=== PATIENT | male | born 1980 | race Caucasian/White ===

== ENCOUNTER 2018-11-23 07:04 | Inpatient (IN) | payer OTHER ==
[2018-11-23] MEDS ORDERED: ADENOSINE 6 MG/2 ML VIAL ONE (07:21)
[2018-11-23] MEDS ORDERED: DILTIAZEM 25 MG/5 ML VIAL IVP ONE ×3 (07:26→15:05)
[2018-11-23] MEDS ORDERED: ONDANSETRON 4 MG/2 ML VIAL ONE (07:27)
[2018-11-23] MEDS ORDERED: DILTIAZEM 125 MG in D5W 125 ML IV ONE (07:29)
--- NOTE | 2018-11-23 07:34 | EDPHY ---
H & P Stated Complaint: R leg swelling Time Seen by Provider: 11/23/18 07:27 HPI/ROS: CHIEF COMPLAINT: Right leg pain HISTORY OF PRESENT ILLNESS: 38-year-old male presents with right leg pain. Onset of severe right lower extremity pain this morning. The pain is constant and aching. The pain extends from the thigh down to the foot. Associated with swelling in the right lower extremity. No other associated symptoms and no alleviating or aggravating factors. No chest pain or shortness of breath. No recent trauma and no prior similar symptoms. REVIEW OF SYSTEMS: complete 10 point ROS reviewed and is negative except for the noted elements in the HPI Source: Patient - Personal History Current Tetanus/Diphtheria Vaccine: Yes Current Tetanus Diphtheria and Acellular Pertussis (TDAP): Yes - Medical/Surgical History Hx Asthma: No Hx Chronic Respiratory Disease: No Hx Diabetes: No Hx Cardiac Disease: No Hx Renal Disease: No Hx Cirrhosis: No Hx Alcoholism: No Hx HIV/AIDS: No Hx Splenectomy or Spleen Trauma: No Other PMH: GERD - Social History Smoking Status: Current some day smoker Alcohol Use: Sober Drug Use: None - Physical Exam Exam: General Appearance: Alert, pleasant, obese Eyes: Pupils equal and round, no conjunctival pallor or injection ENT, Mouth: Mucous membranes moist Neck: Normal inspection Respiratory: Lungs are clear to auscultation anteriorly Cardiovascular: Irregularly irregular tachycardia Gastrointestinal: Abdomen is soft and nontender Neurological: A&O, motor 5/5, able to hold right lower extremity up against gravity Skin: Warm and dry Extremities: Bilateral pedal edema 3+ Vascular: unable to palpate pedal pulses bilaterally, feet are cold Psychiatric: Mood and affect normal Constitutional: Initial Vital Signs Heart Rate 194 H 11/23/18 07:08 Respiratory Rate 30 H 11/23/18 07:08 Blood Pressure 168/123 H 11/23/18 07:08 O2 Sat (%) 99 11/23/18 07:08 O2 Delivery Mode Nasal Cannula O2 (L/minute) 2 Allergies/Adverse Reactions: amoxicillin Allergy (Verified 11/23/18 09:51) Other-Enter Comments Penicillins Allergy (Verified 11/23/18 09:51) Other-Enter Comments Home Medications: Medication Instructions Recorded Ibuprofen [Motrin (*)] 200 mg PO DAILY PRN 11/23/18 Omeprazole 20 mg PO Q2D 11/23/18 Medical Decision Making - Diagnostics EKG Interpretation: EKG interpreted by me reveals atrial fibrillation, ventricular rate 200, low voltage throughout, poor R-wave progression. Interpretation: Abnormal EKG Imaging Results: Imaging Impressions Extremity Venous Study 11/23/18 07:28 Impression: 1. No evidence of deep vein thrombosis, with dampened venous waveforms. 2. No detectable arterial blood flow. Findings discussed with KENYA TOBIAS 11/23/2018 at 814. Chest/Thorax CTA 11/23/18 07:59 Impression: 1. Small focus of pulmonary embolism involving a right lower lobe branch. 2. Clot or filling defect in the left atrium on the left, extending to the left atrial appendage. 3. Large bilateral pleural effusions. 4. Nonspecific pulmonary nodule, noncalcified, in the right upper lobe, with linear nodular density in the right middle lobe with focal calcification. These are all nonspecific and could represent scar/inflammatory process. 5. No pericardial effusion. Findings and recommendations discussed with Dr. Kenya Tobias at 0947 hours on November 23, 2018. Final report concurs with initial preliminary interpretation. ED Course/Re-evaluation: This patient presents with a chief complaint of right lower extremity pain. 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 Stat EKG reveals atrial fibrillation with RVR. Clinical presentation concerning for acute thromboembolism. Distal pulses are nonpalpable, will obtain Doppler. Feet also cool, query whether this is secondary to vascular insufficiency versus extreme cold weather this morning. 0735: Troponin elevated at 0.38. EKG reviewed and reveals no ST segment elevation.. Echocardiogram ordered and cardiology consulted. Diltiazem 10 mg IV given, heart rate 160s. 0740: d/w Dr. Corona, will see in ED. 0815: RLE sono: no DVT, unable to locate arterial flow. ECHO complete, Dr. Vargas in room with pt. Discussed Heparin initiation, though concern for pericardial effusion with low voltage on EKG. Will send pt to CT for chest/abd with runoff while Dr. Vargas reviews ECHO. 0855: d/w Dr. 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 No effusion present, okay for initiation of heparin. Heparin per weight based protocol initiated. CT scan results pending. Patient remains in atrial fibrillation, with a ventricular rate in the 160s. The diltiazem drip was just increased to 15 milligrams/hour IV. Maintaining an adequate blood pressure on the diltiazem drip. 0950: CT results per Dr. Kassi Yang reveal a left atrial thrombus, left popliteal artery thrombus, right SFA thrombus and bilateral acute renal infarcts. There is also a tiny right lower lobe pulmonary embolism, bilateral pleural effusions and anasarca. Discussion regarding possible IR thrombectomy. 10am: Consulted Dr. Zoey Alanis for consideration of surgical thrombectomy. 1005: d/w Dr. Vargas, EF less than 5%, discussed CT results, will d/w Dr. Yang. Ultimately this patient went directly to the operating room for thrombectomy with Dr. Alanis. He will go to the ICU for further care. I spent a total of 60 minutes of critical care time in obtaining history, performing a physical exam, bedside monitoring of interventions, collecting and interpreting tests and discussion with consultants but not including time spent performing procedures. - Data Points Laboratory Results: Laboratory Results 11/23/18 07:22 11/23/18 07:22 11/23/18 11/23/18 11/23/18 07:40 07:25 07:22 WBC RBC Hgb POC Hgb 19.0 gm/dL H gm/dL (13.7-17.5) Hct POC Hct 56 % H % (40-51) MCV MCH MCHC RDW Plt Count MPV Neut % (Auto) Lymph % (Auto) Haines % (Auto) Eos % (Auto) Baso % (Auto) Nucleat RBC Rel Count Absolute Neuts (auto) Absolute Lymphs (auto) Absolute Monos (auto) Absolute Eos (auto) Absolute Basos (auto) Absolute Nucleated RBC Immature Gran % Immature Gran # PT INR APTT D-Dimer POC Sodium 133 mEq/L L mEq/L (135-145) Sodium POC Potassium 4.3 mEq/L mEq/L (3.3-5.0) Potassium POC Chloride 94 mEq/L L mEq/L (97-110) Chloride Carbon Dioxide POC Total CO2 21 mEq/L L mEq/L (22-31) Anion Gap POC BUN 17 mg/dL mg/dL (7-23) BUN Creatinine POC Creatinine 0.9 mg/dL mg/dL (0.7-1.3) Estimated GFR Glucose POC Glucose 415 mg/dL H mg/dL (70-100) Hemoglobin A1c Estim Average Glucose Calcium Magnesium Total Bilirubin Conjugated Bilirubin Unconjugated Bilirubin AST ALT Alkaline Phosphatase Creatine Kinase CK-MB (CK-2) Fraction CK-MB (CK-2) % Creatine Kinase Interp POC Troponin I 0.38 ng/mL H ng/mL (0.00-0.08) Troponin I C-React Prot High Sens Cancelled NT-Pro-B Natriuret Pep Total Protein Albumin Triglycerides Cholesterol Cholesterol Risk Factr LDL Cholesterol, Calc LDL Risk Factor VLDL Cholesterol Non-HDL Cholesterol HDL Cholesterol LDL/HDL Ratio Cholesterol/HDL Ratio TSH Specimen Hemolysis Ethyl Alcohol 11/23/18 11/23/18 11/23/18 07:22 07:22 07:22 WBC RBC Hgb POC Hgb Hct POC Hct MCV MCH MCHC RDW Plt Count MPV Neut % (Auto) Lymph % (Auto) Haines % (Auto) Eos % (Auto) Baso % (Auto) Nucleat RBC Rel Count Absolute Neuts (auto) Absolute Lymphs (auto) Absolute Monos (auto) Absolute Eos (auto) Absolute Basos (auto) Absolute Nucleated RBC Immature Gran % Immature Gran # PT INR APTT D-Dimer POC Sodium Sodium POC Potassium Potassium POC Chloride Chloride Carbon Dioxide POC Total CO2 Anion Gap POC BUN BUN Creatinine POC Creatinine Estimated GFR Glucose POC Glucose Hemoglobin A1c 11.4 % H % (4.0-6.0) Estim Average Glucose 280 mg/dL H mg/dL (68-126) Calcium Magnesium 1.8 mg/dL mg/dL (1.6-2.3) Total Bilirubin 2.5 mg/dL H mg/dL (0.1-1.4) Conjugated Bilirubin 1.5 mg/dL H mg/dL (0.0-0.5) Unconjugated Bilirubin 1.0 mg/dL mg/dL (0.0-1.1) AST 115 IU/L H IU/L (17-59) ALT 63 IU/L IU/L (21-72) Alkaline Phosphatase 129 IU/L H IU/L (38-126) Creatine Kinase 2217 IU/L H IU/L (0-224) CK-MB (CK-2) Fraction 11.40 ng/mL H ng/mL (0.00-4.55) CK-MB (CK-2) % 0.5 % % (0.0-4.0) Creatine Kinase Interp NEGATIVE (NEGATIVE) POC Troponin I Troponin I 0.353 ng/mL H ng/mL (0.000-0.034) C-React Prot High Sens > 15.0 mg/L mg/L NT-Pro-B Natriuret Pep Cancelled 5190 pg/mL H pg/mL (0-125) Total Protein 7.0 g/dL g/dL (6.3-8.2) Albumin 3.6 g/dL g/dL (3.5-5.0) Triglycerides 110 mg/dL mg/dL (40-150) Cholesterol 109 mg/dL L mg/dL (140-200) Cholesterol Risk Factr 1.0 (0.2-1.0) LDL Cholesterol, Calc 64 mg/dL L mg/dL (70-100) LDL Risk Factor 1.0 (0.2-1.0) VLDL Cholesterol 22 mg/dL mg/dL (8-25) Non-HDL Cholesterol 86 mg/dL L mg/dL (90-129) HDL Cholesterol 23 mg/dL L mg/dL (40-65) LDL/HDL Ratio 2.78 RATIO RATIO (1.00-3.64) Cholesterol/HDL Ratio 4.74 RATIO RATIO (1.00-4.97) TSH Cancelled 6.260 uIU/mL H uIU/mL (0.465-4.680) Specimen Hemolysis Cancelled 162 Ethyl Alcohol Cancelled < 10 mg/dL mg/dL (0-10) 11/23/18 11/23/18 11/23/18 07:22 07:22 07:22 WBC 16.75 10^3/uL H 10^3/uL (3.80-9.50) RBC 6.18 10^6/uL 10^6/uL (4.40-6.38) Hgb 15.8 g/dL g/dL (13.7-17.5) POC Hgb Hct 50.7 % % (40.0-51.0) POC Hct MCV 82.0 fL fL (81.5-99.8) MCH 25.6 pg L pg (27.9-34.1) MCHC 31.2 g/dL L g/dL (32.4-36.7) RDW 14.6 % % (11.5-15.2) Plt Count 257 10^3/uL 10^3/uL (150-400) MPV 11.4 fL fL (8.7-11.7) Neut % (Auto) 84.8 % H % (39.3-74.2) Lymph % (Auto) 9.3 % L % (15.0-45.0) Haines % (Auto) 4.7 % % (4.5-13.0) Eos % (Auto) 0.1 % L % (0.6-7.6) Baso % (Auto) 0.3 % % (0.3-1.7) Nucleat RBC Rel Count 0.0 % % (0.0-0.2) Absolute Neuts (auto) 14.20 10^3/uL H 10^3/uL (1.70-6.50) Absolute Lymphs (auto) 1.56 10^3/uL 10^3/uL (1.00-3.00) Absolute Monos (auto) 0.79 10^3/uL 10^3/uL (0.30-0.80) Absolute Eos (auto) 0.02 10^3/uL L 10^3/uL (0.03-0.40) Absolute Basos (auto) 0.05 10^3/uL 10^3/uL (0.02-0.10) Absolute Nucleated RBC 0.00 10^3/uL 10^3/uL (0-0.01) Immature Gran % 0.8 % % (0.0-1.1) Immature Gran # 0.13 10^3/uL H 10^3/uL (0.00-0.10) PT 16.6 SEC H SEC (12.0-15.0) INR 1.32 H (0.83-1.16) APTT 28.7 SEC SEC (23.0-38.0) D-Dimer 13.71 ug/mLFEU H ug/mLFEU (0.00-0.50) POC Sodium Sodium 129 mEq/L L mEq/L (135-145) POC Potassium Potassium 5.9 mEq/L H mEq/L (3.5-5.2) POC Chloride Chloride 96 mEq/L L mEq/L (97-110) Carbon Dioxide 19 mEq/l L mEq/l (22-31) POC Total CO2 Anion Gap 14 mEq/L mEq/L (6-14) POC BUN BUN 17 mg/dL mg/dL (7-23) Creatinine 0.9 mg/dL mg/dL (0.7-1.3) POC Creatinine Estimated GFR > 60 Glucose 416 mg/dL H mg/dL (70-100) POC Glucose Hemoglobin A1c Estim Average Glucose Calcium 8.7 mg/dL mg/dL (8.5-10.4) Magnesium Total Bilirubin Conjugated Bilirubin Unconjugated Bilirubin AST ALT Alkaline Phosphatase Creatine Kinase CK-MB (CK-2) Fraction CK-MB (CK-2) % Creatine Kinase Interp POC Troponin I Troponin I C-React Prot High Sens NT-Pro-B Natriuret Pep 5220 pg/mL H pg/mL (0-125) Total Protein Albumin Triglycerides Cholesterol Cholesterol Risk Factr LDL Cholesterol, Calc LDL Risk Factor VLDL Cholesterol Non-HDL Cholesterol HDL Cholesterol LDL/HDL Ratio Cholesterol/HDL Ratio TSH Specimen Hemolysis 131 Ethyl Alcohol Medications Given: Aspirin Buffered (Aspirin Ec) 81 mg PO DAILY [facility] Stop: 05/22/19 09:59 Last Admin: 11/23/18 11:03 Dose: Not Given Miscellaneous Medication (Omeprazole [Omeprazole]) 20 mg PO Q2D [facility] Stop: 05/22/19 09:59 Last Admin: 11/23/18 11:02 Dose: Not Given Discontinued Medications Digoxin (Lanoxin Injections) 125 mcg IVP Q1 [facility] Stop: 11/23/18 12:01 Last Admin: 11/23/18 11:39 Dose: 125 mcg Diltiazem HCl (Cardizem 25 Mg/5 Ml Vial) 10 mg IVP EDNOW ONE Stop: 11/23/18 07:29 Last Admin: 11/23/18 07:35 Dose: 10 mg Heparin Sodium (Porcine) (Heparin Injection) 0 unit IVP EDNOW ONE Stop: 11/23/18 08:55 Last Admin: 11/23/18 09:10 Dose: 10,000 units Heparin Sodium (Porcine) (Heparin Flush 2,000 Unit/Ns 1,000 Ml) Confirm Administered Dose 2,000 unit .ROUTE .STK-MED ONE Stop: 11/23/18 12:22 Last Admin: 11/23/18 14:02 Dose: 2,000 unit Diltiazem HCl 125 mg/ Dextrose 125 mls @ 0 mls/hr IV EDNOW ONE; As Directed PRN Reason: Protocol Stop: 11/23/18 07:30 Last Admin: 11/23/18 07:53 Dose: 125 mls Sodium Chloride (Ns) 500 mls @ 1,000 mls/hr IV EDNOW ONE PRN Reason: Protocol Stop: 11/23/18 08:11 Last Admin: 11/23/18 07:53 Dose: 500 mls Heparin Sodium (Porcine) (Heparin 50 Units/Ml (Premix)) 500 mls @ 0 mls/hr IV EDNOW ONE; Per Protocol PRN Reason: Protocol Stop: 11/23/18 08:55 Last Admin: 11/23/18 09:10 Dose: 500 mls Amiodarone HCl (Amiodarone Hcl) 100 mls @ 600 mls/hr IV ONCE ONE PRN Reason: Protocol Stop: 11/23/18 09:58 Last Admin: 11/23/18 10:21 Dose: Not Given Cefazolin Sodium/Dextrose (Ancef) 100 mls @ 200 mls/hr IV ONCALL ONE Stop: 11/23/18 13:59 Last Admin: 11/23/18 14:02 Dose: 100 mls Midazolam HCl (Versed) 2 mg IVP ONCALL ONE Stop: 11/23/18 12:45 Last Admin: 11/23/18 13:20 Dose: 2 mg Morphine Sulfate (Morphine) 4 mg IVP EDNOW ONE Stop: 11/23/18 07:36 Last Admin: 11/23/18 07:36 Dose: 4 mg Ondansetron HCl (Zofran) 4 mg IVP EDNOW ONE Stop: 11/23/18 07:36 Last Admin: 11/23/18 07:36 Dose: 4 mg Point of Care Test Results: Chemistry 11/23/18 11/23/18 07:40 07:25 POC Sodium 133 mEq/L L mEq/L (135-145) POC Potassium 4.3 mEq/L mEq/L (3.3-5.0) POC Chloride 94 mEq/L L mEq/L (97-110) POC Total CO2 21 mEq/L L mEq/L (22-31) POC BUN 17 mg/dL mg/dL (7-23) POC Creatinine 0.9 mg/dL mg/dL (0.7-1.3) POC Glucose 415 mg/dL H mg/dL (70-100) POC Troponin I 0.38 ng/mL H ng/mL (0.00-0.08) ISTAT H&H 11/23/18 07:40 POC Hgb 19.0 gm/dL H gm/dL (13.7-17.5) POC Hct 56 % H % (40-51) Departure - Departure Disposition: [facility] Inpatient Acute Clinical Impression: Arterial embolism and thrombosis of lower extremity, Renal infarct Cardiomyopathy Qualifiers: Cardiomyopathy type: unspecified Qualified Code(s): I42.9 - Cardiomyopathy, unspecified Condition: Critical
[2018-11-23] MEDS ORDERED: ONDANSETRON 4 MG/2 ML VIAL IVP ONE (07:35)
[2018-11-23 07:38] LABS: PLATELET COUNT 257 10^3/uL (150-400)
[2018-11-23] MEDS ORDERED: NS 500 ML IV ONE (07:42)
[2018-11-23 07:46] LABS: INR 1.32 (0.83-1.16); PROTIME(PATIENT) 16.6 SEC (12.0-15.0)
[2018-11-23] MEDS ORDERED: IOHEXOL 300 mgI/ML (OMNIPAQUE) 150 ML BTL IV ONE ×2 (08:04→08:05)
[2018-11-23] MEDS ORDERED: IOHEXOL 350mgI/ML (OMNIPAQUE) 150 ML BTL IV ONE (08:24)
[2018-11-23] MEDS ORDERED: HEPARIN 10,000 UNIT/10 ML MDV (1,000 UNIT/ML) IVP ONE (08:54)
[2018-11-23] MEDS ORDERED: HEPARIN/DEXTROSE 500 ML IV ONE (08:54)
--- NOTE | 2018-11-23 09:07 | ECHO ---
[email or web address] [address] [address] Main: [phone] Fax: Transthoracic Echocardiogram Name: ESSENCE CORDON MR#: [id number] Study Date: 11/23/2018 Study Time: 08:08 AM Date of : 1980 Age: 38 year(s) Height: 193 cm (76 in.) Weight: 158.76 kg (350 lb.) BSA: 2.81 m2 Gender: Male Examination: Echo Indication: Afib with RVR, elevated troponin, ?PE Image Quality: Technically Difficult Contrast: Requested by: Kenya Tobias BP: 143 mmHg/128 mmHg Heart Rate: Rhythm: Indication: Afib with RVR, elevated troponin, ?PE Procedure Staff Electric Mule Operator: Peggy Rogers [facility] Reading Physician: Jason Vargas MD Requesting Provider: Conclusions: No pericardial effusion. Severely reduced LV systolic function. Doppler suggests no significant valvular abnormalities. Measurements: Chambers Valvular Assessment AV/MV Valvular Assessment TV/PV Normal Normal Normal Name Value Range Name Value Range Name Value Range Continued Measurements: Findings: Left Ventricle: Reduced LV function. Extremely technically difficult exam due to patient body habitus. Very limited evaluation of all cardiac structures. (No Signature Object) Patient: ESSENCE CORDON Study Date: 11/23/2018 Page 1 of 1 08:08 AM [id number]
[2018-11-23] MEDS ORDERED: AMIODARONE HCL 100 ML IV ONE (09:49)
[2018-11-23] MEDS ORDERED: FUROSEMIDE 20 MG/2 ML VIAL IVP ONE (09:49)
--- NOTE | 2018-11-23 09:55 | PDGENHP ---
History and Physical History and Physical: CC: Leg pain HISTORY: The patient states he has new onset of severe diffuse achy pain with some numb sensation and tingling throughout RLE, but not in a radicular anatomic pattern and no associated lumbar pain. He does acknowledge chronic leg edema felt due to venous insufficiency and uses support hose. He has no history of thromboembolic dz, no hx of arterial dz, but he does smoke, does drink heavily, and has some cocaine use In the ER leg ischemia was suspected and CT angio done. He was found to have rapid afib, which is new for him, with no other history of heart illenss. He has had no angina like pain or palpitations. 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 I have reviewed the list and ordered appropriate medicines. PHYSICAL EXAMINATION: Vital Signs:initially hypertensive with HR 200 irregular, no fever, resps ok; dilt drip started in ER with better rate control and blood pressure Patient Relations Coordinator: rapid a fib Examination: General: alert, anxious, uncomfortable; marked central obesity Skin: warm, dry; remarkable facial plethora HEENT: normal Neck: no mass or jvd Resps: relaxed Lungs: clear breath sounds Heart: tachy, irregular, no murmur Abdomen: soft, nondistended, nontender, +BS, no mass Upper Extremities: normal Lower Extremities: R leg looks ischemic from hip down, cold discolored, painful , decreased sensation; L leg has less pronounced signs of ischemia below knee; notable chronic stasis changes are apparent bilaterally No Bleeding or bruising Neurologic: normal speech/language, 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, no focal weakness IV site: looks normal LABORATORY DATA: Elevated white count 51524 with predominance neutrophils, platelets normal D-dimer elevated 13.7 Metabolic acidosis present with CO2 19 Sodium was low 129 likely caused by hyperglycemia and not a true hyponatremia K 5.9 Minimal elevation of troponin is caused by his leg ischemia, CPK 2200+ urine concentrated (but after IV ) UA with + dip for blood, and protein ( noncath'd) and hyaline casts c/w acute infarcts Urine + for cocaine, marijuana (narcotics were given in ER which is likely source of narcotic in urine) RADIOLOGY STUDIES: I reviewed images from CT angiogram runoff which show acute arterial occlusion right SFA 100%, occlusion at low L popliteal artery, both renal artheries occluded, and sizable thrombus in Left Atrium of heart. There is anasarca and ascites. 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 The plan will be rate control and anticoagulation as far as heart issues for now, and I agree with this. I reviewd the case with Dr De Jesus and Dr Hicks. All feel he is at high risk of bleeding with any attempt at thrombolysis and also risk or renal failure with more contrast. Dr Alanis has taken the patient to the OR for thrombectomy of R SFA. I observed in the OR and there was quite a bit of thrombus removed. He did make some urine just before surgery. PLANS: * Admission ICU * Heparin drip was started in the ER continue that for now * follow hemodynamics closely, will need somewhat high filling pressures * follow renal fxn, lytes carefully; have reviewed w Dr Cervantes who will see him * will see what resp status is post op, may need assisted ventilation of on form or another, have reviewed w Dr Wright * Will start insulin therapy with a drip at this time * with his renal issues likely need to avoid ACEI, so with his cardiac issues would like to use some B Annabella if hemodynamics tolerate; this would also be helpful if he has any withdrawal from etoh/cocaine * CIWA * thiamine * * Expect sodium to improve with treatment of glucose as well > 95 mins bedside critical care time by me today
[2018-11-23] MEDS ORDERED: NALOXONE HCL 0.4 MG/ML INJ IVP PRN (09:59)
[2018-11-23] MEDS ORDERED: NON-FORMULARY NEW DRUG (Omeprazole [Omeprazole] 20 MG) PO SCH (10:00)
[2018-11-23] MEDS ORDERED: ZOLPIDEM TARTRATE 5 MG TAB PO PRN (10:01)
[2018-11-23] MEDS ORDERED: ONDANSETRON 4 MG/2 ML VIAL IVP PRN (10:01)
--- NOTE | 2018-11-23 10:03 | PDCARCONS ---
Cardiology Consult Reason for Consult: Leg pain Chief Complaint: Leg pain Requesting Physician: Torin History of Present Illness: 38-year-old male no prior cardiovascular history history of alcohol use, cocaine use admitted with acute onset right leg pain. 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 He chronically uses venous support hose for severe venous insufficiency. He has had an ulcerated great toe which he thought was due to a callus. He was well until today when he developed the acute onset of right pain in his leg. This was associated with numbness and tingling. He came to the emergency department where he was found to be tachycardic with a rate of 200 beats per minute. An EKG showed atrial fibrillation with rapid ventricular response. There is overall low voltage across the precordium asked to comment. He had an echocardiogram performed to exclude pericardial effusion. There was no pericardial effusion however there is a severe dilated cardiomyopathy with an ejection fraction less than 20%. Patient denies PND orthopnea. He does not feel palpitations he has had no syncope or near syncope. He has had no chest pain. He did have a viral type illness several weeks ago which he described as influenza. This has resolved and he is feeling well. Patient has no family history of cardiomyopathy Is no history of diabetes, hypertension, hyperlipidemia. He is a smoker. History Information - Allergies/Home Medication List Allergies/Adverse Reactions: amoxicillin Allergy (Verified 11/23/18 09:51) Other-Enter Comments Penicillins Allergy (Verified 11/23/18 09:51) Other-Enter Comments Home Medications: Ibuprofen [Motrin (*)] 200 mg PO DAILY PRN 11/23/18 [Last Taken Unknown] Prilosec 11/23/18 [Last Taken Unknown] I have personally reviewed and updated: family history, medical history, social history, surgical history Past Medical History: - Social History Smoking Status: Current some day smoker Alcohol Use: Sober Drug Use: None Physical Exam Physical Exam: Temp Pulse Resp BP Pulse Ox 149 H 18 114/90 H 95 11/23/18 09:44 11/23/18 09:44 11/23/18 09:44 11/23/18 09:44 O2 (L/minute) 2 Constitutional: obese, other (Mild respiratory distress) Eyes: anicteric sclera Ears, Nose, Mouth, Throat: dry mucous membranes Cardiovascular: irregularly irregular Respiratory: respiratory distress Gastrointestinal: soft, non-tender abdomen Skin: No rash Musculoskeletal: other (Ulceration of the pinky toe on the right with exudate. Anasarca to the belly button.) Neurologic: AAOx3, No facial droop Psychiatric: interacting appropriately Lymph, Heme, Immunologic: no cervical LAD, no supraclavicular LAD Lab and Imaging 11/23/18 07:22 11/23/18 07:22 WBC 16.75 10^3/uL (3.80-9.50) H 11/23/18 07:22 RBC 6.18 10^6/uL (4.40-6.38) 11/23/18 07:22 Hgb 15.8 g/dL (13.7-17.5) 11/23/18 07:22 POC Hgb 19.0 gm/dL (13.7-17.5) H 11/23/18 07:40 Hct 50.7 % (40.0-51.0) 11/23/18 07:22 POC Hct 56 % (40-51) H 11/23/18 07:40 MCV 82.0 fL (81.5-99.8) 11/23/18 07:22 MCH 25.6 pg (27.9-34.1) L 11/23/18 07:22 MCHC 31.2 g/dL (32.4-36.7) L 11/23/18 07:22 RDW 14.6 % (11.5-15.2) 11/23/18 07:22 Plt Count 257 10^3/uL (150-400) 11/23/18 07:22 MPV 11.4 fL (8.7-11.7) 11/23/18 07:22 Neut % (Auto) 84.8 % (39.3-74.2) H 11/23/18 07:22 Lymph % (Auto) 9.3 % (15.0-45.0) L 11/23/18 07:22 [place] % (Auto) 4.7 % (4.5-13.0) 11/23/18 07:22 Eos % (Auto) 0.1 % (0.6-7.6) L 11/23/18 07:22 Baso % (Auto) 0.3 % (0.3-1.7) 11/23/18 07:22 Nucleat RBC Rel Count 0.0 % (0.0-0.2) 11/23/18 07:22 Absolute Neuts (auto) 14.20 10^3/uL (1.70-6.50) H 11/23/18 07:22 Absolute Lymphs (auto) 1.56 10^3/uL (1.00-3.00) 11/23/18 07:22 Absolute Monos (auto) 0.79 10^3/uL (0.30-0.80) 11/23/18 07:22 Absolute Eos (auto) 0.02 10^3/uL (0.03-0.40) L 11/23/18 07:22 Absolute Basos (auto) 0.05 10^3/uL (0.02-0.10) 11/23/18 07: Absolute Nucleated RBC 0.00 10^3/uL (0-0.01) 11/23/18 07: Immature Gran % 0.8 % (0.0-1.1) 11/23/18 07: Immature Gran # 0.13 10^3/uL (0.00-0.10) H 11/23/18 07:22 PT 16.6 SEC (12.0-15.0) H 11/23/18 07:22 INR 1.32 (0.83-1.16) H 11/23/18 07:22 APTT 28.7 SEC (23.0-38.0) 11/23/18 07:22 D-Dimer 13.71 ug/mLFEU (0.00-0.50) H 11/23/18 07:22 POC Sodium 133 mEq/L (135-145) L 11/23/18 07:40 Sodium 129 mEq/L (135-145) L 11/23/18 07:22 POC Potassium 4.3 mEq/L (3.3-5.0) 11/23/18 07:40 Potassium 5.9 mEq/L (3.5-5.2) H 11/23/18 07:22 POC Chloride 94 mEq/L (97-110) L 11/23/18 07:40 Chloride 96 mEq/L (97-110) L 11/23/18 07:22 Carbon Dioxide 19 mEq/l (22-31) L 11/23/18 07:22 POC Total CO2 21 mEq/L (22-31) L 11/23/18 07:40 Anion Gap 14 mEq/L (6-14) 11/23/18 07:22 POC BUN 17 mg/dL (7-23) 11/23/18 07:40 BUN 17 mg/dL (7-23) 11/23/18 07:22 Creatinine 0.9 mg/dL (0.7-1.3) 11/23/18 07:22 POC Creatinine 0.9 mg/dL (0.7-1.3) 11/23/18 07:40 Estimated GFR > 60 11/23/18 07:22 Glucose 416 mg/dL (70-100) H 11/23/18 07:22 POC Glucose 415 mg/dL (70-100) H 11/23/18 07:40 Calcium 8.7 mg/dL (8.5-10.4) 11/23/18 07:22 POC Troponin I 0.38 ng/mL (0.00-0.08) H 11/23/18 07:25 NT-Pro-B Natriuret Pep 5220 pg/mL (0-125) H 11/23/18 07:22 Specimen Hemolysis 131 11/23/18 07:22 EKG Interpretation: Positive for: other (Atrial fibrillation with rapid ventricular response. Low voltage across the precordial leads.) A/P Assessment: Impression: New onset dilated cardiomyopathy in this 38-year-old male complicated by morbid obesity, substance abuse. Patient clearly has atrial fibrillation in response. With right leg pain concerned about embolic phenomena. Recommendations are for anticoagulation. Recommendations are for rate control with agents that would not suppress inotrope P in light of severely reduced LV function. Will start amiodarone and digoxin. Begin low-dose beta-sasha. Begin low-dose Lasix in the setting of volume overload. With hyperkalemia at this point would avoid Aldactone, Yao inhibitor but this will need to be added soon. Will try to add Isordil hydralazine in the short term for afterload reduction. Plan for serologic evaluation for other etiologies for his myopathy. Clearly he will need advanced heart failure treatment. Will follow along with you. Review of Systems Review of Systems: - Review of Systems Constitutional: malaise. denies: chills, fever EENTM: no symptoms reported Respiratory: no symptoms reported Cardiac: no symptoms reported Gastrointestinal/Abdominal: diarrhea. denies: nausea, vomiting Genitourinary: no symptoms Musculoskelatal: other (Leg pain) Skin: lesions, rash Neurological: no symptoms Hematologic/Lymphatic: no symptoms reported Immunologic/allergic: no symptoms reported
[2018-11-23] MEDS ORDERED: DIGOXIN 500 MCG/2 ML AMP ONE (10:35)
[2018-11-23] MEDS: DIGOXIN 500 MCG/2 ML AMP IVP SCH ×3 (10:38→17:51)
[2018-11-23] MEDS ORDERED: ISOSORBIDE DINITRATE 20 MG TAB PO SCH (11:00)
[2018-11-23] MEDS: ASPIRIN EC 81 MG TAB PO SCH (11:03)
[2018-11-23 11:30] LABS: CREATINE KINASE 2217 IU/L (0-224)
[2018-11-23] MEDS ORDERED: IOTHALAMATE MEG (CONRAY) 50 ML VIAL IV ONE (12:21)
[2018-11-23] MEDS ORDERED: PAPAVERINE HCL 60 MG/2 ML SDV ONE (12:21)
[2018-11-23] MEDS ORDERED: BACITRACIN 50,000 UNITS/10 ML SYR IRR ONE (12:22)
[2018-11-23] MEDS ORDERED: BUPIVACAINE 0.5% 30 ML SDV ONE (12:22)
[2018-11-23] MEDS ORDERED: POLYMYXIN B SULFATE 500,000 UNIT/10 ML SYR IRR ONE (12:22)
[2018-11-23] MEDS ORDERED: CEFAZOLIN 2 GM/DEXTROSE/100 ML BAG IV ONE (12:24)
[2018-11-23] MEDS ORDERED: VANCOMYCIN HCL/NORMAL SALINE 250 ML IV ONE (12:32)
[2018-11-23] MEDS ORDERED: fentaNYL 100 MCG/2 ML INJ ONE ×3 (12:37→14:21)
--- NOTE | 2018-11-23 12:43 | PDANEPAE ---
ANE History of Present Illness HERE FOR EMBOLECTOMY FOR ACUTE LE embolus. Cardiomyopathy with EF less than 20 AF with RVR ANE Past Medical History - Cardiovascular History Hx Hypertension: No Hx Arrhythmias: Yes Hx Chest Pain: No Hx Coronary Artery / Peripheral Vascular Disease: No Hx CHF / Valvular Disease: Yes Hx Palpitations: No - Pulmonary History Hx COPD: No Hx Asthma/Reactive Airway Disease: No Hx Recent Upper Respiratory Infection: No Hx Oxygen in Use at Home: No Hx Sleep Apnea: No - Endocrine History Hx Diabetes: No Hypothyroid: No Hyperthyroid: No - Renal History Hx Renal Disorders: Yes ANE Review of Systems Review of systems is: negative Review of Systems: - Exercise capacity Exercise capacity: <4 METS ANE Patient History - Allergies Allergies/Adverse Reactions: amoxicillin Allergy (Verified 11/23/18 09:51) Other-Enter Comments Penicillins Allergy (Verified 11/23/18 09:51) Other-Enter Comments - Home Medications Home medications: home medication list seen and reviewed Home Medications: Ibuprofen [Motrin (*)] 200 mg PO DAILY PRN 11/23/18 [Last Taken Unknown] Omeprazole 20 mg PO Q2D 11/23/18 [Last Taken 11/22/18] - NPO status NPO Status: no food or drink >8 hours - Smoking Hx Smoking Status: Current some day smoker - Alcohol Use Alcohol Use: Sober ANE Labs/Vital Signs - Labs Result Diagrams: 11/23/18 07:22 11/23/18 07:22 - Vital Signs Vital Signs: reviewed preoperatively; see RN documention for details Blood Pressure: 116/89 Heart Rate: 138 Respiratory Rate: 20 O2 Sat (%): 96 Height: 193.04 cm Weight: 158.757 kg ANE Physical Exam - Airway Neck exam: FROM, increased neck circumference Mallampati Score: Class 3 - Pulmonary Pulmonary: no respiratory distress - Cardiovascular Cardiovascular: irregularly irregular - ASA Status ASA Status: IV, E ANE Anesthesia Plan Anesthesia Plan: general endotracheal anesthesia Lines/Monitors: arterial line
[2018-11-23] MEDS ORDERED: MIDAZOLAM 2 MG/2 ML VIAL IVP ONE (12:44)
[2018-11-23] MEDS ORDERED: MIDAZOLAM 2 MG/2 ML VIAL ONE (12:52)
[2018-11-23] MEDS ORDERED: PHENYLEPHRINE HCL 100 MCG/ML SYR ONE (12:52)
[2018-11-23] MEDS ORDERED: ePHEDrine SULFATE 25 MG/5 ML SYR ONE (12:52)
[2018-11-23] MEDS ORDERED: LR 1,000 ML IV ONE (13:02)
[2018-11-23] MEDS ORDERED: KETAMINE 200 MG/20 ML VIAL ONE (13:10)
[2018-11-23] MEDS ORDERED: ceFAZolin 2 GM/DEXTROSE 100 ML IV ONE (13:30)
[2018-11-23] MEDS ORDERED: PROPOFOL 200 MG/20 ML VIAL ONE (13:30)
--- NOTE | 2018-11-23 14:36 | CPEKG ---
Test Reason : OPEN Blood Pressure : / mmHG Vent. Rate : 199 BPM Atrial Rate : 204 BPM P-R Int : 162 ms QRS Dur : 087 ms QT Int : 258 ms P-R-T Axes : -16 110 000 degrees QTc Int : 469 ms Atrial fibrillation with rapid V-rate Low voltage, extremity leads Anteroseptal infarct, old Borderline T abnormalities, inferior leads Confirmed by Kenya Tobias ([id number]) on 11/23/2018 2:35:50 PM Referred By: Kenya Tobias Confirmed By:Kenya Tobias
--- NOTE | 2018-11-23 14:36 | CPEKG ---
Test Reason : OPEN Blood Pressure : / mmHG Vent. Rate : 157 BPM Atrial Rate : 000 BPM P-R Int : 000 ms QRS Dur : 071 ms QT Int : 331 ms P-R-T Axes : 000 119 000 degrees QTc Int : 536 ms Atrial fibrillation Low voltage, extremity leads Prolonged QT interval Confirmed by Kenya Tobias ([id number]) on 11/23/2018 2:36:05 PM Referred By: Mulugeta Harkins Confirmed By:Kenya Tobias
[2018-11-23] MEDS ORDERED: ROCURONIUM 50 MG/5 ML VIAL ONE (14:56)
[2018-11-23] MEDS ORDERED: THROMBIN (BOVINE) 20,000 UNIT VIAL TP ONE (15:05)
[2018-11-23 15:09] LABS: HEPATITIS B SURFACE ANTIGEN NEGATIVE (NEGATIVE)
[2018-11-23 15:19] LABS: HEPATITIS B CORE AB IGM NEGATIVE (NEGATIVE)
[2018-11-23 15:28] LABS: HEPATITIS C ANTIBODY TOTAL NEGATIVE (NEGATIVE)
[2018-11-23] MEDS ORDERED: SUGAMMADEX SODIUM 200 MG/2 ML VIAL IVP ONE (15:47)
[2018-11-23] MEDS: hydrALAZINE 10 MG TAB PO SCH ×2 (16:00→22:48)
--- NOTE | 2018-11-23 16:10 | POSTANESTH ---
Post Anesthetic Evaluation Cardiovascular Status: Normal, Stable Respiratory Status: Normal, Stable Level of Consciousness/Mental Status: Mildly Sleepy, Arousable Pain Control: Adequate, Prn Tx Ordered Nausea/Vomiting Control: Adequate, Prn Tx Ordered Complications Possibly Related to Anesthesia: None Noted
--- NOTE | 2018-11-23 16:56 | POSTOPPROG ---
Post Op Note Date of Operation: 11/23/18 Surgeon: Jonathan Alanis Anesthesiologist: NITO Anesthesia: GET(General Endotracheal) Pre-op Diagnosis: RIGHT FEMORAL ARTERY OCCLUSION WITH EMBOLUS AND THROMBOSIS Post-op Diagnosis: SAME Indication: PAIN THREATENED LIMB Procedure: RIGHT FEMORAL-POPLITEAL EMBOLECTOMY AND THROMBECTOMY Findings: DEFINITE EMBOLI TO THE COMMON FEMORAL PROFUNDA FEMORALS AND SFA ORIGIN Inf/Abcess present in the surg proc area at time of surgery?: No Depth: Deep Incisional (Fascial) EBL: 50-100 Complications: NONE Specimen(s): EMBOLI
[2018-11-23] MEDS: DILTIAZEM 125 MG in D5W 125 ML IV SCH (17:10)
[2018-11-23] MEDS ORDERED: D50W 25 GM/50 ML SYR IVP PRN (17:20)
[2018-11-23] MEDS ORDERED: D5W 1,000 ML IV SCH ×2 (17:20→17:45)
[2018-11-23] MEDS: HEPARIN/DEXTROSE 500 ML IV SCH (17:30)
[2018-11-23] MEDS: INSULIN REGULAR HUMAN 100 UNIT in NS 100 ML IV SCH (17:43)
[2018-11-23] MEDS ORDERED: INSULIN REGULAR HUMAN 100 UNIT in NS 100 ML IV SCH (18:00)
[2018-11-23 18:13] LABS: INR 1.53 (0.83-1.16); PROTIME(PATIENT) 18.5 SEC (12.0-15.0)
[2018-11-23] MEDS: NS 1,000 ML IV SCH (18:32)
[2018-11-23] MEDS: CARVEDILOL 6.25 MG TAB PO SCH (18:44)
[2018-11-23] MEDS: ISOSORBIDE DINITRATE 10 MG TAB PO SCH (19:23)
[2018-11-23] MEDS: THIAMINE HCL 100 MG TAB PO SCH (19:23)
[2018-11-23 20:11] LABS: CREATINE KINASE 1235 IU/L (0-224)
[2018-11-23] MEDS: MELATONIN 3 MG TAB PO SCH (23:04)
[2018-11-24 06:14] LABS: CREATINE KINASE 1011 IU/L (0-224)
[2018-11-24 06:25] LABS: PLATELET COUNT 222 10^3/uL (150-400)
[2018-11-24] MEDS: HEPARIN 10,000 UNIT/10 ML MDV (1,000 UNIT/ML) IVP PRN (07:25)
[2018-11-24] MEDS ORDERED: PANTOPRAZOLE SODIUM 40 MG TAB PO SCH (09:00)
--- NOTE | 2018-11-24 10:03 | SOAPPROG ---
SOAP Progress Note Assessment/Plan: Assessment: 1. Dilated cardiomyopathy 2. Persistent atrial fibrillation complicated by multiple emboli 3. Ischemic leg secondary to emboli status post thrombectomy 4. Substance abuse positive urine tox for cocaine and THC 11/24/18 10:00 Impression: Stable hemodynamics with improved heart rate overnight. Improved perfusion to the right leg. Tolerating early medical therapy well. Etiology at this point unclear. Viral would top the list based on recent flu-like illness versus AFib with poorly controlled rate over significant period of time versus substance abuse. Other etiologies less likely. Will need further assessment once he has stabilized from his ischemic insult to his leg. Recommendations: Advanced heart failure consultation this afternoon. Continue heparin with transition to DOAC. Continue rate control strategy. Considerations for further risk stratification over the next several days. CT angiogram verses MR versus standard cardiac catheterization. Substance abuse will need to be discussed. Subjective: Feeling better. No shortness of breath, PND, orthopnea. No chest pain. Leg is improving. Objective: Vital Signs Temp Pulse Resp BP Pulse Ox 37.1 C 102 H 15 124/86 H 98 11/24/18 09:00 11/24/18 09:00 11/24/18 09:00 11/24/18 09:00 11/24/18 09:00 Laboratory Results 11/24/18 05:20 11/24/18 05:20 11/23/18 11/24/18 11/25/18 05:59 05:59 05:59 Intake Total 3785 Output Total 850 Balance 2935 PT 18.5 SEC (12.0-15.0) H 11/23/18 17:35 INR 1.53 (0.83-1.16) H 11/23/18 17:35 Laboratory Tests 11/24/18 11/24/18 11/24/18 05:20 05:20 06:23 Sodium 129 L Potassium 4.8 Creatinine 0.8 POC Glucose 193 H Creatine Kinase 1011 H Troponin I 0.577 H 11/24/18 08:15 Sodium Potassium Creatinine POC Glucose 195 H Creatine Kinase Troponin I Physical Exam - Physical Exam General Appearance: alert, mild distress, obese Respiratory: No wheezing Cardiac/Chest: irregularly irregular Abdomen: soft Skin: warm/dry Neuro/Psych: alert, No facial droop ICD10 Worksheet Patient Problems: Problems Problem Status Onset Cardiomyopathy Acute Arterial embolism and thrombosis of lower extremity Acute Renal infarct Acute Review of Systems - Review of Systems Constitutional: denies: chills, fever Respiratory: denies: shortness of breath, wheezing Cardiac: edema. denies: chest pain, irregular heart rate Gastrointestinal/Abdominal: no symptoms reported Genitourinary: no symptoms Skin: no symptoms Neurological: no symptoms Hematologic/Lymphatic: no symptoms reported
[2018-11-24] MEDS ORDERED: IOHEXOL 350mgI/ML (OMNIPAQUE) 150 ML BTL IV ONE ×4 (10:10→23:26)
--- NOTE | 2018-11-24 10:32 | HOSPPROG ---
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, also consider cocaine induced disease though he states minimal/uncommon intake of cocaine, denies meth * Diabetes mellitus with poor control at home, on insulin drip here * pseudohyponatremia due to high sugars * hyperkalemia * minimal elevation of troponin on blood testing in the ER is from his ischemic leg and I am not currently concerned about ischemic heart disease * Consider risk of of EtOH/cocaine withdrawal so will watch carefully for that, though his stated intake is low enough that this will not occur her if he is being truthful * Open wound on right 5th toe from a recent trauma, no definite signs of infection at present but given his poor circulation and diabetes will x-ray the foot * I have a strong suspicion for pulmonary HTN, R CHF from obesity hypovent/J LUIS; patient has chronic severe bilateral leg edema and chronic stasis dermatitis * Tobacco abuse * alcohol abuse I reviewed in detail today with doctors Jason Vargas in [place] Seen by me on hospitals rounds and multidisciplinary rounds today PLANS: * Ongoing IV heparin * Procedure today to try an open left popliteal artery * Follow renal function very closely * Continue current cardiac medications (Lasix, Coreg, digoxin, diltiazem, hydralazine) * Would consider switch from hydralazine to an Yao inhibitor if renal function remains stable * Continue heparin drip, follow sugars and electrolytes closely * X-rays of right foot to assess for any possible bony injury or infection of right 5th toe * Continue CIWA monitoring for the moment * Thiamin replacement * Acid suppression * will continue to review closely with cardiology; he will obviously need very close follow-up in the outpatient setting as well and he may end up turning out to need to consider referral for transplant if he remains a candidate * Recommend outpatient testing for sleep apnea SUBJECTIVE: Feels better with notably decreased pain and increased movement and right lower extremity Still of pain in left lower extremity below-knee No abdominal or flank pain No chills or sweats, no nausea or vomiting No dyspnea OBJECTIVE Vitals reviewed: Remains tachycardic and tachypneic, no fever, blood pressure is 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 The wound is right 5th toe still does not appear overtly infected but hard to tell with acute ischemia and chronic stasis pigmentation and edema; left leg below mid calf still cold with decreased sensation and with chronic stasis pigmentation but no diabetic foot ulcers; upper extremities okay Dry dressing over surgical wound from yesterday iv site ok Lab data: White count still elevated greater than 14,000 Very mild decrease in hemoglobin especially considering his vascular surgery yesterday Stable platelets Blood sugars markedly better in 160s to 190s CPK decreased to [address] angio with runoff done today for follow-up from yesterday, I reviewed the images: There is still some thrombus in the common femoral artery but that superficial femoral is now open and there is much better flow to the distal extremity. There is still complete occlusion of the left popliteal. Left atrial thrombus still visible, renal arteries still occluded no change in the renal infarcts no sign of bleeding at the infarcts Objective: Vital Signs Temp Pulse Resp BP Pulse Ox 37.1 C 102 H 15 124/86 H 98 11/24/18 09:00 11/24/18 09:00 11/24/18 09:00 11/24/18 09:00 11/24/18 09:00 Laboratory Results 11/24/18 05:20 11/24/18 05:20 11/23/18 11/24/18 11/25/18 06:59 06:59 06:59 Intake Total 3785 Output Total 850 Balance 2935 PT 18.5 SEC (12.0-15.0) H 11/23/18 17:35 INR 1.53 (0.83-1.16) H 11/23/18 17:35 - Time Spent With Patient Time Spent with Patient: greater than 35 minutes Time Spent with Patient: Greater than 35 minutes spent on this patients care, greater than 50% of time spent counseling, educating, and coordinating care regarding the above mentioned plan. ICD10 Worksheet Patient Problems: Problems Problem Status Onset Arterial embolism and thrombosis of lower extremity Acute Cardiomyopathy Acute Renal infarct Acute
[2018-11-24] MEDS: hydrALAZINE 10 MG TAB PO SCH ×3 (11:11→23:54)
[2018-11-24] MEDS: ASPIRIN EC 81 MG TAB PO SCH (11:11)
[2018-11-24] MEDS: ISOSORBIDE DINITRATE 10 MG TAB PO SCH ×3 (11:12→18:18)
[2018-11-24] MEDS: PANTOPRAZOLE SODIUM 40 MG TAB PO SCH (11:12)
[2018-11-24] MEDS: CARVEDILOL 6.25 MG TAB PO SCH ×2 (11:13→18:18)
[2018-11-24] MEDS: THIAMINE HCL 100 MG TAB PO SCH (11:13)
[2018-11-24] MEDS: DIGOXIN 50 MCG/ML UDSYR PO SCH (11:17)
--- NOTE | 2018-11-24 12:26 | PDMN ---
Medical Necessity Medical necessity: MCG: [facility] cardiology- pt presents with new numbness tingling in RLE, CT showed R leg ischemia with SFA occlusion, L leg ischemia with popliteal occlusion, bilat. renal artery occlusions and infarcts. L atrial thrombus, also new rapid afib, severely impaired L ventricular systolic function, suspect pro acute post viral cardiomyopathy, poss cocaine induced disease, hyperkalemia, DM, high risk ETOH/cocaine W/D, poss pulm HTN, R CHF from obesity hypovent/J LUIS., tobacco abuse, anticipate > 2 MN ongoing med nec care- further monitoring, eval and tx of above.
--- NOTE | 2018-11-24 12:31 | ASMTCASEMG ---
Living Arrangements What is your living Answers: Alone arrangement? Who do you live with? Type Of Residence What kind of residence do Answers: Apartment you live in? 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 Patient is being admitted for acute ischemic right leg w SFA oclusion, left leg ischemia, bilateral renal artery occlusions and infarcts, left atrial thrombus, AFIB, and severely impaired left ventricular systolic function. Patient drinks ETOH and smokes and is at high risk for withdrawal. No therapies ordered at this time. CAGE needed when patient is able to participate. D/C plan TBD. CM will follow. Date Signed: 11/24/2018 12:31 PM Electronically Signed By:Taty Servin LCSW
--- NOTE | 2018-11-24 12:31 | SOAPPROG ---
SOAP Progress Note Assessment/Plan: Assessment: CHF consultation performed and dictated. 38 y/o man with no previous cardiac and medical issues but regular ETOH and cocaine use came to ER yesterday with painful right leg and found to be in afib at 180bpm, CHF and clot in right leg arterial system. I reviewed his attempted transthoracic echo from yesterday and almost uninterpretable. LVEF 15-30% I think and cannot tell much else. Limited by fast afib rate and morbid obesity. Pt currently with no CP, shortness of breath at rest or perceived palpitations. REC: 1)increase Coreg to 12.5mg PO BID 2)start Aldactone 25mg PO qam. 3)rest of meds without changes. 4)consider repeat transthoracic or even do MOISES once afib rate < 100bpm next week to better asses LVEF, RVEF and valvular function. 5)high suspicion he has thrombus in heart or had thrombus in heart and would not do L/R cardiac cath this hospitalization. 6)discussed with Jonel need to stop all ETOH and cocaine use. Thanks. I will see again Tuesday and my cardiology partners will round on thru weekend. 11/24/18 12:27 Objective: Vital Signs Temp Pulse Resp BP Pulse Ox 37.1 C 106 H 28 H 116/70 95 11/24/18 09:00 11/24/18 12:00 11/24/18 12:00 11/24/18 12:00 11/24/18 12:00 Laboratory Results 11/24/18 05:20 11/24/18 05:20 11/23/18 11/24/18 11/25/18 05:59 05:59 05:59 Intake Total 3785 Output Total 850 Balance 2935 PT 18.5 SEC (12.0-15.0) H 11/23/18 17:35 INR 1.53 (0.83-1.16) H 11/23/18 17:35 ICD10 Worksheet Patient Problems: Problems Problem Status Onset Arterial embolism and thrombosis of lower extremity Acute Cardiomyopathy Acute Renal infarct Acute
[2018-11-24] MEDS: HEPARIN/DEXTROSE 500 ML IV SCH ×2 (13:05→22:40)
--- NOTE | 2018-11-24 13:37 | GCON ---
[f rep st] CONSULTATION CHF CONSULT DATE OF CONSULTATION: 11/24/2018 REASON FOR CONSULTATION: Evaluate gentleman with new acute systolic heart failure and recommend futu re CHF management. HISTORY OF PRESENT ILLNESS: I was asked by Dr. Jason Vargas to consult for the above reasons. 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 He is chronically morb idly obese and does use frequent heavy alcohol and cocaine use. He presented to the emergency room y esterday mostly for right leg pain and was found to be in atrial fibrillation at 180 beats per minute with a very limited transthoracic echo because of obesity and fast atrial fibrillation rate suggesti ng an LVEF of somewhere below 30%. He was also found to have acute clot in his right arterial leg sy stem and has had vascular surgery for that. Currently, he is resting comfortably in bed with no ches t pain or rest shortness of breath or sense of his heart beating out of sync. He still has pain in h is legs. He does not exercise much and does not feel like his heart has been beating out of sync bef ore this hospitalization. PAST MEDICAL HISTORY: 1. New onset systolic heart failure. 2. Atrial fibrillation. 3. Clot in right leg arterial system. 4. Morbid obesity. 5. Heavy alcohol and cocaine use. PAST SURGICAL HISTORY: None, except for clot removal by Vascular Surgery, yesterday, of his right le g. CURRENT MEDICATIONS: 1. Aspirin 81 mg per day. 2. Carvedilol 6.25 mg twice daily. 3. Digoxin 0.25 mg p.o. daily. 4. Diltiazem drip at 15 mg per minute. 5. Lasix 20 mg intravenous every 8 hours. 6. Heparin drip. 7. Isordil 10 mg p.o. three times daily. ALLERGIES: No known drug allergies. SOCIAL HISTORY: As per HPI. FAMILY HISTORY: Unremarkable for premature coronary disease. REVIEW OF SYSTEMS: The patient reports no recent fevers, chills or weight change in the last several months. He has had no TIA or GI bleed symptoms. The rest of 10-point review of systems is negative . PHYSICAL EXAM: VITAL SIGNS: Afebrile, pulse 120 and irregularly irregular, blood pressure 132/92, r espirations 20. GENERAL: A morbidly obese gentleman in no acute distress without chest pain or usin g accessory respiratory muscles. EYES: Pupils equal and reactive to light. ENT: Oral mucosa with no cyanosis. NECK: Jugular venous pressure difficult to assess because of his short, obese neck but probably in the 8-9 cm range. Carotid pulses 2+ bilaterally with no obvious bruits. LUNGS: Clear t o auscultation bilaterally without rales, rhonchi or wheezing. HEART: Irregularly irregular with a fast heart rate. Distant heart sounds. No obvious murmur or S3. GI: Abdominal exam is soft and no ntender. No guarding or rebound. EXTREMITIES: Has 1 to 2+ edema to mid calf. MUSCULOSKELETAL: No scoliosis. NEURO: Normal affect and mood. Neck, no nuchal rigidity. SKIN: No bleeding or cyanos is. LABS: White count 14.6, hematocrit 40, platelets 222,000, MCV 80. INR 1.53. Sodium 129, potassium 4.8, chloride 99, bicarbonate 23, BUN 21, creatinine 0.8, glucose 183. CPK 1011, troponin 0.6. NT p roBNP level 5190. IMAGING: Transthoracic echocardiogram reviewed by me. Very limited, almost not interpretable study secondary to morbid obesity and the fast atrial fibrillation rate but probably an LVEF of 20% to 30%. Cannot comment on RV function or valvular function. IMPRESSION: A 38-year-old gentleman with atrial fibrillation with rapid ventricular response and acu te systolic heart failure with a left ventricular ejection fraction probably in the 20% to 30% range and clot in his right leg arterial system. Probably, the etiology of his left ventricular dysfunctio n is tachycardia mediated from his atrial fibrillation or toxin related from alcohol and cocaine. He is mildly but not massively volume overloaded. RECOMMENDATIONS: 1. Would increase carvedilol to 12.5 mg p.o. b.i.d. 2. Would start on Aldactone 25 mg per day. 3. Rest of medications without change. 4. Once his atrial fibrillation rate is less than 110, probably next week, would try to repeat a tra nsthoracic echocardiogram, maybe with intravenous Definity or even a transesophageal echo to better d efine his LV and RV function, valvular function and if any clot in the heart. 5. Would not do a diagnostic left and right heart catheterization this hospitalization as I am perez rned the patient does have cardiac thrombus in his heart or did, which has dislodged and gone to his leg. 6. Discussed with him honestly the need to stop completely alcohol and cocaine use. Thank you for allowing me to participate in the care of Mr. Gilman. Cardiology Service will follow a long closely with you during his hospitalization and offer him followup in the [facility] ic. /[id number]/MODL
--- NOTE | 2018-11-24 14:19 | SOAPPROG ---
SOAP Progress Note Assessment/Plan: Assessment/plan: 38 y/o M with DM and hx of cocaine abuse s/p R femoral-popliteal embolectomy and thrombectomy for acute ischemic leg POD #1 R foot warm today with excellent biphasic pedal pulses on doppler. R groin dressing cdi. L foot cold and with faint pedal pulses on doppler. Repeat CTA with runoff today shows patent R SFA, but persistent occlusion in L popliteal artery and tibioperoneal trunk. This is difficult to access surgically, but may be amenable to catheter directed thrombolysis. However, with recent surgery, catheter directed thrombolysis contraindicated. Will continue heparin gtt in the hopes that his L leg arterial occlusion opens up. Bilateral renal artery occlusions. uop adequate and Cr nl. S: Reports that R leg feels markedly better from prior to surgery. Mild incisional pain. Denies outright L foot pain, but does have numbness/tingling. O: Alert Afebrile VSS, HDS Cardiac: irregularly irregular Chest: Ctab, no increased wob Abdomen: soft, nontender RLE: 3+ edema throughout, red/purple skin color change, + pedal pulses on doppler, brisk cap refill LLE: 3+ edema throughout, faint pedal pulses on doppler. Cold to palpation 11/24/18 14:09 Objective: Vital Signs Temp Pulse Resp BP Pulse Ox 37.1 C 75 24 H 110/84 H 95 11/24/18 09:00 11/24/18 13:32 11/24/18 13:32 11/24/18 13:32 11/24/18 13:32 Laboratory Results 11/24/18 05:20 11/24/18 05:20 11/23/18 11/24/18 11/25/18 05:59 05:59 05:59 Intake Total 3785 Output Total 850 Balance 2935 PT 18.5 SEC (12.0-15.0) H 11/23/18 17:35 INR 1.53 (0.83-1.16) H 11/23/18 17:35 ICD10 Worksheet Patient Problems: Problems Problem Status Onset Arterial embolism and thrombosis of lower extremity Acute Cardiomyopathy Acute Renal infarct Acute
[2018-11-24] MEDS: FUROSEMIDE 20 MG/2 ML VIAL IVP SCH (14:44)
--- NOTE | 2018-11-24 15:36 | GCON ---
[f rep st] CONSULTATION [facility] CONSULTATION DATE OF CONSULTATION: 11/24/2018 REFERRING PHYSICIAN: Mulugeta Harkins MD REASON FOR ADMISSION TO INTENSIVE CARE UNIT: Includes acute ischemic right leg with SFA occlusion, l eft leg ischemia with popliteal occlusion, bilateral renal artery occlusions and infarcts, and left a trial mural thrombus as well as atrial fibrillation. HISTORY OF PRESENT ILLNESS: I was asked to see the patient in consultation by Dr. Mulugeta Harkins. T he patient is a 38-year-old white male with an extensive past medical history including morbid obesit y and chronic leg edema. He came to the emergency room with complaints of severe pain in his right l ower extremity with evidence of numbness. He was initially seen in the emergency room, found to have significant leg ischemia. A CT angiogram was performed. He was admitted to Intensive Care Unit on a heparin drip. He subsequently underwent a right fem-pop embolectomy and thrombectomy by Dr. Elías Alanis. He has also been seen by Cardiology. In discussion with the patient, he states with the ex ception of some pain, he feels quite well. He is thirsty. He denies any chest pain, pleuritic-type chest pain, or anginal equivalent. There is no cough or production of sputum. REVIEW OF SYSTEMS: A 10-point review of systems is performed and negative except for what is listed in HPI. PAST MEDICAL HISTORY: Again, significant for alcoholism, cocaine use, morbid obesity. He also has n ew-onset systolic heart failure and atrial fibrillation. PAST SURGICAL HISTORY: Again, recent clot surgery. ALLERGIES: None known to medications. CURRENT MEDICATIONS: Include Isordil, heparin, Lasix, diltiazem, digoxin, carvedilol, and aspirin. SOCIAL HISTORY: He smokes cigarettes and drinks excessive amounts of alcohol. He also uses cocaine and marijuana. He is single, without children. 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 He has sherine ed in [place] for several years, is originally from [place]. FAMILY HISTORY: Noncontributory. PHYSICAL EXAM: VITAL SIGNS: Blood pressure is 113/76, pulse is 82, respirations 24. He is afebrile . Oxygen saturation is 89% on 4 L. GENERAL: He is a morbidly obese but extremely pleasant 38-year- old white male who is resting comfortably on supplemental oxygen. HEENT: Eyes are PERRLA, EOMI. Th roat shows no erythema or tonsillar hypertrophy. NECK: Supple. There is no cervical adenopathy. H EART: Heart sounds are distant, irregular, irregular. LUNGS: Diminished breath sounds. No wheezes present. ABDOMEN: Soft, nontender. Bowel sounds are present in all 4 quadrants. EXTREMITIES: Sh ow significant lower extremity edema. LABORATORIES: White count is 14.6, hemoglobin 13, hematocrit 39, platelet count is 222. Sodium 129, potassium 4.8, chloride 99, CO2 is 23, BUN 21, creatinine 0.8, glucose is 183. IMPRESSION: 1. Morbid obesity. 2. Ischemic right leg with superficial femoral artery occlusion. 3. Status post right femoral-popliteal embolectomy and thrombectomy. 4. Atrial fibrillation. 5. Acute systolic heart failure with ejection fraction of 20% to 30%. RECOMMENDATIONS: 1. Continue heparin. 2. Adequate pain control. 3. Continue heart rate control. 4. Agree with Cardiology consultation. 5. Aggressive blood sugar control. 6. Anticipate more surgical intervention. 7. I have impressed upon the patient the need for lifestyle change including weight loss and cessati on of drug use and tobacco use. Thank you very much for allowing me to participate in the care of this interesting patient and will f alirio along with you. /[id number]/MODL
[2018-11-24] MEDS: INSULIN REGULAR HUMAN 100 UNIT in NS 100 ML IV SCH (20:46)
[2018-11-24] MEDS: fentaNYL 100 MCG/2 ML INJ IVP PRN (20:53)
--- NOTE | 2018-11-24 22:24 | SOAPPROG ---
[facility] Progress Note Assessment/Plan: Assessment: s/p thrombectomy earlier today pulses on R but not on L On heparin drip. Around 2029, increased pain. Pain continued and I was called Now, strong doppler pulse on L On R no signal PT or DP. Cannot feel me touching plantar surface of toes on R but can on L Pain over dorsum of foot Legs equally swollen Discussed with Dr. Alanis and Dr. Yang. CTA. May need re-exploration vs fasciotomy NPO Plan: 11/24/18 22:20 Objective: Vital Signs Temp Pulse Resp BP Pulse Ox 37.1 C 100 22 H 113/71 97 11/24/18 09:00 11/24/18 22:00 11/24/18 22:00 11/24/18 22:00 11/24/18 22:00 Laboratory Results 11/24/18 05:20 11/24/18 05:20 11/23/18 11/24/18 11/25/18 05:59 05:59 05:59 Intake Total 3785 2464 Output Total 850 910 Balance 2935 1554 PT 18.5 SEC (12.0-15.0) H 11/23/18 17:35 INR 1.53 (0.83-1.16) H 11/23/18 17:35 ICD10 Worksheet Patient Problems: Problems Problem Status Onset Arterial embolism and thrombosis of lower extremity Acute Cardiomyopathy Acute Renal infarct Acute
[2018-11-25] MEDS: fentaNYL 100 MCG/2 ML INJ IVP PRN (00:01)
[2018-11-25] MEDS: MELATONIN 3 MG TAB PO SCH ×2 (00:04→21:44)
[2018-11-25] MEDS: FUROSEMIDE 20 MG/2 ML VIAL IVP SCH ×4 (00:05→21:44)
[2018-11-25] MEDS: DILTIAZEM 125 MG in D5W 125 ML IV SCH (00:10)
[2018-11-25] MEDS ORDERED: ceFAZolin 2 GM/DEXTROSE 100 ML IV ONE (00:13)
[2018-11-25] MEDS ORDERED: ceFAZolin 3 GM in D5W 100 ML IV ONE (00:30)
[2018-11-25] MEDS ORDERED: PAPAVERINE HCL 60 MG/2 ML SDV ONE (00:32)
[2018-11-25] MEDS ORDERED: PROPOFOL/EMULSION 500 MG/50 ML BOTTLE IV ONE (01:15)
[2018-11-25] MEDS ORDERED: fentaNYL 250 MCG/5 ML INJ ONE (01:15)
[2018-11-25] MEDS ORDERED: KETAMINE 200 MG/20 ML VIAL ONE (01:16)
[2018-11-25] MEDS ORDERED: MIDAZOLAM 2 MG/2 ML VIAL ONE (01:50)
[2018-11-25] MEDS ORDERED: IOTHALAMATE MEG (CONRAY) 50 ML VIAL IV ONE (02:37)
--- NOTE | 2018-11-25 02:53 | PDANEPAE ---
ANE History of Present Illness 38 year old morbidly obese male admitted in CHF secondary to cardiomyopathy with thrombis in right leg for thrombectomy. ANE Past Medical History - Cardiovascular History Hx Hypertension: Yes Hx Arrhythmias: Yes Hx Chest Pain: No Hx Coronary Artery / Peripheral Vascular Disease: No Hx CHF / Valvular Disease: Yes Hx Palpitations: Yes - Pulmonary History Hx COPD: No Hx Asthma/Reactive Airway Disease: No Hx Recent Upper Respiratory Infection: No Hx Oxygen in Use at Home: No Hx Sleep Apnea: Yes Sleep Apnea Screening Result - Last Documented: Positive - Endocrine History Hx Diabetes: Yes Hypothyroid: No Hyperthyroid: No - Renal History Hx Renal Disorders: Yes - Chronic Pain History Chronic Pain: No ANE Review of Systems Review of systems is: negative Review of Systems: ANE Patient History - Allergies Allergies/Adverse Reactions: amoxicillin Allergy (Verified 11/23/18 09:51) Other-Enter Comments Penicillins Allergy (Verified 11/23/18 09:51) Other-Enter Comments - Home Medications Home Medications: Ibuprofen [Motrin (*)] 200 mg PO DAILY PRN 11/23/18 [Last Taken Unknown] Omeprazole 20 mg PO Q2D 11/23/18 [Last Taken 11/22/18] - NPO status NPO Since - Liquids (Date): 11/24/18 NPO Since - Liquids (Time): 19:00 NPO Since - Solids (Date): 11/24/18 NPO Since - Solids (Time): 18:00 - Smoking Hx Smoking Status: Current some day smoker - Alcohol Use Alcohol Use: Sober ANE Labs/Vital Signs - Labs Result Diagrams: 11/24/18 05:20 11/24/18 05:20 - Vital Signs Blood Pressure: 109/69 Heart Rate: 92 Respiratory Rate: 18 O2 Sat (%): 97 Height: 193.04 cm Weight: 192.6 kg ANE Physical Exam - Airway Neck exam: decreased ROM Mallampati Score: Class 4 Mouth exam: poor dentition - Pulmonary Pulmonary: no respiratory distress - Cardiovascular Cardiovascular: irregularly irregular - ASA Status ASA Status: IV, E ANE Anesthesia Plan Anesthesia Plan: general endotracheal anesthesia Lines/Monitors: arterial line Specialized Airway: video laryngoscope
[2018-11-25] MEDS ORDERED: THROMBIN (BOVINE) 5,000 UNIT VIAL TP ONE (03:24)
--- NOTE | 2018-11-25 03:45 | POSTOPPROG ---
Post Op Note Date of Operation: 11/25/18 Surgeon: Leanne Bynum Shale Planer Operator Helper: jim Anesthesiologist: darren Anesthesia: GET(General Endotracheal) Pre-op Diagnosis: ischemic foot Post-op Diagnosis: same Indication: 38 yo with co-morbid, lost pulse to foot, angio w flap/ Procedure: r groin exploration, thrombectomy, patch, angio Findings: multiple large thrombus Inf/Abcess present in the surg proc area at time of surgery?: No Depth: Superfical (Skin SQ) EBL: Minimal Specimen(s): none
--- NOTE | 2018-11-25 04:14 | POSTANESTH ---
Post Anesthetic Evaluation Cardiovascular Status: Similar to Pre-Op Cond Respiratory Status: Similar to Pre-op Cond. Level of Consciousness/Mental Status: Can Participate in Eval Pain Control: Adequate, Prn Tx Ordered Nausea/Vomiting Control: Adequate, Prn Tx Ordered Complications Possibly Related to Anesthesia: None Noted
[2018-11-25 04:50] LABS: PLATELET COUNT 230 10^3/uL (150-400)
--- NOTE | 2018-11-25 07:06 | GOP ---
[f rep st] OPERATIVE REPORT DATE OF OPERATION: 11/25/2018 SURGEON: Leanne Bynum MD DATA GOVERNANCE ANALYST: Jonathan Alanis MD ANESTHESIA: General. ANESTHESIOLOGIST: Dr. Kim Rico PREOPERATIVE DIAGNOSIS: Ischemic foot with occlusion of common femoral artery. POSTOPERATIVE DIAGNOSIS: 1. Ischemic foot with occlusion of common femoral artery. 2. Thrombus at common femoral artery, profunda and superficial femoral artery. PROCEDURE PERFORMED: Thrombectomy R common femoral artery, R profunda and R SFA and angiogram and patch angioplasy FINDINGS: Large amounts of thrombus in SIGNAL TOWER DIRECTOR, Profunda and SFA. Completion angiogram with adequate flow to foot SPECIMENS: None. ESTIMATED BLOOD LOSS: 750 cc. INDICATIONS: The patient is a 38-year-old man with multiple medical problems. He has recently undergone thrombectomy in his right groin. He developed abrupt onset of pain. I was called to evaluate him after pulses were not able to be detected. He had loss of sensation over the plantar service of his toes and I could not Doppler pulses. CTA was performed which showed occlusion at the common femoral artery, possibly due to a flap. DESCRIPTION OF PROCEDURE: Patient was brought into the operating room, placed supine on the table, and general anesthesia was administered. He was continued on his Heparin drip. His abdomen and right leg were prepped circumferentially. Drapes were placed. I removed the previous angie. I dissected down through the skin and subcutaneous tissues. I removed the old Vicryl suture and then was able to expose the common femoral artery. I used vessel loops to control the common femoral artery, profunda, and superficial femoral artery. A bolus of Heparin was administered. I then removed the Prolene suture from the common femoral artery. There was very little blood flow at this site, and clot was removed. I then used a 4 Patel and removed clot from the profunda artery. After several passes, this was clear. Next, I moved to the superficial femoral artery. The clot was removed. The blood flow was very dark and was not brisk. I then continued on to perform a similar procedure in the common femoral artery proximally. Again, clot was removed. Attention was then drawn back to the superficial femoral artery and the Patel was passed again. At this point, there was good flow. Each of the arteries was flushed. I then performed an angiogram and there was excellent flow down his leg. I elected to close the artery with a patch, and 6.0 HS Hemashield was cut to size and sutured into place. A tacking suture was required. Hemostasis was achieved. Vessel loops were removed. 5000 units of thrombin was placed in the wound. I closed the adipose tissue and superficial fascia in multiple layers with 2-0 Vicryl. I closed the skin with angie, ABD, and Tegaderm was applied. He was awakened in the operating room, extubated, transferred to PACU in stable condition. /[id number]/MODL MTDD
[2018-11-25] MEDS: ASPIRIN EC 81 MG TAB PO SCH (08:27)
[2018-11-25] MEDS: ISOSORBIDE DINITRATE 10 MG TAB PO SCH ×3 (08:27→14:05)
[2018-11-25] MEDS: CARVEDILOL 6.25 MG TAB PO SCH (08:27)
[2018-11-25] MEDS: THIAMINE HCL 100 MG TAB PO SCH (08:28)
[2018-11-25] MEDS: DILTIAZEM HCL/D5W 125 ML IV SCH ×2 (08:28→23:59)
[2018-11-25] MEDS: hydrALAZINE 10 MG TAB PO SCH ×3 (08:28→21:44)
[2018-11-25] MEDS: PANTOPRAZOLE SODIUM 40 MG TAB PO SCH (08:28)
--- NOTE | 2018-11-25 08:31 | PDINTPN ---
[facility] Progress Note Assessment/Plan: Assessment: * Extensive arterial clot -continue heparin * Status post fem-pop embolectomy in thrombectomy * Renal artery embolism * Left atrial thrombus * Morbid obesity * Atrial fibrillation-rate controlled * Cardiomyopathy-new. Ejection fraction of 20 - 30%. * Polysubstance abuse * Alcoholism * Pain-well controlled -continue pain meds * Diabetes- -continue on insulin drip * Likely pulmonary hypertension-unable to assess from echo secondary to body habitus * Probable obstructive sleep apnea-will need outpatient sleep study * Probable obesity hypoventilation syndrome Subjective: Resting comfortably. Pain well controlled. Objective: Vital Signs Temp Pulse Resp BP Pulse Ox 36.5 C 79 17 129/80 H 100 11/25/18 04:00 11/25/18 07:00 11/25/18 07:00 11/25/18 07:00 11/25/18 07:00 Laboratory Results 11/25/18 04:30 11/25/18 04:30 11/24/18 11/25/18 11/26/18 05:59 05:59 05:59 Intake Total 3785 4589 Output Total 850 1160 Balance 2935 3429 PT 18.5 SEC (12.0-15.0) H 11/23/18 17:35 INR 1.53 (0.83-1.16) H 11/23/18 17:35 - Time Spent With Patient Time Spent With Patient: 35 min of time spent with patient, over 1/2 involved with coordination of care or counseling. Case discussed with nursing Physical Exam - Physical Exam General Appearance: alert, no apparent distress EENT: PERRL/EOMI Neck: non-tender Respiratory: chest non-tender, No normal breath sounds (Distant) Cardiac/Chest: normal peripheral pulses, regular rate, rhythm, other (Distant heart sounds) Peripheral Pulses: 1+: dorsalis-pedis (R), dorsalis-pedis (L) Abdomen: normal bowel sounds, non-tender, soft Male Genitalia: deferred Rectal: deferred Skin: normal color, warm/dry Extremities: non-tender Neuro/Psych: no motor/sensory deficits, alert, normal mood/affect, oriented x 3 ICD10 Worksheet Patient Problems: Problems Problem Status Onset Arterial embolism and thrombosis of lower extremity Acute Cardiomyopathy Acute Renal infarct Acute
[2018-11-25] MEDS: HEPARIN/DEXTROSE 500 ML IV SCH ×2 (09:00→19:03)
[2018-11-25] MEDS: NS 1,000 ML IV SCH (09:09)
[2018-11-25] MEDS ORDERED: DIGOXIN 250 MCG TAB PO SCH (10:00)
[2018-11-25] MEDS: DIGOXIN 50 MCG/ML UDSYR PO SCH (11:28)
[2018-11-25] MEDS: DIGOXIN 250 MCG TAB PO SCH (11:31)
[2018-11-25] MEDS ORDERED: PROTOCOL POTASSIUM 1 DOSE MISC PRN ×2 (12:48→23:40)
--- NOTE | 2018-11-25 12:54 | PDCARPN ---
Cardiology Progress Note Assessment/Plan: Assessment/plan: 38-year-old male with morbid obesity, cocaine and alcohol abuse admitted 11/23 with ischemic right lower extremity. Was found to have embolism to right femoral artery requiring surgical embolectomy/thrombectomy. He required reoperation early in the morning of 2 9 in the same right femoral region, concerning for recurrent embolism. Also has renal infarcts. On admission was in rapid atrial fibrillation and on echo has ejection fraction of 10-20%. On CT scan he has left atrial appendage thrombus which is the presumed nidus of his embolic events. Also diagnosed with diabetes here complicated by hyponatremia. 1. Systemic embolization to renals and right femoral artery. He is on intravenous heparin. Will plan for MOISES with anesthesia support tomorrow to reassess left atrial appendage and also left ventricular function and evaluate for presence of ventricular thrombus. He remains at very high risk for stroke. This was discussed with him. 2. New diagnosis of cardiomyopathy and systolic heart failure: Likely multifactorial related to rapid atrial fibrillation, cocaine, alcohol. Coronary disease has not been completely ruled out but at this point he does not require coronary angiography. Could consider once he is more stable. Has been seen by Dr. Corona of the heart failure service. We will increase Coreg and add Aldactone. Continue IV Lasix. He is on hydralazine and isosorbide for afterload reduction. Hold off on YESENIA-inhibitor/angiotensin receptor sasha given his renal infarct. 3. Atrial fibrillation: On digoxin and Coreg. No cardioversion at this time given his recent embolism and no left atrial appendage thrombus. MOISES as above. 4. Diabetes: On an insulin drip. Will need to transition to long-acting insulin. 5. Hyponatremia: Likely volume overload and hyperglycemia. 6. Likely sleep apnea/obesity hypoventilation will need ongoing outpatient follow-up. 7. Alcohol and cocaine abuse: He needs to remain abstinent. 11/25/18 13:06 11/25/18 13:07 Subjective: Right leg pain is improving. He denies chest pain or dyspnea. Reviewed/Discussed With: other (Dr. Morales and Dr. Villa. ) Objective: Vital Signs (8 Hrs) Pulse Resp BP Pulse Ox 11/25/18 12:00 88 21 H 129/77 H 92 11/25/18 11:31 81 113/80 11/25/18 11:00 81 25 H 113/80 93 11/25/18 09:00 79 17 116/66 99 11/25/18 08:28 76 129/80 H 11/25/18 08:27 71 129/80 H 11/25/18 07:00 79 17 129/80 H 100 11/25/18 06:00 75 18 119/65 100 11/25/18 05:00 69 16 124/75 H 100 Intake/Output (24 Hrs) 11/24/18 11/25/18 11/26/18 05:59 05:59 05:59 Intake Total 3785 4589 Output Total 850 1160 Balance 2935 3429 Intake: Oral (ml) 1000 800 IV Intake (ml) 600 IV Infused (ml) 2185 3789 D5w 1,000 ml @ 25 mls/hr 310 475 IV CONT HARRIS Rx#: [id number] Diltiazem 125 mg In D5w 243 297 125 ml @ Per Protocol IV CONT HARRIS Rx#:[id number] Heparin/Dextrose 500 ml @ 609 1250 Per Protocol IV CONT HARRIS Rx#:[id number] Insulin Regular Human 100 43 73 unit In Ns 100 ml @ As Directed IV AD HARRIS Rx#: [id number] Ns 1,000 ml @ 75 mls/hr 980 1694 IV CONT HARRIS Rx#: [id number] Output: Urine (ml) 850 1160 Catheter 850 1160 Other: Weight 158.757 kg 200 kg Intake Quantity Yes Sufficient No acute distress. JVP not able to be assessed. Irregular rate and rhythm. No obvious murmurs Lungs clear anteriorly and laterally Bilateral lower extremities have diffuse stigmata of chronic venous insufficiency. DP pulses are present by Doppler. 1+ pitting edema to the midshin bilaterally. Result Diagrams: 11/25/18 04:30 11/25/18 04:30 Cardiac Labs: Cardiac Lab Results (72 Hrs) 11/24/18 11/23/18 05:20 18:35 CK-MB (CK-2) Fraction 7.22 H 9.67 H Troponin I 0.577 H 0.548 H Telemetry: AFib with mostly controlled ventricular response Echocardiogram: Reviewed: Very limited study. Ejection fraction is 10-20%. ICD10 Worksheet Patient Problems: Problems Problem Status Onset Cardiomyopathy Acute Arterial embolism and thrombosis of lower extremity Acute Renal infarct Acute
[2018-11-25] MEDS: SPIRONOLACTONE 25 MG TAB PO SCH (13:03)
--- NOTE | 2018-11-25 13:07 | SOAPPROG ---
ISATU Progress Note Assessment/Plan: Assessment: 38yo M c multiple medical issues s/p RLE thrombectomy x2 - his leg is warm, he has good distal signals and only has some pain in his ankle with movement. Last check he was supratherapeutic on his heparin - R groin is flat and looks good - likely still has residual clot in LAE which is likely source of emboli. Its a miracle he hasnt showered any of this to his head yet - bedrest, cont therapeutic heparin. - I feel there is a high likelihood he will throw more emboli within the next 48hrs. - low suspicion for compartment syndrome currently, will follow Plan: 11/25/18 13:04 Subjective: pain is much better Objective: Vital Signs Temp Pulse Resp BP Pulse Ox 36.5 C 89 22 H 115/58 L 95 11/25/18 04:00 11/25/18 13:00 11/25/18 13:00 11/25/18 13:00 11/25/18 13:00 Laboratory Results 11/25/18 04:30 11/25/18 04:30 11/24/18 11/25/18 11/26/18 05:59 05:59 05:59 Intake Total 3785 4589 Output Total 850 1160 Balance 2935 3429 PT 18.5 SEC (12.0-15.0) H 11/23/18 17:35 INR 1.53 (0.83-1.16) H 11/23/18 17:35 ICD10 Worksheet Patient Problems: Problems Problem Status Onset Arterial embolism and thrombosis of lower extremity Acute Cardiomyopathy Acute Renal infarct Acute
--- NOTE | 2018-11-25 14:21 | HOSPPROG ---
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 He is found to have new onset severe cardiomyopathy systolic dysfunction, new onset AFib with a large left atrial thrombus, and multiple emboli due to this leading to his presentation here. # systolic cardiomyopathy unclear etiology. EF 5% but poor visualization due to patient obesity. Possibly related to drug use or postviral cardiomyopathy. * Appreciate Cardiology, repeat MOISES once patient is stable * Medical management until patient more stable and could consider angiogram at that time * On Coreg, Aldactone, IV Lasix, isosorbide and hydralazine # left atrial thrombus with multiple emboli including left distal leg ischemia , bilateral renal artery occlusions. Currently on heparin # acute ischemic right leg with SFA occlusion, status post thrombectomy in [place] per Dr. 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 # atrial fibrillation with rapid ventricular rate currently on anticoagulation and rate controlled with Dig and Coreg, diltiazem drip has been turned off. * High risk for stroke or other emboli. # diabetes with poor control. Currently on insulin drip at a rate of 1.8 units /hour. * Add Lantus 18 units daily and sliding scale insulin * DC insulin drip after 4 hr and adjust Lantus. # polysubstance abuse with alcohol and cocaine. Watch for withdrawal symptoms. Subjective: Patient new to me, chart reviewed and discussed in multidisciplinary rounds. Complains of some pain in his right leg otherwise relatively comfortable. Objective: Vital Signs Temp Pulse Resp BP Pulse Ox 36.5 C 98 21 H 111/64 94 11/25/18 04:00 11/25/18 14:00 11/25/18 14:00 11/25/18 14:05 11/25/18 14:00 Laboratory Results 11/25/18 04:30 11/25/18 04:30 11/24/18 11/25/18 11/26/18 05:59 05:59 05:59 Intake Total 3785 4589 Output Total 850 1160 1500 Balance 2935 3429 -1500 PT 18.5 SEC (12.0-15.0) H 11/23/18 17:35 INR 1.53 (0.83-1.16) H 11/23/18 17:35 - Physical Exam Constitutional: obese, uncomfortable Eyes: PERRL Ears, Nose, Mouth, Throat: moist mucous membranes Cardiovascular: irregularly irregular, pulses symmetric bilaterally (By Doppler) Respiratory: no respiratory distress, clear to auscultation Gastrointestinal: no palpable masses Genitourinary: No chavez in urethra Skin: normal color Musculoskeletal: generalized weakness Neurologic: AAOx3 Psychiatric: interacting appropriately ICD10 Worksheet Patient Problems: Problems Problem Status Onset Cardiomyopathy Acute Arterial embolism and thrombosis of lower extremity Acute Renal infarct Acute
[2018-11-25] MEDS: INSULIN GLARGINE 100 UNITS/ML UNIT SC SCH (15:17)
[2018-11-25] MEDS: CARVEDILOL 25 MG TAB PO SCH (18:03)
[2018-11-25] MEDS: INSULIN LISPRO 100 UNIT/ML SC SCH (18:04)
[2018-11-26] MEDS: fentaNYL 100 MCG/2 ML INJ IVP PRN ×5 (02:22→20:38)
[2018-11-26] MEDS: HEPARIN/DEXTROSE 500 ML IV SCH ×3 (04:40→20:49)
[2018-11-26] MEDS ORDERED: HYDROmorphONE/DILAUDID 1 MG/ML INJ IVP ONE (04:47)
[2018-11-26 05:03] LABS: PLATELET COUNT 243 10^3/uL (150-400)
[2018-11-26] MEDS ORDERED: NS 1,000 ML IV ONE (06:00)
[2018-11-26] MEDS: FUROSEMIDE 20 MG/2 ML VIAL IVP SCH ×3 (06:10→20:22)
[2018-11-26] MEDS: HEPARIN 10,000 UNIT/10 ML MDV (1,000 UNIT/ML) IVP PRN (06:24)
[2018-11-26] MEDS: ASPIRIN EC 81 MG TAB PO SCH (08:55)
[2018-11-26] MEDS: SPIRONOLACTONE 25 MG TAB PO SCH (08:55)
[2018-11-26] MEDS: THIAMINE HCL 100 MG TAB PO SCH (08:55)
[2018-11-26] MEDS: CARVEDILOL 25 MG TAB PO SCH ×2 (08:56→17:33)
[2018-11-26] MEDS: ISOSORBIDE DINITRATE 10 MG TAB PO SCH ×3 (08:56→16:17)
[2018-11-26] MEDS: PANTOPRAZOLE SODIUM 40 MG TAB PO SCH (08:56)
[2018-11-26] MEDS: hydrALAZINE 10 MG TAB PO SCH ×3 (08:57→20:22)
[2018-11-26] MEDS: DIGOXIN 250 MCG TAB PO SCH (08:57)
--- NOTE | 2018-11-26 09:09 | PDINTPN ---
Distilling Department Supervisor Progress Note Assessment/Plan: Assessment: * Extensive arterial clot -continue heparin * Status post fem-pop embolectomy in thrombectomy * Renal artery embolism * Left atrial thrombus * Morbid obesity * Atrial fibrillation-rate controlled * Cardiomyopathy-new. Ejection fraction of 20 - 30%. * Polysubstance abuse * Alcoholism * Pain-well controlled -continue pain meds * Diabetes- -continue on insulin drip * Likely pulmonary hypertension-unable to assess from echo secondary to body habitus * Probable obstructive sleep apnea-will need outpatient sleep study * Probable obesity hypoventilation syndrome * Disposition-question Subjective: Resting comfortably. Feels better. Better energy. Denies any cough or production of sputum for denies chest pain Objective: Vital Signs Temp Pulse Resp BP Pulse Ox 36.7 C 91 23 H 120/80 95 11/26/18 06:00 11/26/18 08:57 11/26/18 07:00 11/26/18 08:57 11/26/18 07:00 Laboratory Results 11/26/18 04:55 11/26/18 04:55 11/25/18 11/26/18 11/27/18 05:59 05:59 05:59 Intake Total 4589 2533.0 Output Total 1160 5150 Balance 3429 -2617.0 PT 18.5 SEC (12.0-15.0) H 11/23/18 17:35 INR 1.53 (0.83-1.16) H 11/23/18 17:35 - Time Spent With Patient Time Spent With Patient: 35 min of time spent with patient, over 1/2 involved coordination of care or counseling. Case discussed with nursing Physical Exam - Physical Exam General Appearance: alert, no apparent distress, obese EENT: PERRL/EOMI Neck: non-tender, supple Respiratory: crackles (Few basilar), other (Distant breath sounds), No respiratory distress, No wheezing Cardiac/Chest: normal peripheral pulses, regular rate, rhythm, other (Distant heart sounds) Abdomen: normal bowel sounds, non-tender, soft Male Genitalia: deferred Rectal: deferred Skin: normal color, warm/dry Extremities: non-tender Neuro/Psych: no motor/sensory deficits, alert, normal mood/affect, oriented x 3 ICD10 Worksheet Patient Problems: Problems Problem Status Onset Arterial embolism and thrombosis of lower extremity Acute Cardiomyopathy Acute Renal infarct Acute
[2018-11-26] MEDS: INSULIN LISPRO 100 UNIT/ML SC SCH ×3 (09:50→17:33)
[2018-11-26] MEDS: INSULIN GLARGINE 100 UNITS/ML UNIT SC SCH (09:51)
[2018-11-26] MEDS ORDERED: PROPOFOL/EMULSION 500 MG/50 ML BOTTLE IV ONE (09:52)
[2018-11-26] MEDS ORDERED: fentaNYL 100 MCG/2 ML INJ ONE (09:54)
--- NOTE | 2018-11-26 10:14 | PDANEPAE ---
ANE History of Present Illness Patient known to me from thrombectomy surgery 2 days ago. CHF with low EF for MOISES. Morbidly obese. ANE Past Medical History - Cardiovascular History Hx Hypertension: Yes Hx Arrhythmias: Yes Hx Chest Pain: No Hx Coronary Artery / Peripheral Vascular Disease: No Hx CHF / Valvular Disease: Yes Hx Palpitations: Yes - Pulmonary History Hx COPD: No Hx Asthma/Reactive Airway Disease: No Hx Recent Upper Respiratory Infection: No Hx Oxygen in Use at Home: No Hx Sleep Apnea: Yes Sleep Apnea Screening Result - Last Documented: Positive - Endocrine History Hx Diabetes: Yes Hypothyroid: No Hyperthyroid: No - Renal History Hx Renal Disorders: Yes - Chronic Pain History Chronic Pain: No ANE Review of Systems Review of systems is: negative Review of Systems: ANE Patient History - Allergies Allergies/Adverse Reactions: amoxicillin Allergy (Verified 11/23/18 09:51) Other-Enter Comments Penicillins Allergy (Verified 11/23/18 09:51) Other-Enter Comments - Home Medications Home Medications: Ibuprofen [Motrin (*)] 200 mg PO DAILY PRN 11/23/18 [Last Taken Unknown] Omeprazole 20 mg PO Q2D 11/23/18 [Last Taken 11/22/18] - NPO status NPO Since - Liquids (Date): 11/24/18 NPO Since - Liquids (Time): 19:00 NPO Since - Solids (Date): 11/24/18 NPO Since - Solids (Time): 18:00 - Smoking Hx Smoking Status: Current some day smoker - Alcohol Use Alcohol Use: Sober ANE Labs/Vital Signs - Labs Result Diagrams: 11/26/18 04:55 11/26/18 04:55 - Vital Signs Blood Pressure: 119/69 Heart Rate: 82 Respiratory Rate: 13 O2 Sat (%): 93 Height: 193.04 cm Weight: 198.2 kg ANE Physical Exam - Airway Neck exam: FROM Mallampati Score: Class 4 Mouth exam: normal dental/mouth exam - Pulmonary Pulmonary: no respiratory distress - Cardiovascular Cardiovascular: irregularly irregular - ASA Status ASA Status: IV, E ANE Anesthesia Plan Anesthesia Plan: MAC
--- NOTE | 2018-11-26 10:24 | PDHPUP ---
History & Physical Update H&P update statement: This history and physical update is based on an assessment of the patient which was completed after admission or registration (within 24 hours), but prior to the surgery/procedure. H&P update: H&P reviewed & patient examined, no change in patient's condition since H&P completed
--- NOTE | 2018-11-26 10:44 | SOAPPROG ---
SOAP Progress Note Assessment/Plan: Assessment: 38yo M c multiple medical issues s/p RLE thrombectomy x2 - RLE remains warm, has biphasic signals - subtherapeutic on hep gtt this AM, received bolus - MOISES today - no new recs, will need to decide on LT anticoag if he stabilizes Plan: 11/25/18 13:04 11/26/18 10:42 Subjective: L flank pain, improved Objective: Vital Signs Temp Pulse Resp BP Pulse Ox 37.1 C 82 13 119/69 93 11/26/18 08:00 11/26/18 10:13 11/26/18 10:13 11/26/18 10:13 11/26/18 10:13 Laboratory Results 11/26/18 04:55 11/26/18 04:55 11/25/18 11/26/18 11/27/18 05:59 05:59 05:59 Intake Total 4589 2533.0 Output Total 1160 5150 Balance 3429 -2617.0 PT 18.5 SEC (12.0-15.0) H 11/23/18 17:35 INR 1.53 (0.83-1.16) H 11/23/18 17:35 ICD10 Worksheet Patient Problems: Problems Problem Status Onset Arterial embolism and thrombosis of lower extremity Acute Cardiomyopathy Acute Renal infarct Acute
--- NOTE | 2018-11-26 11:07 | HOSPPROG ---
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 He is found to have new onset severe cardiomyopathy systolic dysfunction, new onset AFib with a large left atrial thrombus, and multiple emboli due to this leading to his presentation here. # systolic cardiomyopathy unclear etiology. EF low but poor visualization due to patient obesity. Possibly related to drug use or postviral cardiomyopathy. * Appreciate Cardiology, repeat MOISES today to better visualize atrial clot * Medical management until patient more stable and could consider angiogram at that time * On Coreg, Aldactone, IV Lasix, isosorbide and hydralazine # left atrial thrombus with multiple emboli including left distal leg ischemia , bilateral renal artery occlusions. Currently on heparin * Complained of increased flank pain last night which has since resolved. Unfortunately could be another thrombus however no change in therapy at this time would be done # acute ischemic right leg with SFA occlusion, status post thrombectomy in [place] per Dr. 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 * Continue to monitor renal function # atrial fibrillation with rapid ventricular rate currently on anticoagulation and rate controlled with Dig and Coreg, diltiazem drip has been turned off. * High risk for stroke or other emboli. # diabetes with poor control. Currently on insulin drip at a rate of 1.8 units /hour. * Add Lantus 18 units daily and sliding scale insulin * DC insulin drip after 4 hr and adjust Lantus. # polysubstance abuse with alcohol and cocaine. Watch for withdrawal symptoms. Subjective: Discussed in multidisciplinary rounds as well as Cardiology. Relatively comfortable currently without new complaints Objective: Vital Signs Temp Pulse Resp BP Pulse Ox 37 C 87 22 H 110/57 L 94 11/26/18 11:00 11/26/18 11:00 11/26/18 11:00 11/26/18 11:00 11/26/18 11:00 Laboratory Results 11/26/18 04:55 11/26/18 04:55 11/25/18 11/26/18 11/27/18 05:59 05:59 05:59 Intake Total 4589 2533.0 104 Output Total 1160 5150 Balance 3429 -2617.0 104 PT 18.5 SEC (12.0-15.0) H 11/23/18 17:35 INR 1.53 (0.83-1.16) H 11/23/18 17:35 - Physical Exam Constitutional: obese Eyes: PERRL Ears, Nose, Mouth, Throat: moist mucous membranes Cardiovascular: irregularly irregular, edema Respiratory: no respiratory distress, clear to auscultation Gastrointestinal: normoactive bowel sounds, distension (Mild) Genitourinary: chavez in urethra Skin: warm, other (Erythema lower extremities) Musculoskeletal: generalized weakness Neurologic: AAOx3 Psychiatric: interacting appropriately ICD10 Worksheet Patient Problems: Problems Problem Status Onset Cardiomyopathy Acute Arterial embolism and thrombosis of lower extremity Acute Renal infarct Acute
--- NOTE | 2018-11-26 12:43 | ASMTCMCOM ---
CM Note CM Note Notes: 11/26/2018 Case Management Note Discussed pt during rounds today. MOISES planned for today. There are no therapy evals ordered as of today. Pt will need outpatient sleep study after discharge. Case Management d/c poc: remains to be determined. Case Management to follow. 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 Patient is being admitted for acute ischemic right leg w SFA oclusion, left leg ischemia, bilateral renal artery occlusions and infarcts, left atrial thrombus, AFIB, and severely impaired left ventricular systolic function. Patient drinks ETOH and smokes and is at high risk for withdrawal. No therapies ordered at this time. CAGE needed when patient is able to participate. D/C plan TBD. CM will follow. Date Signed: 11/26/2018 12:42 PM Electronically Signed By:Lelo Newman RN
--- NOTE | 2018-11-26 13:28 | PDCARPN ---
Cardiology Progress Note Assessment/Plan: Assessment/plan: 38-year-old male with morbid obesity, cocaine and alcohol abuse admitted 11/23 with ischemic right lower extremity. Was found to have embolism to right femoral artery requiring surgical embolectomy/thrombectomy. He required reoperation early in the morning of in the same right femoral region, concerning for recurrent embolism. Also has renal infarcts. On admission was in rapid atrial fibrillation and on echo has ejection fraction of 10-20%. On CT scan he has left atrial appendage thrombus which is the presumed nidus of his embolic events. Also diagnosed with diabetes here complicated by hyponatremia. 1. Systemic embolization to renals and right femoral artery. He is on intravenous heparin. MOISES on November 26 confirms large mobile left atrial appendage thrombus. No thrombus in the remainder of the left atrium or in the left ventricle. Ejection fraction approximately 20%. He is not a candidate for cardiac surgery to remove the thrombus. 2. New diagnosis of cardiomyopathy and systolic heart failure: Likely multifactorial related to rapid atrial fibrillation, cocaine, alcohol. Coronary disease has not been completely ruled out but at this point he does not require coronary angiography. Could consider once he is more stable. Has been seen by Dr. Corona of the heart failure service. Continue Coreg, Aldactone , isosorbide, hydralazine. Continue IV Lasix. Hold off on YESENIA-inhibitor/ angiotensin receptor sasha given his renal infarct. 3. Atrial fibrillation: On digoxin and Coreg. Continue IV heparin. Also on aspirin. Avoid diltiazem given his reduced ejection fraction. No cardioversion at this time given his recent embolism and left atrial appendage thrombus. 4. Diabetes: On an insulin drip. Will need to transition to long-acting insulin. Defer to Hospital Medicine. 5. Hyponatremia: Likely volume overload and hyperglycemia. 6. Likely sleep apnea/obesity hypoventilation will need ongoing outpatient follow-up. 7. Alcohol and cocaine abuse: He needs to remain abstinent. Prognosis remains guarded given his left atrial appendage thrombus and recent embolic events. 11/26/18 13:26 Subjective: Denies chest pain or dyspnea. Had some flank pain last night which has resolved. No further leg discomfort. He denies neurological symptoms. Reviewed/Discussed With: hospitalist, multidisciplinary team, other (Dr. Morales. Dr. Desai) Objective: Vital Signs (8 Hrs) Temp Pulse Resp BP Pulse Ox 11/26/18 12:00 37 C 85 17 112/62 96 11/26/18 11:56 115/65 11/26/18 11:00 37 C 87 22 H 110/57 L 94 11/26/18 10:52 100 113/63 11/26/18 10:13 82 13 119/69 93 11/26/18 10:00 88 87/69 L 11/26/18 09:00 82 13 119/69 93 11/26/18 08:57 91 120/80 11/26/18 08:56 91 120/80 11/26/18 08:00 37.1 C 95 23 H 119/69 93 11/26/18 07:00 90 23 H 125/74 H 95 11/26/18 06:00 36.7 C 79 22 H 109/74 95 Intake/Output (24 Hrs) 11/25/18 11/26/18 11/27/18 05:59 05:59 05:59 Intake Total 4589 2533.0 604 Output Total 1160 5150 Balance 3429 -2617.0 604 Intake: Oral (ml) 800 400 500 IV Infused (ml) 3789 2133.0 104 D5w 1,000 ml @ 25 mls/hr 475 0 IV CONT HARRIS Rx#: [id number] Diltiazem 125 mg In D5w 297 254.4 125 ml @ Per Protocol IV CONT HARRIS Rx#:[id number] Diltiazem HCl/D5w 125 ml 77 @ Per Protocol IV CONT HARRIS Rx#:[id number] Heparin/Dextrose 500 ml @ 1250 1203 Per Protocol IV CONT HARRIS Rx#:[id number] Insulin Regular Human 100 73 34.6 unit In Ns 100 ml @ As Directed IV AD HARRIS Rx#: [id number] Ns 1,000 ml @ 75 mls/hr 1694 641 IV CONT HARRIS Rx#: [id number] Ns 1,000 ml @ TKO IV 27 ONCALL ONE Rx#:[id number] Output: Urine (ml) 1160 5150 Catheter 1160 5150 Other: Weight 200 kg 198.2 kg Number of Stools Incontinence 1 No acute distress. Irregularly irregular rhythm without murmur. Lungs clear anteriorly and laterally. Stable findings both lower extremities of chronic venous stasis, 1+ pitting edema to mid french, warm feet. Dopplerable distal pulses. Result Diagrams: 11/26/18 04:55 11/26/18 04:55 Cardiac Labs: Cardiac Lab Results (72 Hrs) 11/24/18 11/23/18 05:20 18:35 CK-MB (CK-2) Fraction 7.22 H 9.67 H Troponin I 0.577 H 0.548 H Telemetry: AFib with mostly controlled ventricular response Echocardiogram: MOISES performed today: Ejection fraction 20%. Large mobile left atrial appendage thrombus. There is no thrombus in the left atrium or in the left ventricle. ICD10 Worksheet Patient Problems: Problems Problem Status Onset Cardiomyopathy Acute Arterial embolism and thrombosis of lower extremity Acute Renal infarct Acute
--- NOTE | 2018-11-26 13:42 | ECHO ---
[email or web address] [place] [id number] Main: [phone] Fax: Transesophageal Echocardiography Name: ESSENCE CORDON MR#: [id number] Study Date: 11/26/2018 Study Time: 10:26 AM Date of : 1980 Age: 38 year(s) Height: 193 cm (76 in.) Weight: 199.58 kg (440 lb.) BSA: 3.1 m2 Gender: Male Examination: MOISES Indication: hx systemic emboli/DIANA clot seen on chest CT Image Quality: Contrast: Requested by: Renetta Schneider Heart Rate: Rhythm: BP: 104 mmHg/58 mmHg Procedure Staff Department Chair: Aura hCin RDCS Reading Physician: Renetta Schneider MD Requesting Provider: MOISES Exam Details Conclusions: Severely reduced systolic LV function. The ejection fraction is estimated to be 20-25 %. No thrombus in left ventricle. Severe global hypokinesis. Aneurysmal interatrial septum with small PFO demonstrated with injection of agitated saline. . Mobile left atrial appendage thrombus measuring approximately 1.26cm X 1.63cm.. Mild to moderate mitral regurgitation. There is no aortic valve regurgitation. No aortic valve stenosis is present. Mild tricuspid regurgitation is present. The pulmonic valve is normal in appearance. The aorta is normal. Measurements: Chambers Valvular Assessment AV/MV Valvular Assessment TV/PV Normal Normal Normal Name Value Range Name Value Range Name Value Range EF Range: 20-25 % AV Vmax: 1.34 m/s (1 m/s-1.7 m/s) AV meanP mmHg ( - ) Additional Measurements: Patient: ESSENCE CORDON Study Date: 11/26/2018 Page 1 of 2 10:26 AM Findings: Left Ventricle: Severely reduced systolic LV function. The ejection fraction is estimated to be 20-25 %. No thrombus in left ventricle. Severe global hypokinesis. Left Atrium: Aneurysmal interatrial septum with small PFO demonstrated with injection of agitated saline. . Left Atrial Appendage: Mobile left atrial appendage thrombus measuring approximately 1.26cm X 1.63cm.. Mitral Valve: The mitral valve is normal in appearance. Mild to moderate mitral regurgitation. Aortic Valve: The aortic valve is tri-leaflet. There is no aortic valve regurgitation. No aortic valve stenosis is present. Tricuspid Valve: The tricuspid valve appears normal. Mild tricuspid regurgitation is present. Pulmonic Valve: The pulmonic valve is normal in appearance. Aorta: The aorta is normal. l1n (No Signature Object) Patient: ESSENCE CORDON Study Date: 11/26/2018 Page 2 of 2 10:26 AM [id number]
[2018-11-26] MEDS: MELATONIN 3 MG TAB PO SCH (20:22)
[2018-11-27] MEDS: FUROSEMIDE 20 MG/2 ML VIAL IVP SCH ×3 (05:54→21:04)
[2018-11-27] MEDS: fentaNYL 100 MCG/2 ML INJ IVP PRN ×5 (07:30→21:12)
[2018-11-27] MEDS: INSULIN LISPRO 100 UNIT/ML SC SCH ×3 (07:49→17:51)
[2018-11-27] MEDS: INSULIN GLARGINE 100 UNITS/ML UNIT SC SCH (07:50)
[2018-11-27] MEDS ORDERED: POTASSIUM CL 10 MEQ TAB PO ONE ×2 (07:52→20:44)
--- NOTE | 2018-11-27 09:09 | SOAPPROG ---
SOAP Progress Note Assessment/Plan: Assessment/plan: 38 y/o M with DM and hx of cocaine abuse s/p R femoral-popliteal embolectomy and thrombectomy for acute ischemic leg x2 Large L atrium clot. A-fib. Not a candidate for cardioversion. Appreciate cardiology input. Bilateral lower extremity arterial occlusions. Both feet warm on exam today. Excellent pedal pulses on doppler Bilateral renal occlusions. uop adequate and Cr nl. Persistent L flank pain. Continue heparin gtt. Heparin subtherapeutic today. Got bolus this am. Continue bedrest. Avoid bending at hips S: Biggest complaint is L flank pain. Denies lower extremity pain. O: Alert Afebrile VSS, HDS Cardiac: irregularly irregular Chest: Ctab, no increased wob Abdomen: soft, nontender Left flank tenderness Bilateral lower extremities: 3+ edema throughout, red/purple skin color change, + pedal pulses on doppler, brisk cap refill 11/27/18 09:04 Objective: Vital Signs Temp Pulse Resp BP Pulse Ox 36.9 C 99 21 H 112/78 99 11/27/18 06:00 11/27/18 06:00 11/27/18 06:00 11/27/18 06:00 11/27/18 06:00 Laboratory Results 11/26/18 04:55 11/26/18 11/27/18 11/28/18 05:59 05:59 05:59 Intake Total 2533.0 3687 Output Total 5150 3500 Balance -2617.0 187 PT 18.5 SEC (12.0-15.0) H 11/23/18 17:35 INR 1.53 (0.83-1.16) H 11/23/18 17:35 ICD10 Worksheet Patient Problems: Problems Problem Status Onset Arterial embolism and thrombosis of lower extremity Acute Cardiomyopathy Acute Renal infarct Acute
[2018-11-27] MEDS: ASPIRIN EC 81 MG TAB PO SCH (09:17)
[2018-11-27] MEDS: THIAMINE HCL 100 MG TAB PO SCH (09:17)
[2018-11-27] MEDS: ISOSORBIDE DINITRATE 10 MG TAB PO SCH ×3 (09:17→15:17)
[2018-11-27] MEDS: hydrALAZINE 10 MG TAB PO SCH ×3 (09:17→21:02)
[2018-11-27] MEDS: PANTOPRAZOLE SODIUM 40 MG TAB PO SCH (09:17)
[2018-11-27] MEDS: CARVEDILOL 25 MG TAB PO SCH (09:18)
[2018-11-27] MEDS: SPIRONOLACTONE 25 MG TAB PO SCH (09:18)
--- NOTE | 2018-11-27 09:58 | PDINTPN ---
It Admin Progress Note Assessment/Plan: ASSESSMENT 38-year-old morbidly obese male with polysubstance abuse with new decompensated nonischemic cardiomyopathy multiple arterial emboli # decompensated systolic heart failure # nonischemic cardiomyopathy. Cocaine, alcohol, AFib # multiple multiple arterial thromboemboli # right lower extremity ischemic limb. Status post intervention # super morbid obesity # hypervolemic # polysubstance abuse PLAN # increase lasix from 20 to 40 mg q8 hrs, goal neg 2L+/24 hours # continue heparin gtt for now given possible repeat procedure with Dr Alanis # will transition to rivaroxaban (DOAC with best data in morbidly obese pts) when no more procedures are planned # rate control with beta sasha and digoxin # trend electrolytes # counseled on alcohol and drug avoidance # Feeding - advance as tolerated # Analgesia APAP, fentanyl # Sedation qh trazodone and melatonin # Thromboprophylaxis - hep gtt # Head of bed elevated # Ulcer prophylaxis - H2 sasha # Glucose SSI # Skin no skin breakdown # Delirium - delirium precautions ABX None CX Data NA IMAGING I personally reviewed interpreted patient's radiographic data as well as formal imaging 11/18/2018 chest x-ray interstitial pulmonary edema poor study due to super morbid obese Subjective: Slept well throughout the night, has not ambulated out of bed, still with vague left-sided abdominal pain. Still complaining of bilateral lower extremity edema No fevers chills nausea vomiting or worsening swelling. Objective: Vital Signs Temp Pulse Resp BP Pulse Ox 36.9 C 104 H 21 H 115/83 H 99 11/27/18 06:00 11/27/18 09:18 11/27/18 06:00 11/27/18 09:18 11/27/18 06:00 11/26/18 11/27/18 11/28/18 05:59 05:59 05:59 Intake Total 2533.0 3687 Output Total 5150 3500 Balance -2617.0 187 PT 18.5 SEC (12.0-15.0) H 11/23/18 17:35 INR 1.53 (0.83-1.16) H 11/23/18 17:35 Physical Exam - Physical Exam General Appearance: obese EENT: PERRL/EOMI, normal ENT inspection Neck: non-tender, full range of motion Respiratory: chest non-tender, decreased breath sounds, No stridor, No wheezing Cardiac/Chest: other (Distant heart sounds no murmurs or gallops appreciate) Abdomen: other (Protuberant mild edema and lower half) Back: Other (Mild left-sided abdominal/flank tenderness) Skin: normal color, other (Hemosiderin laden changes in bilateral lower extremities, right lower extremity with distal ulceration pink) Extremities: pedal edema, swelling, other (Skin changes above) Neuro/Psych: no motor/sensory deficits, alert, normal mood/affect ICD10 Worksheet Patient Problems: Problems Problem Status Onset Arterial embolism and thrombosis of lower extremity Acute Cardiomyopathy Acute Renal infarct Acute
[2018-11-27 10:00] LABS: PLATELET COUNT 170 10^3/uL (150-400)
--- NOTE | 2018-11-27 10:01 | CPEKG ---
Test Reason : OPEN Blood Pressure : / mmHG Vent. Rate : 090 BPM Atrial Rate : 000 BPM P-R Int : 114 ms QRS Dur : 095 ms QT Int : 428 ms P-R-T Axes : 171 085 180 degrees QTc Int : 524 ms Atrial fibrillation Ventricular premature complex Probable anterior infarct, age indeterminate Lateral leads are also involved Confirmed by Kavon Patricio ([id number]) on 11/27/2018 10:01:04 AM Referred By: Mulugeta Harkins Confirmed By:Kavon Patricio
[2018-11-27] MEDS ORDERED: MAGNESIUM HYDROXIDE 30 ML UDCUP PO PRN (10:20)
[2018-11-27] MEDS ORDERED: POLYETHYLENE GLYCOL 3350 17 GM PKT PO PRN (10:20)
[2018-11-27] MEDS ORDERED: BISACODYL 10 MG SUPP PR PRN (10:20)
[2018-11-27] MEDS ORDERED: LACTULOSE 20 GM/30 ML UDCUP PO PRN (10:20)
[2018-11-27] MEDS ORDERED: traZODone 50 MG TAB PO PRN (10:21)
[2018-11-27] MEDS ORDERED: MELATONIN 3 MG TAB PO SCH (10:22)
[2018-11-27] MEDS: DIGOXIN 250 MCG TAB PO SCH (10:55)
--- NOTE | 2018-11-27 12:32 | SOAPPROG ---
SOAP Progress Note Assessment/Plan: Assessment: 38 y/o man with no previous cardiac and medical issues but regular ETOH and cocaine use came to ER with painful right leg and found to be in afib at 180bpm , CHF and clot in right leg arterial system and renal arteries bilateral. MOISES better defined true heart function with LVEF 22% and still large DIANA clot. His afib is better controlled. REC: 1)agree with increasing IV lasix to 40mg IV TID. Probably eventually transition him to PO Demadex 2)increase Coreg to 18.75mg PO BID for more ventricular rate control. 3)? start Coumadin or NOAC agent and transition off iv heparin to oral anticoagulation 4)AM labs tomorrow (BMP and BNP level). 5)I am hopeful with time off ETOH and cocaine and with afib rate better controlled his LVEF will improve. 11/27/18 12:24 Subjective: overall no cardiac complaints. Denies CP, rest shortness of breath or dizziness. Main symptom is left flank pain. Objective: Vital Signs Temp Pulse Resp BP Pulse Ox 36.8 C 115 H 22 H 110/57 L 97 11/27/18 08:00 11/27/18 12:00 11/27/18 12:00 11/27/18 12:00 11/27/18 12:00 Laboratory Results 11/27/18 09:48 11/27/18 09:48 11/26/18 11/27/18 11/28/18 05:59 05:59 05:59 Intake Total 2533.0 3687 Output Total 5150 3500 Balance -2617.0 187 PT 18.5 SEC (12.0-15.0) H 11/23/18 17:35 INR 1.53 (0.83-1.16) H 11/23/18 17:35 Physical Exam - Physical Exam General Appearance: alert, obese EENT: PERRL/EOMI Neck: non-tender Respiratory: lungs clear Cardiac/Chest: tachycardia, systolic murmur, irregularly irregular, No gallop, No JVD Peripheral Pulses: 1+: femoral (R), femoral (L), dorsalis-pedis (R), dorsalis- pedis (L), 2+: carotid (R), carotid (L) Abdomen: non-tender, No guarding, No ascites Skin: warm/dry Extremities: pedal edema Neuro/Psych: alert ICD10 Worksheet Patient Problems: Problems Problem Status Onset Arterial embolism and thrombosis of lower extremity Acute Cardiomyopathy Acute Renal infarct Acute
--- NOTE | 2018-11-27 12:55 | HOSPPROG ---
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 He is found to have new onset severe cardiomyopathy systolic dysfunction, new onset AFib with a large left atrial thrombus, and multiple emboli due to this leading to his presentation here. # systolic cardiomyopathy unclear etiology. EF low but poor visualization due to patient obesity. Possibly related to drug use or postviral cardiomyopathy. * Appreciate Cardiology, repeat MOISES today to better visualize atrial clot * Medical management until patient more stable and could consider angiogram at that time * On Coreg, Aldactone, IV Lasix, isosorbide and hydralazine # left atrial thrombus with multiple emboli including left distal leg ischemia , bilateral renal artery occlusions. Currently on heparin * Complained of increased flank pain last night which has since resolved. Unfortunately could be another thrombus however no change in therapy at this time would be done * transition to warfarin per recommendations from cardiology. # acute ischemic right leg with SFA occlusion, status post thrombectomy with pulses present. General surgery following * Bed rest per surgery, continue heparin and till therapeutic on warfarin. 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 * Continue to monitor renal function # atrial fibrillation with rapid ventricular rate currently on anticoagulation and rate controlled with Dig and Coreg, diltiazem drip has been turned off. * High risk for stroke or other emboli. # diabetes with poor control. Currently on insulin drip at a rate of 1.8 units /hour. * Increase Lantus to 20 units daily, continue insulin sliding scale # polysubstance abuse with alcohol and cocaine. Watch for withdrawal symptoms. Subjective: Discuss in multidisciplinary rounds. Overall comfortable complains of some left flank pain that comes and goes likely secondary to his renal infarcts. Poor appetite but able to eat and drink. Objective: Vital Signs Temp Pulse Resp BP Pulse Ox 36.8 C 115 H 22 H 110/57 L 97 11/27/18 08:00 11/27/18 12:00 11/27/18 12:00 11/27/18 12:00 11/27/18 12:00 Laboratory Results 11/27/18 09:48 11/27/18 09:48 11/26/18 11/27/18 11/28/18 05:59 05:59 05:59 Intake Total 2533.0 3687 500 Output Total 5150 3500 1500 Balance -2617.0 187 -1000 PT 18.5 SEC (12.0-15.0) H 11/23/18 17:35 INR 1.53 (0.83-1.16) H 11/23/18 17:35 - Physical Exam Constitutional: obese Eyes: PERRL Ears, Nose, Mouth, Throat: moist mucous membranes Cardiovascular: irregularly irregular, edema Respiratory: no respiratory distress, clear to auscultation, reduced air movement (Bases) Gastrointestinal: tenderness (Mild no guarding), distension, No guarding Genitourinary: chavez in urethra Skin: warm, erythema (Erythema and chronic venous stasis changes lower extremities with some ulcerations on the toes) Neurologic: AAOx3 Psychiatric: interacting appropriately ICD10 Worksheet Patient Problems: Problems Problem Status Onset Arterial embolism and thrombosis of lower extremity Acute Cardiomyopathy Acute Renal infarct Acute
[2018-11-27] MEDS: HEPARIN/DEXTROSE 500 ML IV SCH ×2 (15:18→23:21)
--- NOTE | 2018-11-27 15:53 | WOCRNPDOC ---
WOCRN Advanced Assessment Note - Skin Integrity Problem, Advanced Assess Right Fifth Toe Unknown Dressing Type: Open to Air Exudate Amount: Minimal Exudate Characteristic(s): Sanguinopurulent Integumentary Issue Intervention: Dressing Applied Jesika Wound Tissue: Erythema, Calloused Wound Bed Constitution: Granulation Tissue (100%), Unstable Eschar Site Measurement - Head-to-Toe Length X Width X Depth (cm): 1.1x1.6x0.5 Extremity Temperature: Warm Skin Integrity Problem Comment: Necrotic soft area on lateral fifth toe likely related to ischemia. Small amount of salima purlent drainage was noted. The top of the necrosis was removed with gauze revealing a clean wound bed, however there was still necrotic tissue at 2 oclock and a large callous from 6 to 9 oclock. Patient reports that he has had the callous for a "long time" and that he does not see a surgical technology instructor. The calloused area was lifting off the now open wound bed. Flushed wound well with ns. Two small pieces of loose skin were trimmed with scissors. Wound was packed with saline moistened sterile gauze. Reported to hSeyla TILLMAN that paper sorter and counter suggests a podiatry consultation and education was done with the patient re: need for podiatry care in outpatient setting; especially as he is diabetic. Patient has intact sensation in feet with no visible neuropathic changes. Reported to Ivanna MARIN and Rosina Bright NP. Wound care will follow.
[2018-11-27] MEDS ORDERED: WARFARIN SODIUM 5 MG TAB PO ONE (16:00)
[2018-11-27] MEDS: CARVEDILOL 6.25 MG TAB PO SCH (17:42)
[2018-11-27] MEDS ORDERED: CARVEDILOL 25 MG TAB PO SCH (18:00)
[2018-11-27] MEDS: SENNOSIDES/DOCUSATE SODIUM TAB PO SCH (21:01)
[2018-11-27] MEDS: MELATONIN 3 MG TAB PO SCH (21:02)
[2018-11-27] MEDS: morphINE PCA 30 MG/30 ML PCA IV PRN (23:22)
[2018-11-28 06:27] LABS: INR 1.36 (0.83-1.16); PROTIME(PATIENT) 16.9 SEC (12.0-15.0)
[2018-11-28] MEDS: FUROSEMIDE 20 MG/2 ML VIAL IVP SCH (07:16)
[2018-11-28] MEDS: HEPARIN 10,000 UNIT/10 ML MDV (1,000 UNIT/ML) IVP PRN (07:23)
[2018-11-28] MEDS: HEPARIN/DEXTROSE 500 ML IV SCH ×2 (07:23→15:08)
[2018-11-28] MEDS: PANTOPRAZOLE SODIUM 40 MG TAB PO SCH (07:30)
[2018-11-28] MEDS: ISOSORBIDE DINITRATE 10 MG TAB PO SCH ×3 (07:30→15:08)
[2018-11-28] MEDS: hydrALAZINE 10 MG TAB PO SCH ×2 (07:30→15:08)
[2018-11-28] MEDS: ASPIRIN EC 81 MG TAB PO SCH (07:30)
[2018-11-28] MEDS: SENNOSIDES/DOCUSATE SODIUM TAB PO SCH ×2 (07:31→21:48)
[2018-11-28] MEDS: CARVEDILOL 6.25 MG TAB PO SCH ×2 (07:31→17:57)
[2018-11-28] MEDS: THIAMINE HCL 100 MG TAB PO SCH (07:31)
[2018-11-28] MEDS: SPIRONOLACTONE 25 MG TAB PO SCH ×3 (07:32→21:48)
[2018-11-28] MEDS ORDERED: POTASSIUM CL 10 MEQ TAB PO ONE (07:33)
[2018-11-28] MEDS: INSULIN GLARGINE 100 UNITS/ML UNIT SC SCH (07:41)
[2018-11-28] MEDS: INSULIN LISPRO 100 UNIT/ML SC SCH ×3 (07:44→18:01)
[2018-11-28] MEDS ORDERED: MAGNESIUM OXIDE 400 MG TAB PO SCH (09:00)
--- NOTE | 2018-11-28 09:11 | PDINTPN ---
Night Shift Progress Note Assessment/Plan: ASSESSMENT 38-year-old morbidly obese male with polysubstance abuse with new decompensated nonischemic cardiomyopathy multiple arterial emboli # decompensated systolic heart failure # nonischemic cardiomyopathy. Cocaine, alcohol, AFib # afib # multiple multiple arterial thromboemboli # right lower extremity ischemic limb. Status post intervention by Dr Alanis and Fletcher # super morbid obesity # hypervolemic # polysubstance abuse # constipation PLAN # continue aggressive diuresis goal net negative at least 2-3 L per day # increase spironolactone for K sparing effect and neuro hormonal blockade # continue heparin gtt for now given possible repeat procedure with Dr Alanis # will transition to rivaroxaban (DOAC with best data in morbidly obese pts) when no more procedures are planned # rate control with Coreg and digoxin # trend electrolytes # aggressive bowel regimen # counseled on alcohol and drug avoidance # bedrest per gen surg # Feeding - advance as tolerated # Analgesia APAP, morphine visual c developer # Sedation qh trazodone and melatonin # Thromboprophylaxis - hep gtt # Head of bed elevated # Ulcer prophylaxis - H2 sasha # Glucose SSI # Skin no skin breakdown # Delirium - delirium precautions ABX None CX Data NA IMAGING I personally reviewed interpreted patient's radiographic data as well as formal imaging 11/28/2018 chest x-ray interstitial pulmonary edema poor study due to super morbid obese 11/28/18 14:38 Subjective: decreased melatonin, increased lasix, added trazodone. Improved UOP and good sleep. Added bowel reg but still has not had significant stool output since admission. No fevers, chills, nausea, vomiting, chest pain, or increasing leg pain Objective: Vital Signs Temp Pulse Resp BP Pulse Ox 37.1 C 114 H 18 130/76 H 97 11/28/18 00:00 11/28/18 07:31 11/28/18 00:00 11/28/18 07:31 11/28/18 00:00 Laboratory Results 11/27/18 09:48 11/28/18 05:55 11/27/18 11/28/18 11/29/18 05:59 05:59 05:59 Intake Total 3687 1700 Output Total 3500 4500 2300 Balance 187 -2800 -2300 PT 16.9 SEC (12.0-15.0) H 11/28/18 05:55 INR 1.36 (0.83-1.16) H 11/28/18 05:55 Physical Exam - Physical Exam General Appearance: alert EENT: PERRL/EOMI, normal ENT inspection Neck: non-tender, full range of motion, other (thick neck) Respiratory: chest non-tender, lungs clear Cardiac/Chest: other (Decreased cardiac sounds no murmur rubs or gallops appreciate) Abdomen: other (Bowel sounds present,) Male Genitalia: other (Enlarged edematous and ecchymotic scrotum Foster in place) Skin: other (Chronic hemosiderin changes lower extremities) Extremities: pedal edema, swelling, other (Right toes bandage) Neuro/Psych: no motor/sensory deficits, alert, normal mood/affect, oriented x 3 ICD10 Worksheet Patient Problems: Problems Problem Status Onset Arterial embolism and thrombosis of lower extremity Acute Cardiomyopathy Acute Renal infarct Acute
[2018-11-28] MEDS: DIGOXIN 250 MCG TAB PO SCH (09:44)
[2018-11-28] MEDS ORDERED: ALTEPLASE 2 MG VIAL IVP PRN (10:23)
[2018-11-28] MEDS ORDERED: acetaZOLAMIDE 500 MG in SYRINGE 0 ML IVP ONE (11:01)
--- NOTE | 2018-11-28 11:08 | HOSPPROG ---
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 He is found to have new onset severe cardiomyopathy systolic dysfunction, new onset AFib with a large left atrial thrombus, and multiple emboli due to this leading to his presentation here. systolic cardiomyopathy unclear etiology. EF low but poor visualization due to patient obesity. likely related to drug/alcohol use or, less likely, postviral cardiomyopathy. * On Coreg, Aldactone, IV Lasix, isosorbide and hydralazine aggressive diuresis unlikely ischemic but reasonable to do angiogram prior to dc suspect LVEF will improve, suggest repeating when more euvolemic left atrial thrombus with multiple emboli including left distal leg ischemia, bilateral renal artery occlusions. Currently on heparin * Complained of increased flank pain last night which has since resolved. Unfortunately could be another thrombus however no change in therapy at this time would be done * transition to warfarin /noac * acute ischemic right leg with SFA occlusion, status post thrombectomy with pulses present. 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 * Continue to monitor renal function * stable today atrial fibrillation with rapid ventricular rate currently on anticoagulation and rate controlled with Dig and Coreg, diltiazem drip has been turned off. * High risk for stroke or other emboli. * hr 100's today follow w diuresis diabetes with poor control. Currently on insulin drip at a rate of 1.8 units/ hour. * Increase Lantus to 20 units daily, continue insulin sliding scale polysubstance abuse with alcohol and cocaine. Watch for withdrawal symptoms. none thus far acknowledges need for chamge Subjective: case d/w Dr Garrett. diuresing. feels well Objective: Vital Signs Temp Pulse Resp BP Pulse Ox 37.1 C 110 H 14 113/62 98 11/28/18 00:00 11/28/18 10:00 11/28/18 10:00 11/28/18 10:57 11/28/18 10:00 Laboratory Results 11/27/18 09:48 11/28/18 05:55 11/27/18 11/28/18 11/29/18 05:59 05:59 05:59 Intake Total 3687 1700 Output Total 3500 4500 2300 Balance 187 -2800 -2300 PT 16.9 SEC (12.0-15.0) H 11/28/18 05:55 INR 1.36 (0.83-1.16) H 11/28/18 05:55 - Physical Exam Constitutional: no apparent distress, appears nourished Eyes: PERRL, anicteric sclera Ears, Nose, Mouth, Throat: moist mucous membranes, hearing normal Cardiovascular: no murmur, rub, or gallop, irregularly irregular, edema Respiratory: no respiratory distress, no rales or rhonchi Gastrointestinal: normoactive bowel sounds Genitourinary: no bladder fullness, chavez in urethra Skin: warm, normal color Musculoskeletal: other (anasarca) Neurologic: AAOx3, sensation intact bilaterally ICD10 Worksheet Patient Problems: Problems Problem Status Onset Arterial embolism and thrombosis of lower extremity Acute Cardiomyopathy Acute Renal infarct Acute
[2018-11-28] MEDS ORDERED: FUROSEMIDE 20 MG/2 ML VIAL IVP SCH (12:00)
--- NOTE | 2018-11-28 13:49 | ASMTCMCOM ---
CM Note CM Note Notes: Per hospitalist, patient likely has 4-5 more days inpatient. He has not been out of bed but reports that he will be allowed to move tomorrow. He reports that he live with roomates. If he is able to ambulate safely, I imagine he will d/c home independently. Case Management available for any d/c needs. Date Signed: 11/28/2018 01:49 PM Electronically Signed By:Mei Martinez RN
--- NOTE | 2018-11-28 15:08 | SOAPPROG ---
[facility] Progress Note Assessment/Plan: Assessment: 38yo M c multiple medical issues s/p RLE thrombectomy x2 - RLE remains warm, pulses are actually palpable today - flank pain is improved - heparin subtherapeutic this AM, has been pretty much every morning - continue bedrest through today, mobilize tomorrow. Plan: 11/25/18 13:04 11/26/18 10:42 11/28/18 15:08 Subjective: less flank pain today Objective: Vital Signs Temp Pulse Resp BP Pulse Ox 37.1 C 120 H 14 118/74 94 11/28/18 00:00 11/28/18 14:00 11/28/18 14:00 11/28/18 14:00 11/28/18 14:00 Laboratory Results 11/27/18 09:48 11/28/18 05:55 11/27/18 11/28/18 11/29/18 05:59 05:59 05:59 Intake Total 3687 1700 500 Output Total 3500 4500 6500 Balance 187 -2800 -6000 PT 16.9 SEC (12.0-15.0) H 11/28/18 05:55 INR 1.36 (0.83-1.16) H 11/28/18 05:55 ICD10 Worksheet Patient Problems: Problems Problem Status Onset Arterial embolism and thrombosis of lower extremity Acute Cardiomyopathy Acute Renal infarct Acute
--- NOTE | 2018-11-28 15:18 | PDCARPN ---
Cardiology Progress Note Chief Complaint: Left flank pain Assessment/Plan: Assessment: The patient is a 38 y/o with a history of ETOH and cocaine abuse who presented with leg edema and pain. He was found to be in new onset a.fib with a new CMP and EF of 22%. Echo also showed a DIANA clot. He had embolization to the bilateral renals and right leg which is s/p thrombectomy. He is also in heart failure. Plan: 1. Systolic CHF- Currently on Lasix IV 40mg Q6. I/O is -6000 today. His rates have increased which I suspect is secondary to over diuresis. Reduce Lasix to 40 IV TID. 2. CMP with EF of 20-25%- Continue Coreg. No YESENIA-I secondary to renal infarcts. Isosorbide dinitrate and Hydralazine. Renal function has been stable. Consider adding YESENIA-I. 3. Atrial fibrillation- Currently on Dig and Coreg. His rates have increased into the 120's. 4. DIANA clot- with embolization to bilateral renals and R leg on Heparin 5. hypomagnesemia- being replaced. Pt discussed with Dr. Kelly. 11/28/18 16:44 Subjective: He denies any CP or SOB. C/o left flank pain. Edema is improving. Reviewed/Discussed With: multidisciplinary team Objective: Vital Signs (8 Hrs) Pulse Resp BP Pulse Ox 11/28/18 15:08 118/63 11/28/18 14:00 120 H 14 118/74 94 11/28/18 12:00 130 H 22 H 123/79 H 97 11/28/18 10:57 113/62 11/28/18 10:00 110 H 14 113/62 98 11/28/18 09:44 110 H 11/28/18 07:31 114 H 130/76 H 11/28/18 07:30 130/76 H Intake/Output (24 Hrs) 11/27/18 11/28/18 11/29/18 05:59 05:59 05:59 Intake Total 3687 1700 500 Output Total 3500 4500 6500 Balance 187 -2800 -6000 Intake: Oral (ml) 2200 1000 500 IV Infused (ml) 1487 700 Diltiazem HCl/D5w 125 ml 77 @ Per Protocol IV CONT HARRIS Rx#:[id number] Heparin/Dextrose 500 ml @ 1383 700 Per Protocol IV CONT HARRIS Rx#:[id number] Ns 1,000 ml @ TKO IV 27 ONCALL ONE Rx#:[id number] Output: Urine (ml) 3500 4500 6500 Catheter 3500 4500 6500 Other: Weight 198.2 kg 197.2 kg Number of Stools Incontinence 0 Result Diagrams: 11/27/18 09:48 11/28/18 05:55 Telemetry: a.fib with RVR in the 120's - Physical Exam Constitutional: no apparent distress, obese Cardiovascular: irregularly irregular Respiratory: inspiratory crackles Gastrointestinal: ascites Skin: other (Edema bilaterally) ICD10 Worksheet Patient Problems: Problems Problem Status Onset Arterial embolism and thrombosis of lower extremity Acute Cardiomyopathy Acute Renal infarct Acute
[2018-11-28] MEDS ORDERED: MAGNESIUM OXIDE 400 MG TAB PO ONE (16:45)
[2018-11-28] MEDS ORDERED: MAGNESIUM SULF 2 GM/WATER 50 ML IV ONE (18:57)
[2018-11-28] MEDS ORDERED: PROTOCOL MAGNESIUM 1 DOSE IV PRN (18:58)
[2018-11-28] MEDS: MAGNESIUM OXIDE 400 MG TAB PO SCH (21:48)
[2018-11-28] MEDS: MELATONIN 3 MG TAB PO SCH (21:48)
[2018-11-28] MEDS: FAMOTIDINE 20 MG TAB PO SCH (21:48)
[2018-11-28] MEDS ORDERED: FUROSEMIDE 40 MG TAB PO SCH (22:00)
[2018-11-29] MEDS: HEPARIN/DEXTROSE 500 ML IV SCH ×2 (00:23→09:17)
[2018-11-29] MEDS ORDERED: POTASSIUM CL 10 MEQ TAB PO ONE ×2 (05:49→21:19)
[2018-11-29] MEDS: FAMOTIDINE 20 MG TAB PO SCH ×2 (07:55→21:24)
[2018-11-29] MEDS: INSULIN LISPRO 100 UNIT/ML SC SCH ×3 (07:56→18:06)
[2018-11-29] MEDS: CARVEDILOL 6.25 MG TAB PO SCH (07:56)
[2018-11-29] MEDS: ASPIRIN EC 81 MG TAB PO SCH (07:56)
[2018-11-29] MEDS: THIAMINE HCL 100 MG TAB PO SCH (07:56)
[2018-11-29] MEDS ORDERED: POTASSIUM CL 20 MEQ TAB PO ONE (09:20)
[2018-11-29] MEDS: INSULIN GLARGINE 100 UNITS/ML UNIT SC SCH (09:26)
[2018-11-29] MEDS: MAGNESIUM OXIDE 400 MG TAB PO SCH ×3 (09:31→21:23)
[2018-11-29] MEDS: SPIRONOLACTONE 25 MG TAB PO SCH ×2 (09:31→21:24)
--- NOTE | 2018-11-29 10:02 | HOSPPROG ---
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 He is found to have new onset severe cardiomyopathy systolic dysfunction, new onset AFib with a large left atrial thrombus, and multiple emboli due to this leading to his presentation here. systolic cardiomyopathy unclear etiology. EF low but poor visualization due to patient obesity. likely related to drug/alcohol use or, less likely, postviral cardiomyopathy. * On Coreg, Aldactone, IV Lasix, isosorbide and hydralazine aggressive diuresis- 6.8 L neg overnight! follow met panel daily w diuresis unlikely ischemic but reasonable to do angiogram prior to dc suspect LVEF will improve, suggest repeating echo when more euvolemic left atrial thrombus with multiple emboli including left distal leg ischemia, bilateral renal artery occlusions. Currently on heparin * Complained of increased flank pain last night which has since resolved. Unfortunately could be another thrombus however no change in therapy at this time would be done * transition to warfarin /noac * acute ischemic right leg with SFA occlusion, status post thrombectomy with pulses present. 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 * Continue to monitor renal function * stable today atrial fibrillation with rapid ventricular rate currently on anticoagulation and rate controlled with Dig and Coreg, diltiazem drip has been turned off. * High risk for stroke or other emboli. * hr 100's today follow w diuresis diabetes with poor control. Currently on insulin drip at a rate of 1.8 units/ hour. * Increase Lantus to 20 units daily, continue insulin sliding scale polysubstance abuse with alcohol and cocaine. Watch for withdrawal symptoms. none thus far acknowledges need for change Objective: Vital Signs Temp Pulse Resp BP Pulse Ox 37.0 C 109 H 16 121/76 H 96 11/29/18 08:00 11/29/18 08:00 11/29/18 08:00 11/29/18 08:00 11/29/18 08:00 Laboratory Results 11/27/18 09:48 11/29/18 04:40 11/28/18 11/29/18 11/30/18 05:59 05:59 05:59 Intake Total 1700 4092 Output Total 4500 04536 Balance -2800 -6808 PT 16.9 SEC (12.0-15.0) H 11/28/18 05:55 INR 1.36 (0.83-1.16) H 11/28/18 05:55 - Physical Exam Constitutional: no apparent distress, appears nourished Eyes: PERRL, anicteric sclera Ears, Nose, Mouth, Throat: moist mucous membranes, hearing normal Cardiovascular: no murmur, rub, or gallop, irregularly irregular, edema Respiratory: no respiratory distress, no rales or rhonchi Gastrointestinal: normoactive bowel sounds, soft, non-tender abdomen Genitourinary: No chavez in urethra Skin: warm, other (chronic vemous stasis changes ) Musculoskeletal: full muscle strength Neurologic: AAOx3 ICD10 Worksheet Patient Problems: Problems Problem Status Onset Arterial embolism and thrombosis of lower extremity Acute Cardiomyopathy Acute Renal infarct Acute
[2018-11-29] MEDS: SENNOSIDES/DOCUSATE SODIUM TAB PO SCH ×2 (10:07→21:23)
--- NOTE | 2018-11-29 10:23 | PDINTPN ---
Dog Pound Attendant Progress Note Assessment/Plan: ASSESSMENT 38-year-old morbidly obese male with polysubstance abuse with new decompensated nonischemic cardiomyopathy multiple arterial emboli # decompensated systolic heart failure. Diuresing excellent # nonischemic cardiomyopathy. Cocaine, alcohol, AFib # afib # multiple multiple arterial thromboemboli # right lower extremity ischemic limb. Status post intervention by Dr Vu # super morbid obesity # hypervolemia # polysubstance abuse # constipation # GERD PLAN # continue aggressive diuresis goal net negative at least 2-3 L per day # spironolactone for K sparing effect and neuro hormonal blockade # coreg uptitrated 11/28/18 PM for afterload reduction and afib # stopped Isordil and hydral 11/28/18 # aggressive bowel regimen # rivraxaban 15 PO BID x 21 days then 20 mg daily # stop heparin gtt # rate control with Coreg and digoxin # trend electrolytes # counseled on alcohol and drug avoidance # out of be to chair # Feeding - advance as tolerated # Analgesia APAP, morphine hydraulic repairer (wean off as able) # Sedation qh trazodone and melatonin # Thromboprophylaxis - rivaroxaban # Head of bed elevated # Ulcer prophylaxis - H2 sasha for GERD # Glucose SSI # Skin no skin breakdown # Delirium - delirium precautions ABX None CX Data NA IMAGING I personally reviewed interpreted patient's radiographic data as well as formal imaging 11/28/2018 chest x-ray interstitial pulmonary edema poor study due to super morbid obese Subjective: Excellent diuresis yesterday. Coreg increased for afib and afterload reduction. spironolactone increased, hydral and isordil stopped yesterday after getting okay from with cards PA. No fevers, chills, n/v, new chest pain Objective: Vital Signs Temp Pulse Resp BP Pulse Ox 37.0 C 109 H 16 121/76 H 96 11/29/18 08:00 11/29/18 08:00 11/29/18 08:00 11/29/18 08:00 11/29/18 08:00 Laboratory Results 11/27/18 09:48 11/29/18 04:40 11/28/18 11/29/18 11/30/18 05:59 05:59 05:59 Intake Total 1700 4092 Output Total 4500 76907 Balance -2800 -6808 PT 16.9 SEC (12.0-15.0) H 11/28/18 05:55 INR 1.36 (0.83-1.16) H 11/28/18 05:55 Physical Exam - Physical Exam EENT: PERRL/EOMI, normal ENT inspection Neck: non-tender, other (Thick neck. No lesions) Respiratory: chest non-tender, lungs clear, No respiratory distress Cardiac/Chest: other (Distant heart sounds, no murmurs rubs gallops appreciated) Abdomen: other (Protuberant and abdomen nontender) Male Genitalia: other (Edematous scrotum. Ecchymoses present unable to visualize penis due to anatomy and edema. Foster in place.) Skin: other (Chronic venous stasis changes lower extremities. Right toe bandage.) Extremities: normal range of motion, pedal edema, swelling Neuro/Psych: no motor/sensory deficits, alert, normal mood/affect, oriented x 3 ICD10 Worksheet Patient Problems: Problems Problem Status Onset Arterial embolism and thrombosis of lower extremity Acute Cardiomyopathy Acute Renal infarct Acute
[2018-11-29] MEDS: HEPARIN 10,000 UNIT/10 ML MDV (1,000 UNIT/ML) IVP PRN (11:01)
[2018-11-29] MEDS: DIGOXIN 250 MCG TAB PO SCH (11:01)
--- NOTE | 2018-11-29 11:24 | SOAPPROG ---
SOAP Progress Note Assessment/Plan: Assessment: 38 y/o man with no previous cardiac and medical issues but regular ETOH and cocaine use came to ER with painful right leg and found to be in afib at 180bpm , CHF and clot in right leg arterial system and renal arteries bilateral. MOISES better defined true heart function with LVEF 22% and still large DIANA clot. His afib is better controlled and he is starting to have large amounts of IV diureses. He is still hypervolemic. PLAN" 1)agree with change IV lasix to 40mg BID 2)okay to stop Hydralazine and Isordil. Will probably try YESENIA inhibitor in 1-2 weeks once known renal function stable after renal infarct 3)continue current dose of Coreg, Digoxin and Aldactone. 4)when no more vascular surgeries planned, start NOAC agent. 11/29/18 11:20 Subjective: overall he feels a little better. Still left flank pain. Short of breath with moving around bed. Denies CP, TIA sx or near syncope. Objective: Vital Signs Temp Pulse Resp BP Pulse Ox 37.0 C 107 H 20 119/75 97 11/29/18 08:00 11/29/18 10:00 11/29/18 10:00 11/29/18 10:00 11/29/18 10:00 Laboratory Results 11/27/18 09:48 11/29/18 04:40 11/28/18 11/29/18 11/30/18 05:59 05:59 05:59 Intake Total 1700 4092 Output Total 4500 91091 Balance -2800 -6808 PT 16.9 SEC (12.0-15.0) H 11/28/18 05:55 INR 1.36 (0.83-1.16) H 11/28/18 05:55 Physical Exam - Physical Exam General Appearance: alert, obese EENT: normal ENT inspection Neck: non-tender Respiratory: lungs clear Cardiac/Chest: JVD, tachycardia, systolic murmur, irregularly irregular Peripheral Pulses: 1+: femoral (R), femoral (L), dorsalis-pedis (R), dorsalis- pedis (L), 2+: carotid (R), carotid (L) Abdomen: No non-tender, No ascites Skin: warm/dry Extremities: pedal edema Neuro/Psych: alert ICD10 Worksheet Patient Problems: Problems Problem Status Onset Arterial embolism and thrombosis of lower extremity Acute Cardiomyopathy Acute Renal infarct Acute
[2018-11-29] MEDS: FUROSEMIDE 40 MG/4 ML VIAL IVP SCH ×2 (11:56→15:39)
--- NOTE | 2018-11-29 12:00 | WOCRNPDOC ---
WOCRN Advanced Assessment Note - Skin Integrity Problem, Advanced Assess Right Fifth Toe Unknown Dressing Type: Gauze Dressing Description: Clean/Dry, Intact Exudate Amount: None Wound Bed Constitution: Dried Exudate Skin Integrity Problem Comment: Dressing dry on patient's foot. Too much dried exudate to assess wound. Area was cleaned with ns and gauze. Silvasorb was applied to wound bed and then covered with tegaderm. Reported to Sotero TILLMAN who will change the dressing per orders on noc shift when the wound bed has remoisturized. Wound care will follow.
[2018-11-29] MEDS: morphINE PCA 30 MG/30 ML PCA IV PRN (12:38)
--- NOTE | 2018-11-29 13:00 | SOAPPROG ---
SOAP Progress Note Assessment/Plan: Assessment/plan: 38 y/o M with DM and hx of cocaine abuse s/p R femoral-popliteal embolectomy and thrombectomy for acute ischemic leg x2 Large L atrium clot. A-fib. Not a candidate for cardioversion due to clot in L atrium Appreciate cardiology input. Bilateral lower extremity arterial occlusions. Both feet warm on exam today. Excellent pedal pulses on doppler Bilateral renal occlusions. uop adequate and Cr nl. L flank pain improved Heparin subtherapeutic today. Got bolus this am and still subtherapeutic. Give additional bolus, then ok to transition to Xarelto, as no further surgery anticipated at this time. Ok to get up oob Downgrade to PCU. Continue chavez for aggressive diuresis S: No complaints. Denies pain. O: Alert Afebrile VSS, HDS Cardiac: irregularly irregular Chest: Ctab, no increased wob Abdomen: soft, nontender Bilateral lower extremities: 3+ edema throughout, red/purple skin color change, + pedal pulses on doppler, brisk cap refill. R groin dressing cdi 11/29/18 12:58 Objective: Vital Signs Temp Pulse Resp BP Pulse Ox 37 C 112 H 19 135/88 H 97 11/29/18 12:00 11/29/18 12:00 11/29/18 12:00 11/29/18 12:00 11/29/18 12:00 Laboratory Results 11/27/18 09:48 11/29/18 04:40 11/28/18 11/29/18 11/30/18 05:59 05:59 05:59 Intake Total 1700 4092 500 Output Total 4500 00602 2400 Balance -2800 -6808 -1900 PT 16.9 SEC (12.0-15.0) H 11/28/18 05:55 INR 1.36 (0.83-1.16) H 11/28/18 05:55 ICD10 Worksheet Patient Problems: Problems Problem Status Onset Arterial embolism and thrombosis of lower extremity Acute Cardiomyopathy Acute Renal infarct Acute
[2018-11-29] MEDS: RIVAROXABAN 15 MG TAB PO SCH ×2 (13:10→17:11)
[2018-11-29] MEDS: CARVEDILOL 25 MG TAB PO SCH (17:11)
[2018-11-29] MEDS: MELATONIN 3 MG TAB PO SCH (21:26)
[2018-11-29] MEDS: ACETAMINOPHEN 325 MG TAB PO PRN (23:12)
[2018-11-30] MEDS ORDERED: MAGNESIUM SULF 1 GM/DEXTROSE 100 ML IV ONE (07:47)
[2018-11-30] MEDS: MAGNESIUM OXIDE 400 MG TAB PO SCH ×3 (08:35→20:40)
[2018-11-30] MEDS: ASPIRIN EC 81 MG TAB PO SCH (08:36)
[2018-11-30] MEDS: CARVEDILOL 25 MG TAB PO SCH ×2 (08:37→17:52)
[2018-11-30] MEDS: THIAMINE HCL 100 MG TAB PO SCH (08:38)
[2018-11-30] MEDS: RIVAROXABAN 15 MG TAB PO SCH ×2 (08:39→17:48)
[2018-11-30] MEDS: SPIRONOLACTONE 25 MG TAB PO SCH ×2 (08:39→20:40)
[2018-11-30] MEDS: FAMOTIDINE 20 MG TAB PO SCH ×2 (08:40→20:40)
[2018-11-30] MEDS: SENNOSIDES/DOCUSATE SODIUM TAB PO SCH ×2 (08:41→20:38)
[2018-11-30] MEDS: FUROSEMIDE 40 MG/4 ML VIAL IVP SCH ×2 (08:43→15:06)
[2018-11-30] MEDS: INSULIN LISPRO 100 UNIT/ML SC SCH ×3 (08:44→18:37)
--- NOTE | 2018-11-30 08:58 | SOAPPROG ---
SOAP Progress Note Assessment/Plan: Assessment: 38 y/o man with no previous cardiac and medical issues but regular ETOH and cocaine use came to ER with painful right leg and found to be in afib at 180bpm , CHF and clot in right leg arterial system and renal arteries bilateral. MOISES better defined true heart function with LVEF 22% and still large DIANA clot. His afib is better controlled and he is starting to have large amounts of IV diureses. He is still hypervolemic. PLAN" 1)no change in current meds. 2)suspect periodic afib fast rates will come down with more IV diureses and stablization. For now keep at Coreg 25mg PO BID 3)BP is a little high. Will still hold on YESENIA inhibitor so early about renal artery embolic and renal infarcts. 4)slowly improving now out on telemetry floor. 11/30/18 08:55 Subjective: denies CP, PND or near syncope. Still AGUIRRE at minimal exertion in room and lots of edema up to groin. No headaches or TIA sx. Objective: Vital Signs Temp Pulse Resp BP Pulse Ox 37.0 C 114 H 18 147/88 H 97 11/30/18 08:00 11/30/18 08:37 11/30/18 08:00 11/30/18 08:37 11/30/18 08:00 Laboratory Results 11/27/18 09:48 11/30/18 05:00 11/29/18 11/30/18 12/01/18 05:59 05:59 05:59 Intake Total 4092 1892 Output Total 24581 7400 Balance -6808 -5508 PT 16.9 SEC (12.0-15.0) H 11/28/18 05:55 INR 1.36 (0.83-1.16) H 11/28/18 05:55 Physical Exam - Physical Exam General Appearance: alert, obese EENT: PERRL/EOMI Neck: non-tender Respiratory: chest non-tender, lungs clear Cardiac/Chest: JVD (jvp to 8-9cm.), tachycardia, systolic murmur, irregularly irregular, No gallop Peripheral Pulses: 1+: femoral (R), femoral (L), dorsalis-pedis (R), dorsalis- pedis (L), 2+: carotid (R), carotid (L) Abdomen: non-tender, No guarding, No rebound, No ascites Skin: warm/dry Extremities: pedal edema Neuro/Psych: alert ICD10 Worksheet Patient Problems: Problems Problem Status Onset Arterial embolism and thrombosis of lower extremity Acute Cardiomyopathy Acute Renal infarct Acute
[2018-11-30] MEDS: INSULIN GLARGINE 100 UNITS/ML UNIT SC SCH (09:40)
[2018-11-30] MEDS: DIGOXIN 250 MCG TAB PO SCH (11:27)
[2018-11-30] MEDS ORDERED: MAGNESIUM HYDROXIDE 30 ML UDCUP PO ONE (13:27)
--- NOTE | 2018-11-30 15:17 | HOSPPROG ---
Hospitalist Progress Note Assessment/Plan: 38-year-old man w arterial emboli 2/2 cardiac thrombus, dilated CMP, new dm systolic cardiomyopathy unclear etiology. EF low but poor visualization due to patient obesity. likely related to drug/alcohol use or, less likely, postviral cardiomyopathy. * On Coreg, Aldactone, IV Lasix, isosorbide and hydralazine aggressive diuresis- 5.5 L neg overnight!, 14 kg since admit still has a way to go follow met panel daily w diuresis unlikely ischemic but reasonable to do angiogram prior to dc suspect LVEF will improve, suggest repeating echo when more euvolemic necrotic toe: plain film today d/w dr fernandez left atrial thrombus with multiple emboli including left distal leg ischemia, bilateral renal artery occlusions. now on NOAc acute ischemic right leg with SFA occlusion, status post thrombectomy with pulses present. 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 * Continue to monitor renal function * stable today atrial fibrillation with rapid ventricular rate currently on anticoagulation and rate controlled with Dig and Coreg, * High risk for stroke or other emboli. * hr 100's today follow w diuresis diabetes with poor control. a1c 11 this is a new diagnosis this admission * Increase Lantus to 24 units daily, continue insulin sliding scale polysubstance abuse with alcohol and cocaine. Watch for withdrawal symptoms. none thus far acknowledges need for change dispo: inpt needs more diuresis Subjective: case d/w dr fernandez. tele: AF. no ventricular arrhythmias Objective: Vital Signs Temp Pulse Resp BP Pulse Ox 36.9 C 107 H 19 132/83 H 97 11/30/18 11:30 11/30/18 11:30 11/30/18 11:30 11/30/18 11:30 11/30/18 11:30 Laboratory Results 11/27/18 09:48 11/30/18 05:00 11/29/18 11/30/18 12/01/18 05:59 05:59 05:59 Intake Total 4092 1892 450 Output Total 41752 7400 2550 Balance -0899 -9754 -2100 PT 16.9 SEC (12.0-15.0) H 11/28/18 05:55 INR 1.36 (0.83-1.16) H 11/28/18 05:55 - Physical Exam Constitutional: no apparent distress, appears nourished Eyes: PERRL, anicteric sclera Ears, Nose, Mouth, Throat: moist mucous membranes, hearing normal Cardiovascular: regular rate and rhythym, no murmur, rub, or gallop, edema Respiratory: no respiratory distress, no rales or rhonchi Gastrointestinal: normoactive bowel sounds, soft, non-tender abdomen Genitourinary: no bladder fullness, chvaez in urethra, other (scrotum still markedly edematous) Skin: warm, normal color Musculoskeletal: full muscle strength Neurologic: AAOx3 ICD10 Worksheet Patient Problems: Problems Problem Status Onset Arterial embolism and thrombosis of lower extremity Acute Cardiomyopathy Acute Renal infarct Acute
--- NOTE | 2018-11-30 15:51 | SOAPPROG ---
SOAP Progress Note Assessment/Plan: Assessment/plan: 38 y/o M with DM and hx of cocaine abuse s/p R femoral-popliteal embolectomy and thrombectomy for acute ischemic leg x2 Large L atrium clot. A-fib. Not a candidate for cardioversion due to clot in L atrium Appreciate cardiology input. Bilateral lower extremity arterial occlusions. Both feet warm on exam today. Excellent pedal pulses on doppler Bilateral renal occlusions. uop adequate and Cr nl. L flank pain stable Xarelto started yesterday. Ok to get up oob Continue chavez for aggressive diuresis S: No complaints. Denies pain. O: Alert Afebrile VSS, HDS Cardiac: irregularly irregular Chest: Ctab, no increased wob Abdomen: soft, nontender Bilateral lower extremities: 3+ edema throughout, red/purple skin color change, + pedal pulses on doppler, brisk cap refill. R groin dressing cdi 11/30/18 15:50 Objective: Vital Signs Temp Pulse Resp BP Pulse Ox 36.9 C 107 H 19 132/83 H 97 11/30/18 11:30 11/30/18 11:30 11/30/18 11:30 11/30/18 11:30 11/30/18 11:30 Laboratory Results 11/27/18 09:48 11/30/18 05:00 11/29/18 11/30/18 12/01/18 05:59 05:59 05:59 Intake Total 4092 1892 450 Output Total 35841 7400 2550 Balance -6808 -5508 -2100 PT 16.9 SEC (12.0-15.0) H 11/28/18 05:55 INR 1.36 (0.83-1.16) H 11/28/18 05:55 ICD10 Worksheet Patient Problems: Problems Problem Status Onset Arterial embolism and thrombosis of lower extremity Acute Cardiomyopathy Acute Renal infarct Acute
[2018-11-30] MEDS ORDERED: DIGOXIN 250 MCG TAB PO ONE (18:00)
[2018-11-30] MEDS ORDERED: DIGOXIN 500 MCG/2 ML AMP IVP ONE (18:00)
[2018-11-30] MEDS: morphINE PCA 30 MG/30 ML PCA IV PRN (18:33)
[2018-11-30] MEDS ORDERED: POTASSIUM CL 10 MEQ TAB PO ONE (20:34)
[2018-11-30] MEDS: MELATONIN 3 MG TAB PO SCH (20:39)
[2018-12-01] MEDS: FUROSEMIDE 40 MG/4 ML VIAL IVP SCH ×2 (09:12→15:39)
[2018-12-01] MEDS: CARVEDILOL 25 MG TAB PO SCH ×2 (09:16→17:59)
[2018-12-01] MEDS: MAGNESIUM OXIDE 400 MG TAB PO SCH ×3 (09:17→21:01)
[2018-12-01] MEDS: SENNOSIDES/DOCUSATE SODIUM TAB PO SCH ×2 (09:17→21:05)
[2018-12-01] MEDS: DIGOXIN 250 MCG TAB PO SCH (09:18)
[2018-12-01] MEDS: SPIRONOLACTONE 25 MG TAB PO SCH ×2 (09:18→21:00)
[2018-12-01] MEDS: ASPIRIN EC 81 MG TAB PO SCH (09:19)
[2018-12-01] MEDS: THIAMINE HCL 100 MG TAB PO SCH (09:20)
[2018-12-01] MEDS: FAMOTIDINE 20 MG TAB PO SCH ×2 (09:20→21:01)
[2018-12-01] MEDS: RIVAROXABAN 15 MG TAB PO SCH ×2 (09:20→17:59)
[2018-12-01] MEDS: INSULIN GLARGINE 100 UNITS/ML UNIT SC SCH (09:24)
[2018-12-01] MEDS: INSULIN LISPRO 100 UNIT/ML SC SCH ×3 (09:27→18:00)
--- NOTE | 2018-12-01 09:35 | WOCRNPDOC ---
WOCRN Advanced Assessment Note - Skin Integrity Problem, Advanced Assess Right Fifth Toe Unknown Dressing Type: Hydrofera Blue Ready Dressing Description: Clean/Dry, Intact Exudate Amount: None Wound Bed Constitution: Granulation Tissue (60%), Adhered Slough (40%) Skin Integrity Problem Comment: Wound improved greatly. Callous mechanically debrided as it was softened with moisture. Cleaned with ns and gauze. Blanca Ag + to wound bed. Moistened with ns. Covered with HFB ready. Lacey RN will cover with tegaderm. Wound care will follow. Right Lower Calf Blister Dressing Type: Adaptic Touch, Kerlix Dressing Description: Clean/Dry, Intact Exudate Amount: Scant Exudate Characteristic(s): Sanguinous Integumentary Issue Intervention: Dressing Changed, Silver Gel Applied Jesika Wound Tissue: Hemosiderin Staining Wound Edges: Attached Site Measurement - Head-to-Toe Length X Width X Depth (cm): 1.5x1x0.1 Skin Integrity Problem Comment: Drained serous blister with roof intact. No sign of infection. Cleaned with ns and gauze. Skin prep jesika wound. Silvasorb to wound bed and covered with Adaptic touch. Lacey RN will cover with allevyn life.
--- NOTE | 2018-12-01 10:10 | SOAPPROG ---
SOAP Progress Note Assessment/Plan: Assessment/plan: 38 y/o M with DM and hx of cocaine abuse s/p R femoral-popliteal embolectomy and thrombectomy for acute ischemic leg x2 Large L atrium thrombus A-fib. Not a candidate for cardioversion due to thrombus in L atrium Appreciate. Cardiology input. Bilateral lower extremity arterial occlusions. Both feet warm on exam today. Excellent pedal pulses on doppler Bilateral renal occlusions. uop adequate and Cr nl. L flank pain stable Xarelto started. Ok to get up oob Continue chavez for aggressive diuresis S: No complaints. Denies pain. O: Alert Afebrile VSS, HDS Cardiac: irregularly irregular Chest: Ctab, no increased wob Abdomen: soft, nontender Bilateral lower extremities: 3+ edema throughout, red/purple skin color change, + pedal pulses on doppler, brisk cap refill. R 5th metatarsal with open wound. Xray negative for osteo. Wound appears clean with healthy granulation tissue. No tunneling. R groin dressing cdi 12/01/18 10:09 Objective: Vital Signs Temp Pulse Resp BP Pulse Ox 37.2 C 108 H 18 132/82 H 97 12/01/18 08:00 12/01/18 09:18 12/01/18 08:00 12/01/18 09:16 12/01/18 08:00 Laboratory Results 11/27/18 09:48 12/01/18 04:33 11/30/18 12/01/18 12/02/18 05:59 05:59 05:59 Intake Total 1892 1504 Output Total 7400 6000 Balance -6206 -9967 PT 16.9 SEC (12.0-15.0) H 11/28/18 05:55 INR 1.36 (0.83-1.16) H 11/28/18 05:55 ICD10 Worksheet Patient Problems: Problems Problem Status Onset Arterial embolism and thrombosis of lower extremity Acute Cardiomyopathy Acute Renal infarct Acute
--- NOTE | 2018-12-01 12:05 | SOAPPROG ---
SOAP Progress Note Assessment/Plan: Assessment: 38 y/o man with no previous cardiac and medical issues but regular ETOH and cocaine use came to ER with painful right leg and found to be in afib at 180bpm , CHF and clot in right leg arterial system and renal arteries bilateral. MOISES better defined true heart function with LVEF 22% and still large DIANA clot. His afib is better controlled and he is starting to have large amounts of IV diureses. He is still hypervolemic. PLAN" 1)start Lisinopril 10mg PO qam. 2)rest of meds without changes. 3)once nearing euvolemic state which could still be 3-4 days away would transition from IV lasix to PO Demadex 40mg PO BID 4)f/u CHF-[facility] one week after leaves [facility] whether to home or SNF which I suspect will be middle of next week. 12/01/18 12:02 Subjective: feels a little better. Able to get out of bed and walk in room with walker for 10-15ft. Denies CP, palpitations, near syncope or PND. Still lots of leg and scrotal edema. No TIA or bleeding sx. Objective: Vital Signs Temp Pulse Resp BP Pulse Ox 37.2 C 108 H 18 132/82 H 97 12/01/18 08:00 12/01/18 09:18 12/01/18 08:00 12/01/18 09:16 12/01/18 08:00 Laboratory Results 11/27/18 09:48 12/01/18 04:33 11/30/18 12/01/18 12/02/18 05:59 05:59 05:59 Intake Total 1892 1504 Output Total 7400 6000 1100 Balance -5508 -4496 -1100 PT 16.9 SEC (12.0-15.0) H 11/28/18 05:55 INR 1.36 (0.83-1.16) H 11/28/18 05:55 Physical Exam - Physical Exam General Appearance: alert, obese EENT: PERRL/EOMI Neck: full range of motion Respiratory: lungs clear Cardiac/Chest: edema, JVD, systolic murmur, irregularly irregular, No gallop Peripheral Pulses: 1+: femoral (R), femoral (L), dorsalis-pedis (R), dorsalis- pedis (L), 2+: carotid (R), carotid (L) Abdomen: non-tender, distended, No guarding, No rebound, No ascites Skin: warm/dry Extremities: pedal edema Neuro/Psych: alert ICD10 Worksheet Patient Problems: Problems Problem Status Onset Arterial embolism and thrombosis of lower extremity Acute Cardiomyopathy Acute Renal infarct Acute
[2018-12-01] MEDS: LISINOPRIL 10 MG TAB PO SCH (13:22)
--- NOTE | 2018-12-01 13:30 | HOSPPROG ---
Hospitalist Progress Note Assessment/Plan: 38-year-old man w arterial emboli 2/2 cardiac thrombus, dilated CMP, new dm systolic cardiomyopathy unclear etiology. EF low but poor visualization due to patient obesity. likely related to drug/alcohol use or, less likely, postviral cardiomyopathy. * On Coreg, Aldactone, IV Lasix, isosorbide and hydralazine aggressive diuresis- 4.5 L neg overnight!, 18 kg since admit still has a way to go follow met panel daily w diuresis unlikely ischemic but reasonable to do angiogram prior to dc suspect LVEF will improve, suggest repeating echo when more euvolemic necrotic toe: plain film w no osteo d/w dr fernandez left atrial thrombus with multiple emboli including left distal leg ischemia, bilateral renal artery occlusions. now on NOAc acute ischemic right leg with SFA occlusion, status post thrombectomy with pulses present. 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 * Continue to monitor renal function * stable today atrial fibrillation with rapid ventricular rate currently on anticoagulation and rate controlled with Dig and Coreg, * High risk for stroke or other emboli. * hr 100's today follow w diuresis diabetes with poor control. a1c 11 this is a new diagnosis this admission * Increase Lantus to 28 units daily, continue insulin sliding scale polysubstance abuse with alcohol and cocaine. Watch for withdrawal symptoms. none thus far acknowledges need for change dispo: inpt needs more diuresis Subjective: toe film w no osteo (interp by me). continued excellent diuresis Objective: Vital Signs Temp Pulse Resp BP Pulse Ox 37.2 C 135 H 15 127/82 H 88 L 12/01/18 08:00 12/01/18 12:15 12/01/18 11:30 12/01/18 13:22 12/01/18 12:15 Laboratory Results 11/27/18 09:48 12/01/18 04:33 11/30/18 12/01/18 12/02/18 05:59 05:59 05:59 Intake Total 1892 1504 540 Output Total 7400 6000 3200 Balance -0850 -3038 -4653 PT 16.9 SEC (12.0-15.0) H 11/28/18 05:55 INR 1.36 (0.83-1.16) H 11/28/18 05:55 - Physical Exam Constitutional: no apparent distress, appears nourished Eyes: PERRL, anicteric sclera Ears, Nose, Mouth, Throat: moist mucous membranes, hearing normal Cardiovascular: regular rate and rhythym, no murmur, rub, or gallop, edema Respiratory: no respiratory distress, no rales or rhonchi Gastrointestinal: normoactive bowel sounds, soft, non-tender abdomen Genitourinary: no bladder fullness, No chavez in urethra Skin: warm, normal color Musculoskeletal: full muscle strength Neurologic: AAOx3 ICD10 Worksheet Patient Problems: Problems Problem Status Onset Arterial embolism and thrombosis of lower extremity Acute Cardiomyopathy Acute Renal infarct Acute
--- NOTE | 2018-12-01 16:52 | ASMTCMCOM ---
CM Note CM Note Notes: CM reviewed pts case. PT has cleared pt to d/c home without any needs. CM available for changes. Plan: Independent Date Signed: 12/01/2018 04:51 PM Electronically Signed By:BISI Jarrett
[2018-12-01] MEDS: MELATONIN 3 MG TAB PO SCH (21:00)
[2018-12-02] MEDS: morphINE PCA 30 MG/30 ML PCA IV PRN (03:47)
--- NOTE | 2018-12-02 08:56 | SOAPPROG ---
SOAP Progress Note Assessment/Plan: Assessment: SOAP Progress Note Assessment/Plan: Assessment: 38 y/o man with no previous cardiac and medical issues but regular ETOH and cocaine use came to ER with painful right leg and found to be in afib at 180bpm , CHF and clot in right leg arterial system and renal arteries bilateral. MOISES better defined true heart function with LVEF 22% and still large DIANA clot. His afib is better controlled and he is starting to have large amounts of IV diureses. He is still hypervolemic. PLAN" 1) continue Lisinopril 10mg PO qam. 2)rest of meds without changes.pt had a very good diuresis yesterday ..bun/ creat stable 3)once nearing euvolemic state which could still be 3-4 days away would transition from IV lasix to PO Demadex 40mg PO BID 4)f/u CHF-[facility] one week after leaves [facility] whether to home or SNF which I suspect will be middle of next week. Plan:1. no changes today 12/02/18 08:58 Subjective: pt is doing well..no cv c/o ..questions answered... Objective: Vital Signs Temp Pulse Resp BP Pulse Ox 36.3 C 127 H 18 117/91 H 96 12/02/18 08:00 12/02/18 08:00 12/02/18 08:00 12/02/18 08:00 12/02/18 08:00 Laboratory Results 11/27/18 09:48 12/02/18 03:10 12/01/18 12/02/18 12/03/18 05:59 05:59 05:59 Intake Total 1504 1275 Output Total 6000 6500 Balance -0678 -3435 PT 16.9 SEC (12.0-15.0) H 11/28/18 05:55 INR 1.36 (0.83-1.16) H 11/28/18 05:55 Physical Exam - Physical Exam Respiratory: lungs clear (anteriorly) Cardiac/Chest: regular rate, rhythm Peripheral Pulses: 2+: dorsalis-pedis (R), dorsalis-pedis (L) ICD10 Worksheet Patient Problems: Problems Problem Status Onset Arterial embolism and thrombosis of lower extremity Acute Cardiomyopathy Acute Renal infarct Acute
[2018-12-02] MEDS ORDERED: POLYETHYLENE GLYCOL 3350 17 GM PKT ONE (08:58)
[2018-12-02] MEDS: RIVAROXABAN 15 MG TAB PO SCH ×2 (09:06→18:16)
[2018-12-02] MEDS: FUROSEMIDE 40 MG/4 ML VIAL IVP SCH ×2 (09:06→15:02)
[2018-12-02] MEDS: SENNOSIDES/DOCUSATE SODIUM TAB PO SCH ×2 (09:06→21:51)
[2018-12-02] MEDS: THIAMINE HCL 100 MG TAB PO SCH (09:06)
[2018-12-02] MEDS: INSULIN GLARGINE 100 UNITS/ML UNIT SC SCH (09:06)
[2018-12-02] MEDS: MAGNESIUM OXIDE 400 MG TAB PO SCH ×3 (09:07→21:50)
[2018-12-02] MEDS: FAMOTIDINE 20 MG TAB PO SCH ×2 (09:07→21:50)
[2018-12-02] MEDS: INSULIN LISPRO 100 UNIT/ML SC SCH ×3 (09:07→18:16)
[2018-12-02] MEDS: LISINOPRIL 10 MG TAB PO SCH (09:07)
[2018-12-02] MEDS: CARVEDILOL 25 MG TAB PO SCH ×2 (09:07→18:16)
[2018-12-02] MEDS: ASPIRIN EC 81 MG TAB PO SCH (09:07)
[2018-12-02] MEDS: POLYETHYLENE GLYCOL 3350 17 GM PKT PO SCH (09:07)
[2018-12-02] MEDS: DIGOXIN 250 MCG TAB PO SCH (09:08)
[2018-12-02] MEDS: SPIRONOLACTONE 25 MG TAB PO SCH ×2 (09:08→21:50)
--- NOTE | 2018-12-02 10:48 | SOAPPROG ---
SOAP Progress Note Assessment/Plan: AssessmentAssessment/plan: 38 y/o M with DM and hx of cocaine abuse s/p R femoral-popliteal embolectomy and thrombectomy for acute ischemic leg x2 Palpable pedal pulses. Seen with Dr. Villa. Large L atrium thrombus A-fib. Not a candidate for cardioversion due to thrombus in L atrium Appreciate. Cardiology input. Bilateral lower extremity arterial occlusions. Both feet warm on exam today. Excellent pedal pulses on exam--palpable. Bilateral renal occlusions. uop adequate and Cr nl. L flank pain stable Xarelto started. Ok to get up oob Continue chavez for aggressive diuresis. S: No complaints. Denies pain. Sitting oob in chair. O: Alert Afebrile VSS, HDS Cardiac: irregularly irregular Chest: Ctab, no increased wob Abdomen: soft, nontender Bilateral lower extremities: 3+ edema throughout, red/purple skin color change, + pedal pulses on doppler, brisk cap refill. R 5th metatarsal with open wound. Xray negative for osteo. Wound appears clean with healthy granulation tissue. No tunneling. R groin dressing cdi 12/02/18 10:47 Objective: Vital Signs Temp Pulse Resp BP Pulse Ox 36.3 C 108 H 18 117/91 H 96 12/02/18 08:00 12/02/18 09:08 12/02/18 08:00 12/02/18 08:00 12/02/18 08:00 Laboratory Results 11/27/18 09:48 12/02/18 03:10 12/01/18 12/02/18 12/03/18 05:59 05:59 05:59 Intake Total 1504 1275 Output Total 6000 6500 Balance -7631 -6440 PT 16.9 SEC (12.0-15.0) H 11/28/18 05:55 INR 1.36 (0.83-1.16) H 11/28/18 05:55 ICD10 Worksheet Patient Problems: Problems Problem Status Onset Arterial embolism and thrombosis of lower extremity Acute Cardiomyopathy Acute Renal infarct Acute
--- NOTE | 2018-12-02 11:42 | HOSPPROG ---
Hospitalist Progress Note Assessment/Plan: 38-year-old man w arterial emboli 2/2 cardiac thrombus, dilated CMP, new dm systolic cardiomyopathy unclear etiology. EF low but poor visualization due to patient obesity. likely related to drug/alcohol use or, less likely, postviral cardiomyopathy. * On Coreg, Aldactone, IV Lasix, isosorbide and hydralazine aggressive diuresis- 5.5 L neg overnight!, 18 kg since admit still has a way to go follow met panel daily w diuresis unlikely ischemic but reasonable to do angiogram prior to dc suspect LVEF will improve, suggest repeating echo when more euvolemic necrotic toe: plain film w no osteo d/w dr fernandez left atrial thrombus with multiple emboli including left distal leg ischemia, bilateral renal artery occlusions. now on NOAc acute ischemic right leg with SFA occlusion, status post thrombectomy with pulses present. 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 * Continue to monitor renal function * stable today atrial fibrillation with rapid ventricular rate currently on anticoagulation and rate controlled with Dig and Coreg, * High risk for stroke or other emboli. * hr 100's today follow w diuresis diabetes with poor control. a1c 11 this is a new diagnosis this admission * Increase Lantus to 28 units daily, continue insulin sliding scale polysubstance abuse with alcohol and cocaine. Watch for withdrawal symptoms. none thus far acknowledges need for change dispo: inpt needs more diuresis Subjective: anpther day of excellent diuresis. 5.5 L neg. case d/w dr lr Objective: Vital Signs Temp Pulse Resp BP Pulse Ox 37.1 C 104 H 20 97/65 L 92 12/02/18 11:20 12/02/18 11:20 12/02/18 11:20 12/02/18 11:20 12/02/18 11:20 Laboratory Results 11/27/18 09:48 12/02/18 03:10 12/01/18 12/02/18 12/03/18 05:59 05:59 05:59 Intake Total 1504 1275 Output Total 6000 4840 3635 Balance -4496 -5242 -1950 PT 16.9 SEC (12.0-15.0) H 11/28/18 05:55 INR 1.36 (0.83-1.16) H 11/28/18 05:55 - Physical Exam Constitutional: no apparent distress, appears nourished Eyes: PERRL, anicteric sclera Ears, Nose, Mouth, Throat: moist mucous membranes, hearing normal Cardiovascular: regular rate and rhythym, no murmur, rub, or gallop, edema Respiratory: no respiratory distress, no rales or rhonchi Gastrointestinal: normoactive bowel sounds, soft, non-tender abdomen Genitourinary: chavez in urethra, other (scrotum still very edematous) Skin: warm, No normal color Musculoskeletal: full muscle strength, no muscle tenderness Neurologic: AAOx3 ICD10 Worksheet Patient Problems: Problems Problem Status Onset Arterial embolism and thrombosis of lower extremity Acute Cardiomyopathy Acute Renal infarct Acute
[2018-12-02] MEDS: MELATONIN 3 MG TAB PO SCH (21:50)
--- NOTE | 2018-12-03 09:00 | SOAPPROG ---
SOAP Progress Note Assessment/Plan: Assessment: SOAP Progress Note Assessment/Plan: Assessment: 38 y/o man with no previous cardiac and medical issues but regular ETOH and cocaine use came to ER with painful right leg and found to be in afib at 180bpm , CHF and clot in right leg arterial system and renal arteries bilateral. MOISES better defined true heart function with LVEF 22% and still large DIANA clot. His afib is better controlled and he is starting to have large amounts of IV diureses. He is still hypervolemic. PLAN" 1) continue Lisinopril 10mg PO qam. 2)rest of meds without changes.pt had a very good diuresis yesterday .will check bun/creat tomorrow 3)once nearing euvolemic state which could still be 3-4 days away would transition from IV lasix to PO Demadex 40mg PO BID 4)f/u [facility]F-[facility] one week after leaves [facility] whether to home or SNF which I suspect will be middle of next week. Plan:1. no changes today 12/02/18 08:58 12/03/18 09:01 Subjective: pt doing well ..diuresing well ..no cv c/o Objective: Vital Signs Temp Pulse Resp BP Pulse Ox 37.3 C 105 H 18 133/71 H 91 L 12/03/18 07:27 12/03/18 07:27 12/03/18 07:27 12/03/18 07:27 12/03/18 07:27 Laboratory Results 11/27/18 09:48 12/03/18 05:30 12/02/18 12/03/18 12/04/18 05:59 05:59 05:59 Intake Total 1275 480 Output Total 6500 4628 Balance -5251 -8223 PT 16.9 SEC (12.0-15.0) H 11/28/18 05:55 INR 1.36 (0.83-1.16) H 11/28/18 05:55 Physical Exam - Physical Exam Respiratory: lungs clear (anteroirly) Cardiac/Chest: irregularly irregular Extremities: pedal edema (improving) ICD10 Worksheet Patient Problems: Problems Problem Status Onset Arterial embolism and thrombosis of lower extremity Acute Cardiomyopathy Acute Renal infarct Acute
[2018-12-03] MEDS ORDERED: INSULIN GLARGINE 100 UNITS/ML UNIT SC SCH (09:25)
--- NOTE | 2018-12-03 09:38 | HOSPPROG ---
Hospitalist Progress Note Assessment/Plan: 38-year-old man w arterial emboli 2/2 cardiac thrombus, dilated CMP, new dm systolic cardiomyopathy unclear etiology. EF low but poor visualization due to patient obesity. likely related to drug/alcohol use or, less likely, postviral cardiomyopathy. * On Coreg, Aldactone, IV Lasix, isosorbide and hydralazine aggressive diuresis- 4.5 L neg overnight!, > 20 kg since admit still has a way to go follow met panel daily w diuresis unlikely ischemic but reasonable to do angiogram prior to dc suspect LVEF will improve, suggest repeating echo when more euvolemic chavez: attempt removal 12/04 necrotic toe: plain film w no osteo d/w dr fernandez left atrial thrombus with multiple emboli including left distal leg ischemia, bilateral renal artery occlusions. now on NOAc acute ischemic right leg with SFA occlusion, status post thrombectomy with pulses present. 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 * Continue to monitor renal function * stable today atrial fibrillation with rapid ventricular rate currently on anticoagulation and rate controlled with Dig and Coreg, * High risk for stroke or other emboli. * hr 100's today follow w diuresis diabetes with poor control. a1c 11 this is a new diagnosis this admission * Increase Lantus to 32 units daily, continue insulin sliding scale polysubstance abuse with alcohol and cocaine. Watch for withdrawal symptoms. none thus far acknowledges need for change dispo: inpt needs more diuresis Subjective: case discussed w dr lr. continued excellent diuresis Objective: Vital Signs Temp Pulse Resp BP Pulse Ox 37.3 C 105 H 18 133/71 H 91 L 12/03/18 07:27 12/03/18 07:27 12/03/18 07:27 12/03/18 07:27 12/03/18 07:27 Laboratory Results 11/27/18 09:48 12/03/18 05:30 12/02/18 12/03/18 12/04/18 05:59 05:59 05:59 Intake Total 1275 480 Output Total 6500 4625 Balance -5225 -4145 PT 16.9 SEC (12.0-15.0) H 11/28/18 05:55 INR 1.36 (0.83-1.16) H 11/28/18 05:55 - Physical Exam Constitutional: no apparent distress, appears nourished Eyes: PERRL, anicteric sclera Ears, Nose, Mouth, Throat: moist mucous membranes, hearing normal Cardiovascular: regular rate and rhythym, no murmur, rub, or gallop Respiratory: no respiratory distress, no rales or rhonchi, No inspiratory crackles Gastrointestinal: normoactive bowel sounds, soft, non-tender abdomen Genitourinary: other (decreased scrotal swelling) Skin: warm, other (chronic venous stasis changes) Musculoskeletal: full muscle strength, no muscle tenderness Neurologic: AAOx3 ICD10 Worksheet Patient Problems: Problems Problem Status Onset Arterial embolism and thrombosis of lower extremity Acute Cardiomyopathy Acute Renal infarct Acute
[2018-12-03] MEDS: INSULIN LISPRO 100 UNIT/ML SC SCH ×3 (10:11→18:33)
[2018-12-03] MEDS: FUROSEMIDE 40 MG/4 ML VIAL IVP SCH ×2 (10:11→15:50)
[2018-12-03] MEDS: THIAMINE HCL 100 MG TAB PO SCH (10:11)
[2018-12-03] MEDS: RIVAROXABAN 15 MG TAB PO SCH ×2 (10:12→18:33)
[2018-12-03] MEDS: ASPIRIN EC 81 MG TAB PO SCH (10:12)
[2018-12-03] MEDS: SPIRONOLACTONE 25 MG TAB PO SCH ×2 (10:12→21:44)
[2018-12-03] MEDS: DIGOXIN 250 MCG TAB PO SCH (10:12)
[2018-12-03] MEDS: MAGNESIUM OXIDE 400 MG TAB PO SCH ×3 (10:12→21:44)
[2018-12-03] MEDS: CARVEDILOL 25 MG TAB PO SCH ×2 (10:12→18:33)
[2018-12-03] MEDS: LISINOPRIL 10 MG TAB PO SCH (10:12)
[2018-12-03] MEDS: SENNOSIDES/DOCUSATE SODIUM TAB PO SCH ×2 (10:12→21:47)
[2018-12-03] MEDS: POLYETHYLENE GLYCOL 3350 17 GM PKT PO SCH (10:13)
[2018-12-03] MEDS: FAMOTIDINE 20 MG TAB PO SCH (11:28)
[2018-12-03] MEDS: INSULIN GLARGINE 100 UNITS/ML UNIT SC SCH ×2 (11:28→12:10)
[2018-12-03] MEDS: MELATONIN 3 MG TAB PO SCH (21:44)
[2018-12-04] MEDS ORDERED: morphINE PCA 30 MG/30 ML PCA IV PRN (02:03)
[2018-12-04] MEDS: LORazepam 1 MG TAB PO PRN ×3 (02:05→21:22)
[2018-12-04] MEDS: ACETAMINOPHEN 325 MG TAB PO PRN (02:08)
[2018-12-04] MEDS: CARVEDILOL 25 MG TAB PO SCH ×2 (08:49→18:12)
[2018-12-04] MEDS: SENNOSIDES/DOCUSATE SODIUM TAB PO SCH ×2 (08:49→21:16)
[2018-12-04] MEDS: THIAMINE HCL 100 MG TAB PO SCH (08:49)
[2018-12-04] MEDS: ASPIRIN EC 81 MG TAB PO SCH (08:50)
[2018-12-04] MEDS: SPIRONOLACTONE 25 MG TAB PO SCH ×2 (08:50→21:16)
[2018-12-04] MEDS: LISINOPRIL 10 MG TAB PO SCH (08:50)
[2018-12-04] MEDS: FUROSEMIDE 40 MG/4 ML VIAL IVP SCH ×2 (08:50→14:52)
[2018-12-04] MEDS: MAGNESIUM OXIDE 400 MG TAB PO SCH ×3 (08:50→21:16)
[2018-12-04] MEDS: RIVAROXABAN 15 MG TAB PO SCH ×2 (08:51→18:12)
[2018-12-04] MEDS: POLYETHYLENE GLYCOL 3350 17 GM PKT PO SCH (08:51)
[2018-12-04] MEDS: INSULIN LISPRO 100 UNIT/ML SC SCH ×3 (08:52→18:17)
[2018-12-04] MEDS: INSULIN GLARGINE 100 UNITS/ML UNIT SC SCH (08:52)
--- NOTE | 2018-12-04 09:04 | SOAPPROG ---
SOAP Progress Note Assessment/Plan: Assessment/plan: 38 y/o M with DM and hx of cocaine abuse s/p R femoral-popliteal embolectomy and thrombectomy for acute ischemic leg x2 Large L atrium thrombus A-fib. Not a candidate for cardioversion due to thrombus in L atrium Appreciate. Cardiology input. Bilateral lower extremity arterial occlusions. Both feet warm on exam today. Excellent pedal pulses on doppler Bilateral renal occlusions. uop adequate and Cr nl. L flank pain stable Xarelto started. Ok to get up oob Continue chavez for aggressive diuresis S: Becomes teary talking about pain in BLE after chela wrap application. Pain somewhat improved now after removal. O: Alert Afebrile VSS, HDS Cardiac: irregularly irregular Chest: Ctab, no increased wob Abdomen: soft, nontender Bilateral lower extremities: 3+ edema throughout, red/purple skin color change, + pedal pulses on doppler, brisk cap refill. R 5th metatarsal with open wound. Xray negative for osteo. Wound appears clean with healthy granulation tissue. No tunneling. R groin dressing cdi 12/04/18 09:03 Objective: Vital Signs Temp Pulse Resp BP Pulse Ox 36.8 C 98 18 133/78 H 98 12/04/18 08:00 12/04/18 08:00 12/04/18 08:00 12/04/18 08:00 12/04/18 08:00 Laboratory Results 11/27/18 09:48 12/04/18 03:10 12/03/18 12/04/18 12/05/18 05:59 05:59 05:59 Intake Total 413 7265 Output Total 6925 5659 Balance -4143 -4044 PT 16.9 SEC (12.0-15.0) H 11/28/18 05:55 INR 1.36 (0.83-1.16) H 11/28/18 05:55 ICD10 Worksheet Patient Problems: Problems Problem Status Onset Arterial embolism and thrombosis of lower extremity Acute Cardiomyopathy Acute Renal infarct Acute
[2018-12-04] MEDS: DIGOXIN 250 MCG TAB PO SCH (10:05)
--- NOTE | 2018-12-04 10:24 | PDCARPN ---
Cardiology Progress Note Chief Complaint: Patient reports significant pain in right groin when getting up to chair. Assessment/Plan: Assessment: New patient to me, chart review completed. 38-year-old male with no previous cardiac or medical issues, with regular ETOH and cocaine use a minute on 2018 for pain in right leg, found to be in AFib with RVR (ventricular rates up to 80 BPM), CHF, and clot in left atrial system and renal arteries bilateral. Echocardiogram done on 11/23/2018 showing reduced LV systolic function. MOISES done on 11/26/2018 noting severely reduce LV systolic function, with EF 20-25% severe global hypokinesis, no thrombus in LV, aneurysm intra-atrial septum with small PFO. Mobile left atrial appendage thrombus measuring approximately 1.26 cm x 1.63 cm. [id number] MR, mild TR. Underwent right femoral popliteal embolectomy and thrombectomy for acute ischemic legs x2. 12/04/2018: Patient reports continuation groin pain, especially with movement. Pain control SISTER SUPERIOR. O>I, weight today 165.5 kilos. Laboratories showing sodium 134, potassium 4.2, BUN 13, creatinine 0.5. Magnesium 2.0. BNP improved from admission (11/23 5220 today 12/04 2150). Patient reports no chest pressure or pain. Reports mild shortness of breath. Plan: 1. Cardiomyopathy: EF 20-25% by MIOSES. Ischemia has not been ruled out. Noted to have mildly bumped troponins on admission. More likely cause from excessive rate due to AFib, and drug/alcohol use. Started on carvedilol, Aldactone, and lisinopril. Denying symptoms suggesting of cardiac ischemia. Discussed cardiac ischemic workup with Dr. Reyez, Will repeat troponin today, to assure on downward decline. Poor candidate for coronary angiogram at this time unless patient is having active symptoms of ischemia, due to recent thrombotic events, left atrial thrombus, and need to be on full anticoagulation. Patient poor candidate for coronary CTA due to AFib with rates unable to go less than 60 BPM. Continue medical treatment with carvedilol, aspirin, lisinopril, and Aldactone. Consider outpatient Yolanda MPI study. 2. Systolic heart failure: Patient continues to diuresed with IV Lasix. No significant bump in BUN creatinine. In next day or 2, consideration of switching him over to torsemide at 40 mg p.o. Twice daily. 3. Persistent atrial fibrillation: Rate fairly well controlled on carvedilol and digoxin (rates 90s to 100s, increased to 150 when in pain and moving to chair). Patient not a candidate for cardioversion due to left atrial appendage thrombus. Continue on Xarelto. Repeat digit level in a.m.. 4. 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 Continue to monitor. 5. Acute ischemic leg with SFA occlusion: Status post thrombectomy with pulses present. Patient has been cleared by surgery to sit in chair. Pain management per surgery and hospitalist services. 6. EtOH and cocaine abuse: Patient should abstain. 12/04/18 10:22 Subjective: Reports no chest pressure or pain. Reports mild SOB. Denies of any orthopnea, PND. Ongoing pain at right groin, worsen with movement. Reviewed/Discussed With: other (Dr Reyez) Objective: Vital Signs (8 Hrs) Temp Pulse Resp BP Pulse Ox 12/04/18 10:05 112 H 12/04/18 08:00 36.8 C 98 18 133/78 H 98 12/04/18 04:00 37.4 C 103 H 16 130/85 H 95 12/04/18 03:25 20 95 12/04/18 03:15 20 76 L Intake/Output (24 Hrs) 12/03/18 12/04/18 12/05/18 05:59 05:59 05:59 Intake Total 480 1571 Output Total 4625 5675 Balance -4121 -8911 Intake: Oral (ml) 480 1450 IV Intake (ml) 115 IV Infused (ml) 6 morphINE SISTER SUPERIOR See Protocol 6 IV PRN PRN Rx#: [id number] Output: Urine (ml) 4625 5675 Catheter 4625 5675 Other: Weight 166.9 kg 165.5 kg Number of Stools Catheter 1 1 Result Diagrams: 11/27/18 09:48 12/04/18 03:10 - Physical Exam Constitutional: no apparent distress, obese (Morbidly) Ears, Nose, Mouth, Throat: moist mucous membranes Cardiovascular: no rubs, no gallops, irregularly irregular, jugular vein distention (4-5 cm above sternal notch), No carotid bruit Peripheral Pulses: 1+: dorsalis-pedis (R), dorsalis-pedis (L), 2+: carotid (R), carotid (L) Respiratory: other (Diminished in bases bilateral, no rhonchi, rales, or wheezing noted.) Gastrointestinal: normoactive bowel sounds Skin: warm, No no edema (+3 peripheral edema bilateral lower extremities to thighs. Dressing to right lower extremity clean dry intact.) Neurologic: AAOx3 Psychiatric: cooperative, interactive, following commands ICD10 Worksheet Patient Problems: Problems Problem Status Onset Cardiomyopathy Acute Arterial embolism and thrombosis of lower extremity Acute Renal infarct Acute
--- NOTE | 2018-12-04 13:09 | HOSPPROG ---
Hospitalist Progress Note Assessment/Plan: 38-year-old man w arterial emboli 2/2 cardiac thrombus, dilated CMP, new dm systolic cardiomyopathy unclear etiology. EF low but poor visualization due to patient obesity. likely related to drug/alcohol use or, less likely, postviral cardiomyopathy. * On Coreg, Aldactone, IV Lasix, isosorbide and hydralazine diuresis may be slowing down continue current plan, follow labs chavez: remove today necrotic toe: plain film w no osteo d/w dr fernandez left atrial thrombus with multiple emboli including left distal leg ischemia, bilateral renal artery occlusions. now on NOAc acute ischemic right leg with SFA occlusion, status post thrombectomy with pulses present. 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 * Continue to monitor renal function * stable today atrial fibrillation with rapid ventricular rate currently on anticoagulation and rate controlled with Dig and Coreg, * High risk for stroke or other emboli. * hr 100's today follow w diuresis diabetes with poor control. a1c 11 this is a new diagnosis this admission * Increase Lantus to 32 units daily, continue insulin sliding scale * may need further increase 12/05 polysubstance abuse with alcohol and cocaine. Watch for withdrawal symptoms. none thus far acknowledges need for change dispo: inpt needs more diuresis Subjective: case d/w mian paola, cardiology IRRIGATION MANAGER. continued diuresis Objective: Vital Signs Temp Pulse Resp BP Pulse Ox 36.8 C 107 H 18 104/61 91 L 12/04/18 12:00 12/04/18 12:00 12/04/18 12:00 12/04/18 12:00 12/04/18 12:00 Laboratory Results 11/27/18 09:48 12/04/18 03:10 12/03/18 12/04/18 12/05/18 05:59 05:59 05:59 Intake Total 480 5040 740 Output Total 3400 1420 1934 Balance -6903 -0340 -7689 PT 16.9 SEC (12.0-15.0) H 11/28/18 05:55 INR 1.36 (0.83-1.16) H 11/28/18 05:55 - Physical Exam Constitutional: no apparent distress Eyes: PERRL Ears, Nose, Mouth, Throat: moist mucous membranes, hearing normal Cardiovascular: no murmur, rub, or gallop, irregularly irregular Respiratory: no respiratory distress, no rales or rhonchi Gastrointestinal: normoactive bowel sounds, soft, non-tender abdomen Genitourinary: chavez in urethra, other (scrotum much less edematous) Skin: warm, other (chronic venous stasis changes) Musculoskeletal: full muscle strength ICD10 Worksheet Patient Problems: Problems Problem Status Onset Arterial embolism and thrombosis of lower extremity Acute Cardiomyopathy Acute Renal infarct Acute
--- NOTE | 2018-12-04 15:06 | ASMTCMCOM ---
CM Note CM Note Notes: CM reviewed chart and met with pt to assess ETOH and substance use. Pt reports that he wants to remain clean and is open to resources and linkage in the community prior to discharge. 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 CM to follow-up with resources and information about linkage in the community. Pt interested in case management services as well. CM to assess what resources are available that accept his insurance. Plan: Likely home independent with outpatient linkages. Date Signed: 12/04/2018 03:05 PM Electronically Signed By:BISI Lerma
--- NOTE | 2018-12-04 15:07 | ASMTCAGE ---
CAGE Do you feel you ought to Answers: Yes cut down on your drinking or drug use? Do people annoy you by Answers: Yes criticizing your drinking or drug use? Do you feel guilty about Answers: Yes your drinking or drug use? Do you drink or use drugs Answers: No first thing in the morning (Eye Nurseryman Assistant)? Additional Comments Pt interested in resources and outpatient linkage. Date Signed: 12/04/2018 03:06 PM Electronically Signed By:BISI Lerma
[2018-12-04] MEDS: MELATONIN 3 MG TAB PO SCH (21:16)
--- NOTE | 2018-12-04 21:49 | CPEKG ---
Test Reason : OPEN Blood Pressure : / mmHG Vent. Rate : 109 BPM Atrial Rate : 000 BPM P-R Int : 160 ms QRS Dur : 090 ms QT Int : 369 ms P-R-T Axes : 000 099 174 degrees QTc Int : 498 ms Atrial fibrillation Probable anterior infarct, age indeterminate Low voltage QRS Confirmed by Tony Kelly ([id number] on 12/04/2018 9:49:13 PM Referred By: Mulugeta Harkins Confirmed By:Tony Kelly
[2018-12-05] MEDS: CARVEDILOL 25 MG TAB PO SCH ×2 (09:35→17:07)
[2018-12-05] MEDS: INSULIN GLARGINE 100 UNITS/ML UNIT SC SCH (09:35)
[2018-12-05] MEDS: INSULIN LISPRO 100 UNIT/ML SC SCH ×3 (09:35→18:13)
[2018-12-05] MEDS: RIVAROXABAN 15 MG TAB PO SCH ×2 (09:35→17:11)
[2018-12-05] MEDS: FUROSEMIDE 40 MG/4 ML VIAL IVP SCH (09:35)
[2018-12-05] MEDS: DIGOXIN 250 MCG TAB PO SCH (09:36)
[2018-12-05] MEDS: THIAMINE HCL 100 MG TAB PO SCH (09:36)
[2018-12-05] MEDS: SENNOSIDES/DOCUSATE SODIUM TAB PO SCH ×2 (09:36→21:35)
[2018-12-05] MEDS: LORazepam 1 MG TAB PO PRN (09:36)
[2018-12-05] MEDS: SPIRONOLACTONE 25 MG TAB PO SCH ×2 (09:36→21:35)
[2018-12-05] MEDS: LISINOPRIL 10 MG TAB PO SCH (09:36)
[2018-12-05] MEDS: MAGNESIUM OXIDE 400 MG TAB PO SCH ×3 (09:36→21:35)
[2018-12-05] MEDS: POLYETHYLENE GLYCOL 3350 17 GM PKT PO SCH (09:37)
[2018-12-05] MEDS: ASPIRIN EC 81 MG TAB PO SCH (09:37)
[2018-12-05] MEDS ORDERED: CARVEDILOL 25 MG TAB PO ONE (10:20)
[2018-12-05] MEDS ORDERED: TORSEMIDE 20 MG TAB PO SCH (11:15)
--- NOTE | 2018-12-05 11:23 | PDCARPN ---
Cardiology Progress Note Chief Complaint: Patient reports continue have pain in right groin, but ultimately feeling better. Assessment/Plan: Assessment: 38-year-old male with no previous cardiac or medical issues, with regular ETOH and cocaine use. Admitted on 11/23/2018 for pain in right leg, found to be in AFib with RVR (ventricular rates up to 80 BPM), CHF, and clot in left atrial system and renal arteries bilateral. Echocardiogram done on 11/23/2018 showing reduced LV systolic function. MOISES done on 11/26/2018 noting severely reduce LV systolic function, with EF 20-25% severe global hypokinesis, no thrombus in LV, aneurysm intra-atrial septum with small PFO. Mobile left atrial appendage thrombus measuring approximately 1.26 cm x 1.63 cm. Xtug-oo-gdnjwetn MR, mild TR. Underwent right femoral popliteal embolectomy and thrombectomy for acute ischemic legs x2. 12/05/2018: Patient reporting shortness of breath has improved. Continue due to see improvement with peripheral edema in his lower extremities. Pain is well controlled. Patient maintains AFib, noting rate within normal limits at rest, but with exertion (up in chair), rates up to 120 BPM. No other malignant arrhythmias noted. Laboratory studies noting BUN of 12, creatinine of 0.5. Output greater than input. Weight is down 2.1 kilos from yesterday. JVD 4-5 cm at a 45 degree angle. Lungs are clear, with no rales, rhonchi, or wheezing. Troponin level done yesterday was 0.013. Plan: 1. Cardiomyopathy: EF 20-25% by MOISES. Ischemia has not been ruled out. Noted to have mildly bumped troponins on admission. Normal troponin today. More likely cause from excessive rate due to AFib, and drug/alcohol use. Started on carvedilol, Aldactone, and lisinopril. Denying symptoms suggesting of cardiac ischemia. Echo noted reduced EF 20-25%, but with no wall motion abnormalities, global hypokinesis. Discussed cardiac ischemic workup with Dr. Reyez. Poor candidate for coronary angiogram at this time unless patient is having active symptoms of ischemia, due to recent thrombotic events (occlusion to SFA and renal infarct), left atrial thrombus, and need to be on full anticoagulation. Patient poor candidate for coronary CTA due to AFib with rates unable to go less than 60 BPM. Continue medical treatment with carvedilol, aspirin, lisinopril, and Aldactone. Will plan Yolanda MPI study as an outpatient. Will need repeated echocardiogram in 2-3 months, for re-evaluation with med management. 2. Systolic heart failure: Patient continues to diuresed with IV Lasix. No significant bump in BUN creatinine. Will transition over to torsemide 40 mg p.o. Twice daily. 3. Persistent atrial fibrillation: Elevated rates with exertion. Will increase his carvedilol up to 50 mg p.o. Twice daily. Continue on current digoxin, level done today within normal limits. Patient not a candidate for cardioversion due to left atrial appendage thrombus. Continue on Xarelto. Consider of cardioversion with MOISES in the next 4-6 week after the institution of anticoagulation therapy. 4. 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 Continue to monitor. 5. Acute ischemic leg with SFA occlusion: Status post thrombectomy with pulses present. Patient has been cleared by surgery to sit in chair. Pain management and activity restriction per surgery and hospitalist services. 6. EtOH and cocaine abuse: Patient should abstain. Per discharge planning, patient will be referred to substance abuse treatment as an outpatient upon discharge 12/05/18 11:16 Subjective: Reports no chest pain or pressure. Feels shortness of breath has improved. Denies of any orthopnea, PND, lightheadedness, near-syncope or syncopal events. Reports no symptoms suggestive of TIA or CVA. Denies of any bleeding issues. 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 See Protocol 6 IV PRN PRN Rx#: [id number] Output: Urine (ml) 5675 6400 1575 Catheter 5675 5700 Urinal 700 1575 Other: Weight 166.9 kg 165.5 kg 163.4 kg Number of Voids Urinal 1 Number of Stools Catheter 1 Toilet 1 Result Diagrams: 11/27/18 09:48 12/05/18 06:35 Cardiac Labs: Cardiac Lab Results (72 Hrs) 12/04/18 10:22 Troponin I 0.013 - Physical Exam Constitutional: no apparent distress, obese (Morbidly) Ears, Nose, Mouth, Throat: moist mucous membranes Cardiovascular: no murmurs, no rubs, irregularly irregular, jugular vein distention (4-5 cm above sternal notch), pulses symmetric bilat, No carotid bruit Peripheral Pulses: 1+: dorsalis-pedis (R), dorsalis-pedis (L), 2+: carotid (R), carotid (L) Respiratory: other (Lungs are clear, diminished in bases. No rhonchi, rales, wheezing noted. No accessary muscle use, no intercostal muscle retraction noted.) Gastrointestinal: normoactive bowel sounds, no masses Skin: warm, other (Right groin dressing, clean dry and intact.), No no edema (+ 3 peripheral edema bilateral lower extremities to knees) Neurologic: AAOx3 Psychiatric: cooperative, interactive, following commands ICD10 Worksheet Patient Problems: Problems Problem Status Onset Cardiomyopathy Acute Arterial embolism and thrombosis of lower extremity Acute Renal infarct Acute
[2018-12-05] MEDS ORDERED: traMADol 50 MG TAB PO PRN (12:51)
[2018-12-05] MEDS ORDERED: HYDROmorphONE/DILAUDID 1 MG/ML INJ IVP PRN (12:51)
[2018-12-05] MEDS: oxyCODONE IR 5 MG TAB PO PRN ×3 (13:46→21:36)
--- NOTE | 2018-12-05 14:23 | ASMTCMCOM ---
CM Note CM Note Notes: CM met with pt, provided with resources on sobriety. Pt provided education on scheduling follow-up with [facility]/ various substance abuse resources and pt reports he will ask for assistance if needed. Pt reports he is appreciative of information. Pt has been cleared by PT/OT, will likely discharge independently. CM available if needs arise. Plan: Independent once medically stable. Date Signed: 12/05/2018 02:22 PM Electronically Signed By:BISI Lerma
[2018-12-05] MEDS: TORSEMIDE 20 MG TAB PO SCH (15:42)
--- NOTE | 2018-12-05 17:05 | SOAPPROG ---
ISATU Progress Note Assessment/Plan: AssessmentAssessment/plan: 38 y/o M with DM and hx of cocaine abuse s/p R femoral-popliteal embolectomy and thrombectomy for acute ischemic leg x2 Palpable pedal pulses. R groin inc ok. Doing well from surgical standpoint. Still diuresing. Appreciate medicine and cards input. F/u c Alanis in 1 week once d/c'ed. Summary: Large L atrium thrombus A-fib. Not a candidate for cardioversion due to thrombus in L atrium Appreciate. Cardiology input. Bilateral lower extremity arterial occlusions. Both feet warm on exam today. Excellent pedal pulses on exam--palpable. Bilateral renal occlusions. Uop adequate and Cr nl. L flank pain improved. Xarelto started. Ok to get up oob. Foster is out. S: No complaints. Denies pain. Sitting oob in chair. O: see above, alert, nad, sitting up in chair, sometimes tearful. 12/05/18 17:02 Objective: Vital Signs Temp Pulse Resp BP Pulse Ox 37.3 C 102 H 20 105/73 91 L 12/05/18 15:12 12/05/18 15:12 12/05/18 15:12 12/05/18 15:12 12/05/18 15:12 Laboratory Results 11/27/18 09:48 12/05/18 06:35 12/04/18 12/05/18 12/06/18 05:59 05:59 05:59 Intake Total 1571 1665 400 Output Total 5642 6400 1925 [facility]8114 -5588 -1525 PT 16.9 SEC (12.0-15.0) H 11/28/18 05:55 INR 1.36 (0.83-1.16) H 11/28/18 05:55 ICD10 Worksheet Patient Problems: Problems Problem Status Onset Arterial embolism and thrombosis of lower extremity Acute Cardiomyopathy Acute Renal infarct Acute
--- NOTE | 2018-12-05 19:58 | HOSPPROG ---
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0) H 11/28/18 05:55 INR 1.36 (0.83-1.16) H 11/28/18 05:55 - Physical Exam Constitutional: no apparent distress, appears nourished, not in pain Cardiovascular: regular rate and rhythym, no murmur, rub, or gallop Respiratory: no respiratory distress, no rales or rhonchi, clear to auscultation Gastrointestinal: normoactive bowel sounds, soft, non-tender abdomen, no palpable masses Skin: no rashes or abrasions, no fluctuance, no induration Neurologic: AAOx3, sensation intact bilaterally Psychiatric: interacting appropriately, not anxious, not encephalopathic, thought process linear ICD10 Worksheet Patient Problems: Problems Problem Status Onset Cardiomyopathy Acute Arterial embolism and thrombosis of lower extremity Acute Renal infarct Acute
[2018-12-05] MEDS: MELATONIN 3 MG TAB PO SCH (21:35)
[2018-12-06 06:56] LABS: PLATELET COUNT 375 10^3/uL (150-400)
[2018-12-06] MEDS: INSULIN LISPRO 100 UNIT/ML SC SCH ×3 (07:24→18:17)
[2018-12-06] MEDS: oxyCODONE IR 5 MG TAB PO PRN ×5 (08:06→21:59)
[2018-12-06] MEDS: TORSEMIDE 20 MG TAB PO SCH ×2 (09:32→15:13)
[2018-12-06] MEDS: THIAMINE HCL 100 MG TAB PO SCH (09:32)
[2018-12-06] MEDS: LISINOPRIL 10 MG TAB PO SCH (09:33)
[2018-12-06] MEDS: SENNOSIDES/DOCUSATE SODIUM TAB PO SCH ×2 (09:33→21:59)
[2018-12-06] MEDS: ASPIRIN EC 81 MG TAB PO SCH (09:33)
[2018-12-06] MEDS: RIVAROXABAN 15 MG TAB PO SCH ×2 (09:33→17:57)
[2018-12-06] MEDS: SPIRONOLACTONE 25 MG TAB PO SCH (09:34)
[2018-12-06] MEDS: CARVEDILOL 25 MG TAB PO SCH ×2 (09:34→17:57)
[2018-12-06] MEDS: INSULIN GLARGINE 100 UNITS/ML UNIT SC SCH (09:34)
[2018-12-06] MEDS: MAGNESIUM OXIDE 400 MG TAB PO SCH ×3 (09:34→21:53)
--- NOTE | 2018-12-06 09:58 | SOAPPROG ---
ISATU Progress Note Assessment/Plan: AssessmentAssessment/plan: 38 y/o M with DM and hx of cocaine abuse s/p R femoral-popliteal embolectomy and thrombectomy for acute ischemic leg x2 C/o new R posterior knee pain. Could be musculoskeletal, but want to r/o DVT ( unlikely since on xarelto) or other problem. Will get RLE US. Arteries appear patent on exam--palpable pedal pulses. R groin inc ok. Still diuresing. F/u c Zeke in 1 week once d/c'ed. Summary: Large L atrium thrombus A-fib. Bilateral lower extremity arterial occlusions. Bilateral renal occlusions. Xarelto started. Ok to get up oob. S:c/o new posterior R knee pain. "I couldn't even walk with PT." O: alert,nad mmm, no jaundice ctab anteriorly rrr abd soft, obese inc cdi +Posterior thigh ecchymosis, no obvious knee swelling or redness palpable pedal pulses--had to find with doppler, but then once located thru edema able to palpate. 12/06/18 09:54 Objective: Vital Signs Temp Pulse Resp BP Pulse Ox 37.4 C 103 H 18 119/69 90 L 12/06/18 07:42 12/06/18 07:42 12/06/18 07:42 12/06/18 07:42 12/06/18 07:42 Laboratory Results 12/06/18 06:25 12/06/18 06:25 12/05/18 12/06/18 12/07/18 05:59 05:59 05:59 Intake Total 1665 1250 Output Total 7220 6725 Balance -7295 -6565 PT 16.9 SEC (12.0-15.0) H 11/28/18 05:55 INR 1.36 (0.83-1.16) H 11/28/18 05:55 ICD10 Worksheet Patient Problems: Problems Problem Status Onset Arterial embolism and thrombosis of lower extremity Acute Cardiomyopathy Acute Renal infarct Acute
[2018-12-06] MEDS: POLYETHYLENE GLYCOL 3350 17 GM PKT PO SCH (10:31)
[2018-12-06] MEDS: DIGOXIN 250 MCG TAB PO SCH (11:25)
[2018-12-06] MEDS: ACETAMINOPHEN 325 MG TAB PO PRN (11:25)
[2018-12-06] MEDS ORDERED: DIGOXIN 500 MCG/2 ML AMP IVP ONE (11:48)
--- NOTE | 2018-12-06 13:53 | WOCRNPDOC ---
WOCRN Advanced Assessment Note - Skin Integrity Problem, Advanced Assess Right Fifth Toe Unknown Dressing Type: Hydrofera Blue Ready, Promogran Ag+, Tegaderm Film Dressing Description: Clean/Dry, Intact Integumentary Issue Intervention: Dressing Changed, Mechanical Debridement ( some callous removed with gauze) Jesika Wound Tissue: Macerated (minimally), Calloused Jesika Wound Swelling: None Wound Bed Constitution: Granulation Tissue Wound Edges: Epithelizing Site Measurement - Head-to-Toe Length X Width X Depth (cm): 1.7x1.6x0.2 Skin Integrity Problem Comment: Wound healing well, no concerns. Will continue POC. Hydrofera Blue Ready had not turned to white so wear time will be increased. Cleaned wound with gauze and saline; mechanically debrided some softened callous. Moistened felice with normal saline, Hydrofera Blue Ready applied and covered with Tegaderm. Wound care will continue to follow.
--- NOTE | 2018-12-06 14:01 | PDCARPN ---
Cardiology Progress Note Chief Complaint: Patient reporting pain in right groin and thigh. Assessment/Plan: Assessment: 38-year-old male with no previous cardiac or medical issues, with regular ETOH and cocaine use. Admitted on 11/23/2018 for pain in right leg, found to be in AFib with RVR (ventricular rates up to 80 BPM), CHF, and clot in left atrial system and renal arteries bilateral. Echocardiogram done on 11/23/2018 showing reduced LV systolic function. MOISES done on 11/26/2018 noting severely reduce LV systolic function, with EF 20-25% severe global hypokinesis, no thrombus in LV, aneurysm intra-atrial septum with small PFO. Mobile left atrial appendage thrombus measuring approximately 1.26 cm x 1.63 cm. Kmqf-yj-afsmkmul MR, mild TR. Underwent right femoral popliteal embolectomy and thrombectomy for acute ischemic legs x2. 12/06/2017 Patient reports no chest pain or pressure. Reports shortness of breath continues to improve. Continuous cardiac monitoring showing atrial fibrillation, with noted elevated rates up to 120, with exertion. Patient continues to report pain right groin, and thigh. Ultrasound of lower extremity pending. Output remains greater than input, weight down 2 kilos from yesterday. Peripheral edema improving. BUN 14, creatinine 0.6. Plan: 1. Cardiomyopathy: EF 20-25% by MOISES. Ischemia has not been ruled out. Noted to have mildly bumped troponins on admission. Trended to normal. More likely cause from excessive rate due to AFib, and drug/alcohol use. Started on carvedilol, Aldactone, and lisinopril. Denying symptoms suggesting of cardiac ischemia. Echo noted reduced EF 20-25%, but with no wall motion abnormalities, global hypokinesis. Discussed cardiac ischemic workup with Dr. Reyez. Poor candidate for coronary angiogram at this time unless patient is having active symptoms of ischemia, due to recent thrombotic events (occlusion to SFA and renal infarct), left atrial thrombus, and need to be on full anticoagulation. Patient poor candidate for coronary CTA due to AFib with rates unable to go less than 60 BPM. Continue medical treatment with carvedilol, aspirin, lisinopril, and Aldactone. Will plan Yolanda MPI study as an outpatient. Will need repeated echocardiogram in 2-3 months, for re-evaluation with med management. 2. Systolic heart failure: Transition to torsemide 40 mg p. O. Twice daily yesterday. No significant bump in BUN creatinine. Continue monitoring daily weights, eyes and nose. 3. Persistent atrial fibrillation: Continues to have elevated rates despite recent increase of carvedilol to 50 mg p.o. Twice daily and digoxin 250 mics p.o. Daily. Elevated rates with exertion. Most recent level of digoxin was 0.9. Patient poor candidate for calcium channel blockers due to cardiomyopathy , not a candidate for amiodarone due to potential risk of chemical cardioversion and left atrial thrombus. Patient not a candidate for cardioversion due to left atrial appendage thrombus. Will give 1 time IV dose of digoxin today, to see if help with rate control. Continue on Xarelto. Consider of cardioversion with MOISES in the next 4-6 week after the institution of anticoagulation therapy. 4. 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 Continue to monitor. 5. Acute ischemic leg with SFA occlusion: Status post thrombectomy with pulses present. Patient has been cleared by surgery to sit in chair. Pain management and activity restriction per surgery and hospitalist services. Patient reporting pain in right thigh, surgery as ordered ultrasound for evaluation. 6. EtOH and cocaine abuse: Patient should abstain. Per discharge planning, patient will be referred to substance abuse treatment as an outpatient upon discharge 12/06/18 13:57 Subjective: Denies of any chest pressure or pain. Reports shortness of breath has improved. Denies of any orthopnea, PND. Denies of any palpitations, lightheadedness, near-syncope or syncopal events. Reviewed/Discussed With: other Objective: Vital Signs (8 Hrs) Temp Pulse Resp BP Pulse Ox 12/06/18 12:15 118 H 99/64 L 12/06/18 11:10 37.1 C 112 H 19 117/79 93 12/06/18 07:42 37.4 C 103 H 18 119/69 90 L Intake/Output (24 Hrs) 12/05/18 12/06/18 12/07/18 05:59 05:59 05:59 Intake Total 1665 1250 350 Output Total 6400 3575 2500 Balance -6170 -3387 -5628 Intake: Oral (ml) 1440 1250 350 IV Intake (ml) 225 Output: Urine (ml) 6400 3575 2500 Catheter 5700 Urinal 700 3575 2500 Other: Weight 165.5 kg 163.1 kg Number of Voids Urinal 1 Number of Stools Toilet 1 Result Diagrams: 12/06/18 06:25 12/06/18 06:25 Cardiac Labs: Cardiac Lab Results (72 Hrs) 12/04/18 10:22 Troponin I 0.013 - Physical Exam Constitutional: no apparent distress, obese (Morbidly) Ears, Nose, Mouth, Throat: moist mucous membranes Cardiovascular: no rubs, no gallops, irregularly irregular (AFib with RVR, no other malignant arrhythmias.), jugular vein distention (4 cm above sternal notch at a 45 degree angle), pulses symmetric bilat, No carotid bruit Peripheral Pulses: 1+: dorsalis-pedis (R), dorsalis-pedis (L), 2+: carotid (R), carotid (L) Respiratory: clear to auscultate bilat, no crackles, no wheezes Gastrointestinal: normoactive bowel sounds, no tenderness Skin: warm, No no edema (+2 to 3 peripheral edema bilateral lower extremities to knees) Neurologic: AAOx3 Psychiatric: cooperative, interactive, following commands ICD10 Worksheet Patient Problems: Problems Problem Status Onset Cardiomyopathy Acute Arterial embolism and thrombosis of lower extremity Acute Renal infarct Acute
--- NOTE | 2018-12-06 20:44 | HOSPPROG ---
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 -PO oxycodone * Afib with RVR -increase coreg -cardioversion 4-6 weeks * DM II - new diagnosis - HgA1c 11 -Lantus * Morbid obesity BMI 44 * Etoh/cocaine abuse Subjective: Pain adequately controlled on PO meds Objective: Vital Signs Temp Pulse Resp BP Pulse Ox 36.6 C 105 H 12 99/70 L 92 12/06/18 20:00 12/06/18 20:00 12/06/18 20:00 12/06/18 20:00 12/06/18 20:00 Laboratory Results 12/06/18 06:25 12/06/18 06:25 12/05/18 12/06/18 12/07/18 05:59 05:59 05:59 Intake Total 1665 1250 350 Output Total 6400 3575 4050 Balance -4735 -2325 -3700 PT 16.9 SEC (12.0-15.0) H 11/28/18 05:55 INR 1.36 (0.83-1.16) H 11/28/18 05:55 d/w Ivanna lorenz for discharge from surgery standpoint tele reviewed - rapid afib - Physical Exam Constitutional: no apparent distress, appears nourished, not in pain Cardiovascular: no murmur, rub, or gallop, irregularly irregular, tachycardia, No edema Respiratory: no respiratory distress, no rales or rhonchi, clear to auscultation Gastrointestinal: normoactive bowel sounds, soft, non-tender abdomen, no palpable masses Skin: no rashes or abrasions, no fluctuance, no induration Neurologic: AAOx3, sensation intact bilaterally Psychiatric: interacting appropriately, not anxious, not encephalopathic, thought process linear ICD10 Worksheet Patient Problems: Problems Problem Status Onset Cardiomyopathy Acute Arterial embolism and thrombosis of lower extremity Acute Renal infarct Acute
--- NOTE | 2018-12-06 21:20 | SOAPPROG ---
SOAP Progress Note Assessment/Plan: Assessment: 38 y/o man with no previous cardiac and medical issues but regular ETOH and cocaine use came to ER with painful right leg and found to be in afib at 180bpm , CHF and clot in right leg arterial system and renal arteries bilateral. MOISES better defined true heart function with LVEF 22% and still large DIANA clot. His afib is better controlled and he is starting to have large amounts of IV diureses. PLAN: 1)decrease Aldactone to 25mg PO qam. as serum K+ slightly high and getting ready for discharge to home. 2)rest of meds without changes. 3)hopefully home in next 2-3 days once leg pain better controlled with close follow up in [facility] CHF clinic 12/06/18 21:18 Subjective: feels stronger. Walking hospital hallways without AGUIRRE or near syncope. Still painful leg with edema. Objective: Vital Signs Temp Pulse Resp BP Pulse Ox 36.6 C 105 H 12 99/70 L 92 12/06/18 20:00 12/06/18 20:00 12/06/18 20:00 12/06/18 20:00 12/06/18 20:00 Laboratory Results 12/06/18 06:25 12/06/18 06:25 12/05/18 12/06/18 12/07/18 05:59 05:59 05:59 Intake Total 1665 1250 350 Output Total 6400 3575 4050 Balance -4735 -2325 -3700 PT 16.9 SEC (12.0-15.0) H 11/28/18 05:55 INR 1.36 (0.83-1.16) H 11/28/18 05:55 Physical Exam - Physical Exam General Appearance: alert, obese EENT: PERRL/EOMI Neck: non-tender Respiratory: lungs clear Cardiac/Chest: JVD, tachycardia, systolic murmur, irregularly irregular Peripheral Pulses: 1+: femoral (R), femoral (L), dorsalis-pedis (R), dorsalis- pedis (L), 2+: carotid (R), carotid (L) Abdomen: non-tender Skin: warm/dry Extremities: pedal edema Neuro/Psych: alert ICD10 Worksheet Patient Problems: Problems Problem Status Onset Arterial embolism and thrombosis of lower extremity Acute Cardiomyopathy Acute Renal infarct Acute
[2018-12-06] MEDS: MELATONIN 3 MG TAB PO SCH (21:53)
[2018-12-07] MEDS: SPIRONOLACTONE 25 MG TAB PO SCH ×2 (07:28→09:26)
[2018-12-07] MEDS: INSULIN LISPRO 100 UNIT/ML SC SCH ×3 (08:07→18:37)
[2018-12-07] MEDS: oxyCODONE IR 5 MG TAB PO PRN ×4 (08:23→21:54)
[2018-12-07] MEDS: INSULIN GLARGINE 100 UNITS/ML UNIT SC SCH (09:23)
[2018-12-07] MEDS: SENNOSIDES/DOCUSATE SODIUM TAB PO SCH ×2 (09:24→21:53)
[2018-12-07] MEDS: POLYETHYLENE GLYCOL 3350 17 GM PKT PO SCH (09:26)
[2018-12-07] MEDS: TORSEMIDE 20 MG TAB PO SCH ×2 (09:27→15:26)
[2018-12-07] MEDS: LISINOPRIL 10 MG TAB PO SCH (09:27)
[2018-12-07] MEDS: CARVEDILOL 25 MG TAB PO SCH ×2 (09:29→18:36)
[2018-12-07] MEDS: THIAMINE HCL 100 MG TAB PO SCH (09:29)
[2018-12-07] MEDS: ASPIRIN EC 81 MG TAB PO SCH (09:30)
[2018-12-07] MEDS: DIGOXIN 250 MCG TAB PO SCH (09:30)
[2018-12-07] MEDS: RIVAROXABAN 15 MG TAB PO SCH ×2 (09:31→18:36)
[2018-12-07] MEDS: MAGNESIUM OXIDE 400 MG TAB PO SCH ×3 (09:31→21:53)
[2018-12-07] MEDS ORDERED: POLYETHYLENE GLYCOL 3350 17 GM PKT PO PRN (10:51)
--- NOTE | 2018-12-07 12:00 | SOAPPROG ---
SOAP Progress Note Assessment/Plan: Assessment: 38 y/o man with no previous cardiac and medical issues but regular ETOH and cocaine use came to ER with painful right leg and found to be in afib at 180bpm , CHF and clot in right leg arterial system and renal arteries bilateral. MOISES better defined true heart function with LVEF 22% and still large DIANA clot. His afib is better controlled and he has mobilized a lot of his anasarca. His leg pain is almost all now treated with PO narcotics. PLAN: 1)no change in current cardiac meds. 2)am labs (12/08): CBC, BMP and BNP level 3)?discharge home tomorrow with supplemental O2. 4)f/u CHF clinic with Dr. Corona in 7-10 days from discharge. 5)probably out-pt lexiscan cardiolite in next 4-5 weeks. 6)recheck echo in three months. 12/07/18 11:56 Subjective: feels better. AGUIRRE at 50-100ft with mild right leg pain. Denies palpitations, CP , near syncope or PND. Objective: Vital Signs Temp Pulse Resp BP Pulse Ox 37.2 C 116 H 16 112/63 94 12/07/18 08:00 12/07/18 09:30 12/07/18 08:00 12/07/18 09:29 12/07/18 08:00 Laboratory Results 12/06/18 06:25 12/07/18 05:00 12/06/18 12/07/18 12/08/18 05:59 05:59 05:59 Intake Total 1250 600 Output Total 3575 5000 525 Balance -2325 -4400 -525 PT 16.9 SEC (12.0-15.0) H 11/28/18 05:55 INR 1.36 (0.83-1.16) H 11/28/18 05:55 Physical Exam - Physical Exam General Appearance: alert, obese EENT: PERRL/EOMI Neck: non-tender Respiratory: lungs clear Cardiac/Chest: JVD, tachycardia, systolic murmur, irregularly irregular, No gallop Peripheral Pulses: 1+: femoral (R), femoral (L), dorsalis-pedis (R), dorsalis- pedis (L), 2+: carotid (R), carotid (L) Abdomen: non-tender, No guarding, No rebound, No ascites Skin: warm/dry Extremities: pedal edema (1-2+ bilateral edema to below level of knees now.) Neuro/Psych: alert ICD10 Worksheet Patient Problems: Problems Problem Status Onset Arterial embolism and thrombosis of lower extremity Acute Cardiomyopathy Acute Renal infarct Acute
--- NOTE | 2018-12-07 18:37 | HOSPPROG ---
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 -PO oxycodone * Afib with RVR -increase coreg -cardioversion 4-6 weeks -per cardiology okay to discharge with suboptimal rate control as limited options * DM II - new diagnosis - HgA1c 11 -Lantus * Morbid obesity BMI 44 * Etoh/cocaine abuse Subjective: Some leg pain, but improved Objective: Vital Signs Temp Pulse Resp BP Pulse Ox 36.8 C 95 13 97/66 L 95 12/07/18 16:47 12/07/18 16:47 12/07/18 16:47 12/07/18 16:47 12/07/18 16:47 Laboratory Results 12/06/18 06:25 12/07/18 05:00 12/06/18 12/07/18 12/08/18 05:59 05:59 05:59 Intake Total 5660 002 5313 Output Total 3575 5000 1725 Balance -2325 -4400 1275 PT 16.9 SEC (12.0-15.0) H 11/28/18 05:55 INR 1.36 (0.83-1.16) H 11/28/18 05:55 d/w mian guevara - ok to discharge tomorrow despite suboptimal rate control tele reviewed - rapid afib - Physical Exam Constitutional: no apparent distress, appears nourished, not in pain Cardiovascular: irregularly irregular, tachycardia, No edema Respiratory: no respiratory distress, no rales or rhonchi, clear to auscultation Gastrointestinal: normoactive bowel sounds, soft, non-tender abdomen, no palpable masses Skin: no rashes or abrasions, no fluctuance, no induration Neurologic: AAOx3, sensation intact bilaterally Psychiatric: interacting appropriately, not anxious, not encephalopathic, thought process linear ICD10 Worksheet Patient Problems: Problems Problem Status Onset Cardiomyopathy Acute Arterial embolism and thrombosis of lower extremity Acute Renal infarct Acute
[2018-12-07] MEDS: MELATONIN 3 MG TAB PO SCH (21:53)
[2018-12-08] MEDS: oxyCODONE IR 5 MG TAB PO PRN ×3 (05:41→13:40)
[2018-12-08 08:01] VITALS: BP 118/87
--- NOTE | 2018-12-08 08:33 | SOAPPROG ---
SOAP Progress Note Assessment/Plan: Assessment: 38 y/o man with no previous cardiac and medical issues but regular ETOH and cocaine use came to ER with painful right leg and found to be in afib at 180bpm , CHF and clot in right leg arterial system and renal arteries bilateral. MOISES better defined true heart function with LVEF 22% and still large DIANA clot. His afib is better controlled and he has mobilized a lot of his anasarca. His leg pain is almost all now treated with PO narcotics. He continues to feels better. Afib rate now in 90's. PLAN: 1)no change in current cardiac meds. 2)labs as out-pt in seven days (CBC and BMP). 3)f/u CHF clinic-[facility] with ecg in ten days 4)fluid restrict 64 oz/day. Yesterday drank > 3000cc Thanks. will sign off. Call if stays longer in hospital and need cardiology help. 12/08/18 08:30 Subjective: feels better. Still right leg pain but able to stand on right leg and push off and walk in hallways. Denies AGUIRRE, palpitations, CP, PND or near syncope or TIA sx. Objective: Vital Signs Temp Pulse Resp BP Pulse Ox 36.7 C 107 H 12 118/87 H 96 12/08/18 08:00 12/08/18 08:00 12/08/18 08:00 12/08/18 08:00 12/08/18 08:00 Laboratory Results 12/08/18 05:45 12/08/18 05:45 12/07/18 12/08/18 12/09/18 05:59 05:59 05:59 Intake Total 600 3850 Output Total 5000 3325 Balance -4400 525 PT 16.9 SEC (12.0-15.0) H 11/28/18 05:55 INR 1.36 (0.83-1.16) H 11/28/18 05:55 Physical Exam - Physical Exam General Appearance: alert, obese EENT: normal ENT inspection Neck: non-tender Respiratory: lungs clear Cardiac/Chest: systolic murmur, irregularly irregular, No gallop, No JVD Peripheral Pulses: 1+: femoral (R), femoral (L), dorsalis-pedis (R), dorsalis- pedis (L), 2+: carotid (R), carotid (L) Abdomen: non-tender, No guarding, No rebound, No ascites Skin: warm/dry Extremities: pedal edema (1+ bilateral edema to knees.) Neuro/Psych: oriented x 3 ICD10 Worksheet Patient Problems: Problems Problem Status Onset Arterial embolism and thrombosis of lower extremity Acute Cardiomyopathy Acute Renal infarct Acute
[2018-12-08] MEDS: INSULIN LISPRO 100 UNIT/ML SC SCH ×2 (09:15→13:10)
[2018-12-08] MEDS: INSULIN GLARGINE 100 UNITS/ML UNIT SC SCH (09:15)
[2018-12-08] MEDS: THIAMINE HCL 100 MG TAB PO SCH (09:16)
[2018-12-08] MEDS: DIGOXIN 250 MCG TAB PO SCH (09:16)
[2018-12-08] MEDS: TORSEMIDE 20 MG TAB PO SCH (09:16)
[2018-12-08] MEDS: ASPIRIN EC 81 MG TAB PO SCH (09:16)
[2018-12-08] MEDS: SPIRONOLACTONE 25 MG TAB PO SCH (09:16)
[2018-12-08] MEDS: SENNOSIDES/DOCUSATE SODIUM TAB PO SCH (09:17)
[2018-12-08] MEDS: MAGNESIUM OXIDE 400 MG TAB PO SCH (09:17)
[2018-12-08] MEDS: RIVAROXABAN 15 MG TAB PO SCH (09:17)
[2018-12-08] MEDS: CARVEDILOL 25 MG TAB PO SCH (09:17)
[2018-12-08] MEDS: LISINOPRIL 10 MG TAB PO SCH (09:17)
--- NOTE | 2018-12-08 09:48 | PDHOMEO2F ---
Home Oxygen Face to Face Home Orders: I certify that a physician or a nurse practitioner or physician's general office assistant has had a zkak-ti-bvld encounter with this patient on the date of this order due to the diagnosis listed, which relates to the primary reason the patient requires home oxygen. Alternative treatments have been tried, or considered, and deemed ineffective. It is anticipated that supplemental oxygen will result in improvement with treatment. Home oxygen qualifying diagnosis: CHF SpO2 on room air (%): 87 Frequency of home oxygen needed: continuous Home oxygen liters per minute: 2 Home oxygen delivery device: nasal cannula Concentrator: Yes E-tanks for mobility and back up: Yes If ordering portable O2, is the patient mobile in the home?: Yes I certify that, based on these findings, the home oxygen is medically necessary for this patient for the following length of time. Length of time home oxygen needed: 3 months
--- NOTE | 2018-12-08 10:03 | PDIAF ---
- Diagnosis Diagnosis: CHF, afib, arterial clot, new diabetes Code Status: Full Code - Medication Management Discharge Medications: electronically signed and located in the Home Medication List. - Orders Services needed: Home Care, Registered Nurse, Physical Therapy, Occupational Therapy Home Care Face to Face: I certify that this patient was under my care and that I had the required viqy-ez-myez encounter meeting the encounter requirements on the discharge day. My findings support the fact that the patient is homebound as defined in Home Care Face to Face Continued: CMS Chapter 7 Medicare Benefits Manual 30.1.1 , The condition of the patient is such that there exists a normal inability to leave home and consequently, leaving home would require a considerable and taxing effort. Diet Recommendation: ADA 2000 consistent carb Weigh Patient: daily Additional Instructions: Home O2 09/05 Outpatient sleep study Fluid restrict 64oz per day Outpatient stress test Cardioversion 4-6 weeks Need to establish PCP for diabetes management Change dressings to right 5th toe wound every 3 days and prn. 1. Clean and flush wound well with ns and pat dry with gauze 2. tear off a piece of felice agand apply a piece large enough to cover the wound beds. There shouldnt be much extra, but if there is you may overlap it onto itself. 3. Moisten the prismal ag+ piece of collagen with a couple of drops of NS. 4. Cut a piece of hydrofera blue ready to fit into wound bed and apply to wound bed with the writing side facing up. 5. Cover with tegaderm Sara Torab CWON - Labs/Radiology BMP Date: 12/14/18 CBC w/diff Date: 12/14/18 - Follow Up Care Current Providers and Referrals: Jonathan Alanis MD [Medical Doctor] - follow up in 10 days NONE *PRIMARY CARE P,. [Primary Care Provider] - As per Instructions Nba Corona MD [Medical Doctor] - follow up in 10 days
--- NOTE | 2018-12-08 10:30 | ASMTLACE ---
LACE Length of stay for Answers: 14 days or more current admission Acuity / Level of Answers: Yes Care: Did the patient have an inpatient admission? Comorbidities - select Answers: Other Notes: Cardiomyopathy all that apply # of Emergency department Answers: 1-2 visits in the last 6 months Social determinants Answers: History of substance abuse (ETOH, street drugs, prescription drugs, etc.) Score: 15 Date Signed: 12/08/2018 10:30 AM Electronically Signed By:BISI Jarrett
--- NOTE | 2018-12-08 11:08 | SOAPPROG ---
SOAP Progress Note Assessment/Plan: Assessment/plan: 38 y/o M with DM and hx of cocaine abuse s/p R femoral-popliteal embolectomy and thrombectomy for acute ischemic leg x2 Large L atrium thrombus A-fib. Not a candidate for cardioversion due to thrombus in L atrium Appreciate. Cardiology input. Bilateral lower extremity arterial occlusions. Both feet warm on exam today. Excellent pedal pulses on doppler Bilateral renal occlusions. uop adequate and Cr nl. L flank pain stable Xarelto started. Ok to get up oob Plan for discharge today. Remove angie prior to discharge. S: No complaints. Denies pain. O: Alert Afebrile VSS, HDS Cardiac: irregularly irregular Chest: Ctab, no increased wob Abdomen: soft, nontender Bilateral lower extremities: + pedal pulses on doppler, brisk cap refill. R 5th metatarsal with open wound. Xray negative for osteo. Wound appears clean with healthy granulation tissue. No tunneling. R groin incision cdi with angie intact. 12/08/18 11:07 Objective: Vital Signs Temp Pulse Resp BP Pulse Ox 36.7 C 99 12 118/87 H 87 L 12/08/18 08:00 12/08/18 09:16 12/08/18 08:00 12/08/18 08:00 12/08/18 09:45 Laboratory Results 12/08/18 05:45 12/08/18 05:45 12/07/18 12/08/18 12/09/18 05:59 05:59 05:59 Intake Total 600 3850 Output Total 5000 3325 Balance -4400 525 PT 16.9 SEC (12.0-15.0) H 11/28/18 05:55 INR 1.36 (0.83-1.16) H 11/28/18 05:55 ICD10 Worksheet Patient Problems: Problems Problem Status Onset Arterial embolism and thrombosis of lower extremity Acute Cardiomyopathy Acute Renal infarct Acute
--- NOTE | 2018-12-08 14:58 | ASMTCMCOM ---
CM Note CM Note Notes: Pts case discussed w/ Dr. Miranda and Claudia RN. CM made multiple referrals for HC. 0 HC agency is able to accept pt at this time either due to his insurance or staffing issues. CM phoned pt on his cell and recommended that he calls [facility] to be seen tomorrow. CM made pt an appointment for pt to be seen at [facility] for Tuesday. CM spoke to pt on the phone. He will follow up with [facility]. Date Signed: 12/08/2018 02:58 PM Electronically Signed By:BISI Jarrett
--- NOTE | 2018-12-08 14:59 | ASDISCHSUM ---
Discharge Information Plan Status:Home with Home Health Medically Cleared to Leave:12/07/2018 Discharge Date:12/08/2018 01:56 PM CM D/C Disposition: ADT D/C Disposition:Home Health Service Projected Discharge Date:12/08/2018 11:00 AM Transportation at D/C: Discharge Delay Reason: Follow-Up Date:12/08/2018 11:00 AM Discharge Slot: Final Diagnosis: Placement Information Referral Type:*Home Health Care Services Referral ID:[id number] Provider Name: Address 1: Phone Number: Address 2: Fax Number: City: Selection Factors: State: Patient Contact Information Contact Name:SHENA Relationship:Mother Address:[address] Work Phone: City:[facility] Phone: [facility] Code:[place] [address] Email: Financial Information Financial Class:HMO and PPO Plans Primary Plan Desc:[facility] Primary Plan Number:[id number] Secondary Plan Desc: Secondary Plan Number: Assessment Information LACE LACE Length of stay for Answers: 14 days or more current admission Acuity / Level of Answers: Yes Care: Did the patient have an inpatient admission? Comorbidities - select Answers: Other Notes: Cardiomyopathy all that apply # of Emergency department Answers: 1-2 visits in the last 6 months Social determinants Answers: History of substance abuse (ETOH, street drugs, prescription drugs, etc.) Score: 15 Date Signed: 12/08/2018 10:30 AM Electronically Signed By:BISI Jarrett [facility] Initial CM Assessment Living Arrangements What is your living Answers: Alone arrangement? Who do you live with? Type Of Residence What kind of residence do Answers: Apartment you live in? 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 Patient is being admitted for acute ischemic right leg w SFA oclusion, left leg ischemia, bilateral renal artery occlusions and infarcts, left atrial thrombus, AFIB, and severely impaired left ventricular systolic function. Patient drinks ETOH and smokes and is at high risk for withdrawal. No therapies ordered at this time. CAGE needed when patient is able to participate. D/C plan TBD. CM will follow. Date Signed: 11/24/2018 12:31 PM Electronically Signed By:Taty Servin LCSW [facility] CHUCK Progress Note CM Note CM Note Notes: 11/26/2018 Case Management Note Discussed pt during rounds today. MOISES planned for today. There are no therapy evals ordered as of today. Pt will need outpatient sleep study after discharge. Case Management d/c poc: remains to be determined. Case Management to follow. 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 Patient is being admitted for acute ischemic right leg w SFA oclusion, left leg ischemia, bilateral renal artery occlusions and infarcts, left atrial thrombus, AFIB, and severely impaired left ventricular systolic function. Patient drinks ETOH and smokes and is at high risk for withdrawal. No therapies ordered at this time. CAGE needed when patient is able to participate. D/C plan TBD. CM will follow. Date Signed: 11/26/2018 12:42 PM Electronically Signed By:Lelo Newman RN [facility] CM Progress Note CM Note CM Note Notes: Per hospitalist, patient likely has 4-5 more days inpatient. He has not been out of bed but reports that he will be allowed to move tomorrow. He reports that he live with roomates. If he is able to ambulate safely, I imagine he will d/c home independently. Case Management available for any d/c needs. Date Signed: 11/28/2018 01:49 PM Electronically Signed By:Mei Martinez RN [facility] CM Progress Note CM Note CM Note Notes: CM reviewed pts case. PT has cleared pt to d/c home without any needs. CM available for changes. Plan: Independent Date Signed: 12/01/2018 04:51 PM Electronically Signed By:BISI Jarrett [facility] CM Progress Note CM Note CM Note Notes: CM reviewed chart and met with pt to assess ETOH and substance use. Pt reports that he wants to remain clean and is open to resources and linkage in the community prior to discharge. Pt reports this hospitalization has been an eye rn hemodialysis charge for him and he is willing to get support. CM to follow-up with resources and information about linkage in the community. Pt interested in case management services as well. CM to assess what resources are available that accept his insurance. Plan: Likely home independent with outpatient linkages. Date Signed: 12/04/2018 03:05 PM Electronically Signed By:BISI Lerma CAGE Questionnaire CAGE Do you feel you ought to Answers: Yes cut down on your drinking or drug use? Do people annoy you by Answers: Yes criticizing your drinking or drug use? Do you feel guilty about Answers: Yes your drinking or drug use? Do you drink or use drugs Answers: No first thing in the morning ([employer])? Additional Comments Pt interested in resources and outpatient linkage. Date Signed: 12/04/2018 03:06 PM Electronically Signed By:BISI Lerma [facility] CM Progress Note CM Note CM Note Notes: CM met with pt, provided with resources on sobriety. Pt provided education on scheduling follow-up with [facility]/ various substance abuse resources and pt reports he will ask for assistance if needed. Pt reports he is appreciative of information. Pt has been cleared by PT/OT, will likely discharge independently. CM available if needs arise. Plan: Independent once medically stable. Date Signed: 12/05/2018 02:22 PM Electronically Signed By:BISI Lerma [facility] Progress Note CHUCK Note CHUCK Note Notes: Pts case discussed w/ Dr. Miranda and LAYNE Taylor. CHUCK made multiple referrals for HC. 0 HC agency is able to accept pt at this time either due to his insurance or staffing issues. CHUCK phoned pt on his cell and recommended that he calls [facility] to be seen tomorrow. CHUCK made pt an appointment for pt to be seen at [facility] for Tuesday. CHUCK spoke to pt on the phone. He will follow up with [facility]. Date Signed: 12/08/2018 02:58 PM Electronically Signed By:BISI Jarrett Intervention Information
--- NOTE | 2018-12-08 18:34 | GDS ---
[f rep st] DISCHARGE SUMMARY DIAGNOSES: 1. Acute limb ischemia due to arterial emboli with right superficial femoral artery occlusion, statu s post embolectomy. 2. Left atrial thrombus. 3. Acute systolic congestive heart failure with an ejection fraction of 22%. 4. 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 5. Atrial fibrillation with rapid ventricular response. 6. Diabetes type 2, new diagnosis. Hemoglobin A1c 11. 7. Morbid obesity with a body mass index of 44. 8. Alcohol and cocaine abuse. HISTORY: The patient is a 38-year-old without past medical problems, who presented with right leg pa in. He was found to have acute limb ischemia due to a right SFA occlusion that was from arterial emb chiqui from his left atrial thrombus. He underwent embolectomy with Dr. Alanis. He is now on Xarelto. Echocardiogram showed an EF of only 20%. He was massively volume overloaded. He was diuresed with I V Lasix and is now euvolemic. Cardiology is recommending outpatient stress testing. He did have cuauhtemoc dence of bilateral renal artery occlusions with renal infarcts. Pain control was with oral oxycodone . He has AFib with rapid ventricular response. This was rate controlled with Coreg. We were not abl e to do a cardioversion due to his acute left atrial thrombus, but this can be considered in 4 to 6 w eeks. He was incidentally found to have a new diagnosis of diabetes. He is morbidly obese with a BM I of 44. His hemoglobin A1c was 11. He was started on Lantus insulin and will get close outpatient followup at [facility]. He will also follow up closely with Cardiology. DISCHARGE MEDICATIONS: Please see computerized record for full detailed list. New medications: 1. Aspirin 81 mg p.o. daily. 2. Coreg 50 mg p.o. twice daily. 3. Digoxin 250 mcg p.o. daily. 4. Lantus insulin 32 units subcu daily. 5. Lisinopril 10 mg p.o. daily. 6. Magnesium oxide 400 mg p.o. three times daily. 7. Spironolactone 25 mg p.o. daily. 8. Demadex 40 mg p.o. twice daily. 9. Xarelto 15 mg p.o. twice daily to complete the first 21 days of therapy and then decrease to 20 m g p.o. once a day. 10. Oxycodone 5 mg every 3 hours as needed for pain, 10 tablets dispensed. ADDITIONAL DISCHARGE INSTRUCTIONS: 1. Home oxygen 24/ for a room air saturation of 87% on room air. 2. Outpatient sleep study. I suspect this patient has sleep apnea. 3. Fluid restriction to 64 ounces per day per Dr. Corona. 4. Outpatient stress test. 5. Cardioversion in 4 to 6 weeks if he remains in AFib. 6. Need to establish primary care for diabetes management. The patient will follow up at [facility]. 7. Wound care instructions for dressing changes. Please refer to chart. 8. Follow up with Dr. Corona in 10 days. 9. Follow up with Dr. Alanis in 10 days. We attempted to arrange home health; however, he had no insurance benefit for this, so instead he ricardo l follow up closely at [facility]. TIME SPENT ON DISCHARGE: Greater than 30 minutes' time was spent arranging this discharge. The lanie ent was seen and examined by me on the day of discharge. /[id number]/MODL
--- NOTE | 2018-12-10 01:48 | GOP ---
[f rep st] OPERATIVE REPORT DATE OF OPERATION: 11/23/2018 SURGEON: Jonathan Alanis MD PERSONAL LINES SALES EXECUTIVE: Rosina Bright NP. PREOPERATIVE DIAGNOSIS: Acute right leg ischemia with femoral and popliteal emboli. POSTOPERATIVE DIAGNOSIS: Acute right leg ischemia with femoral and popliteal emboli. PROCEDURE PERFORMED: Right common femoral artery exposure with iliofemoral and popliteal thrombectom ies and embolectomies. FINDINGS: The patient was found to have good return flow from the distal leg and palpable pulse in t he foot after completion of the procedure and a large amount of clot burden as well as some obvious e mboli wedged at the common femoral artery and profunda femoris origin as well as the SFA origin. DESCRIPTION OF PROCEDURE: The patient was brought to the operating room where he received satisfacto ry general endotracheal anesthesia. He was placed in supine position and prepped and draped in the u sual sterile fashion. A vertical right groin incision was made and carried down through subcutaneous tissue. The area was quite deep as the patient was quite edematous. The superficial fascia was inc ised, and the common femoral artery, profunda femoris artery, and superficial femoral artery were all dissected free and controlled with vessel loops. They were all nonpulsatile. The patient was alrea dy systemically heparinized but was given additional heparin, and the vessels were then occluded with vessel loops. Arteriotomy was made in the common femoral artery, and a large volume of emboli was e ncountered. The Patel catheter was then passed down through the superficial femoral artery all way down through the popliteal artery with retrieval of a large amount of subacute thrombus as well as e mbolic material at the origin of the SFA. Another procedure was done on the profunda femoris with re moval of large amounts of thrombus and emboli with spiritism of good backflow from the profunda wit h decent backflow from the superficial femoral artery as well. The Patel catheter was then passed cephalad, and a large amount of embolic material was removed restoring very strong inflow. Catheters were passed multiple times in all 3 directions until there was no further debris removed, and there was good flow in all vessels. The arteriotomy was then closed with a running 5-0 Prolene suture, and flow was first established through the profunda femoris and then back down the superficial femoral a rtery. Hemostasis was assured. Heparin was not reversed. The patient had palpable although slightl y weak pulses in his right foot, and we did not feel that there was any need for fasciotomy at this p oint. The groin incision was infiltrated with 0.5% Marcaine and closed in layers using 2-0 Vicryl fo r the fascia, 3-0 Vicryl for the subcu in multiple layers, and skin angie for the skin. He tolerat ed the procedure well and was taken to recovery room in good condition. Blood loss was less than 100 cc. There were no complications. /[id number]/MODL
== END 2018-12-08 13:56 | disposition home or self-care (01) | DRG 252 ==
LOC: F2N 17:00 → F2W 11-29 16:00
PROVIDERS: ADMIT Internal Medicine; ATTEND Internal Medicine
PROC: 04CM0ZZ Extirpation of Matter from Right Popliteal Artery, Open Approach (ICD-10-PCS; principal; 2018-11-23 13:15)
PROC: 04CK0ZZ Extirpation of Matter from Right Femoral Artery, Open Approach (ICD-10-PCS; principal; 2018-11-23 13:15)
PROC: 04CK0ZZ Extirpation of Matter from Right Femoral Artery, Open Approach (ICD-10-PCS; 2018-11-25)
PROC: B245ZZ4 Ultrasonography of Left Heart, Transesophageal (ICD-10-PCS; 2018-11-26)
PROC: 02HV33Z Insertion of Infusion Device into Superior Vena Cava, Percutaneous Approach (ICD-10-PCS; 2018-11-28)
DX: I74.3 Embolism and thrombosis of arteries of the lower extremities (principal); I11.0 Hypertensive heart disease with heart failure; I50.21 Acute systolic (congestive) heart failure; N28.0 Ischemia and infarction of kidney; Z68.41 Body mass index [BMI] 40.0-44.9, adult; I42.0 Dilated cardiomyopathy; I48.1 Persistent atrial fibrillation; I51.3 Intracardiac thrombosis, not elsewhere classified; E11.9 Type 2 diabetes mellitus without complications; E66.01 Morbid (severe) obesity due to excess calories; F14.90 Cocaine use, unspecified, uncomplicated; F12.90 Cannabis use, unspecified, uncomplicated; G47.30 Sleep apnea, unspecified; Z72.0 Tobacco use; Z72.89 Other problems related to lifestyle
CPT/HCPCS: 80305; 80307; 82435-PO; 82565-PO; 82947-PO; 84132-PO; 84295-PO; 84484-ER; 84520-PO; 85014-ER; 85520-90; 86141-90; 86705-90; 96365; 96366; 97110-GP; 97116-GP; 97161-GP; 97166-GO; 97530-GO; 97535-GO; C1751; C1757; C1768; G0472; G0480; J0153; J0690; J1120; J1160; J1170; J1644; J1815; J1940; J2250; J2270; J2370; J2405; J2440; J2704; J3010; J3475; Q9961; Q9967

== ENCOUNTER 2019-02-01 07:14 | Day surgery (SDC) | payer OTHER ==
[2019-02-01] MEDS ORDERED: ATROPINE SULFATE 1 MG/10 ML SYR IVP ONE (07:17)
[2019-02-01] MEDS ORDERED: NS 1,000 ML IV ONE (07:17)
[2019-02-01 08:07] LABS: INR 1.94 (0.83-1.16); PROTIME(PATIENT) 21.2 SEC (12.0-15.0)
--- NOTE | 2019-02-01 08:37 | PDHPUP ---
History & Physical Update H&P update statement: This history and physical update is based on an assessment of the patient which was completed after admission or registration (within 24 hours), but prior to the surgery/procedure. H&P update: H&P reviewed & patient examined, no change in patient's condition since H&P completed (has been taking his Xarelto without interruption. No bleeding or TIA sx. )
--- NOTE | 2019-02-01 08:37 | PDPROPOC ---
Sedation Plan of Care Sedation Plan of Care: mental status noted, patient educated of risks, benefits , alternatives, patient can tolerate sedation ASA Classification: ASA 3 Planned drugs: other Mallampati Score: Class 3 Mallampati Reference Image: Patient passed 3-3-2 rule?: Yes
--- NOTE | 2019-02-01 08:59 | PDANEPAE ---
ANE History of Present Illness 38 year old morbidly obese male with history of clotting disorder, CHF and A- fib for MOISES and cardioversion. ANE Past Medical History - Cardiovascular History Hx Hypertension: Yes Hx Arrhythmias: Yes Hx Chest Pain: No Hx Coronary Artery / Peripheral Vascular Disease: No Hx CHF / Valvular Disease: Yes Hx Palpitations: Yes - Pulmonary History Hx COPD: No Hx Asthma/Reactive Airway Disease: No Hx Recent Upper Respiratory Infection: No Hx Oxygen in Use at Home: No Hx Sleep Apnea: Yes - Endocrine History Hx Diabetes: Yes - Renal History Hx Renal Disorders: Yes - Chronic Pain History Chronic Pain: No ANE Review of Systems Review of systems is: negative Review of Systems: ANE Patient History - Allergies Allergies/Adverse Reactions: amoxicillin Allergy (Verified 11/23/18 09:51) Other-Enter Comments Penicillins Allergy (Verified 11/23/18 09:51) Other-Enter Comments - Home Medications Home Medications: Omeprazole 20 mg PO Q2D 11/23/18 [Last Taken 11/22/18] - Smoking Hx Smoking Status: Former smoker ANE Labs/Vital Signs - Labs Result Diagrams: 02/01/19 07:30 - Vital Signs Height: 193.04 cm Weight: 131.542 kg ANE Physical Exam - Airway Neck exam: FROM Mallampati Score: Class 3 Mouth exam: normal dental/mouth exam - Pulmonary Pulmonary: no respiratory distress - Cardiovascular Cardiovascular: irregularly irregular - ASA Status ASA Status: III ANE Anesthesia Plan Anesthesia Plan: MAC
[2019-02-01] MEDS ORDERED: PROPOFOL 200 MG/20 ML VIAL ONE (09:00)
[2019-02-01] MEDS ORDERED: LIDOCAINE 1% 5 ML SDV ONE (09:01)
[2019-02-01] MEDS ORDERED: MIDAZOLAM 2 MG/2 ML VIAL ONE (09:01)
--- NOTE | 2019-02-01 09:21 | PDTEE1 ---
PALLAVI Cardioversion Procedure Procedure: electrical cardioversion, transesophageal echo Indications: atrial fibrillation, cardiomyopathy Consent: signed and in chart Anticoagulation: xarelto Procedural Details: Pads were placed in anterior-posterior position. PALLAVI probe was advanced and standard images obtained. There is no evidence of left atrial or left atrial appendage thrombus. Synchronized cardioversion attempt #1: 300J Results: normal sinus rhythm Conclusions: successful cardioversion (pallavi done on seperate report. LVEF now 40- 45% and no cardiac thrombus or DIANA clot seen.) Patient Problems: Problems Problem Status Onset Arterial embolism and thrombosis of lower extremity Acute Cardiomyopathy Acute Renal infarct Acute
[2019-02-01] MEDS ORDERED: NALOXONE HCL 0.4 MG/ML INJ IVP PRN (09:24)
--- NOTE | 2019-02-01 09:25 | POSTANESTH ---
Post Anesthetic Evaluation Cardiovascular Status: Normal, Stable Respiratory Status: Normal, Stable Level of Consciousness/Mental Status: Can Participate in Eval Pain Control: Adequate, Prn Tx Ordered Nausea/Vomiting Control: Adequate, Prn Tx Ordered Complications Possibly Related to Anesthesia: None Noted
--- NOTE | 2019-02-01 11:03 | CPR ---
[f rep st] NONINVASIVE CARDIAC PROCEDURE REPORT DATE OF PROCEDURE: 02/01/2019 PROCEDURE PERFORMED: Elective electrical cardioversion. INDICATIONS: Atrial fibrillation and cardiomyopathy. CONSENT: Signed. Risks, benefits, and alternatives discussed with patient. He wishes to proceed. MEDICATIONS USED: Versed 2 mg IV and propofol 340 mg IV per Anesthesia service with continuous pulse oximetry and hemodynamic monitoring. TECHNICAL DIFFICULTIES: DESCRIPTION OF PROCEDURE: Immediately beforehand, the patient had a transesophageal echo, which demo nstrated improvement in his EF from 23% to 43% and no evidence of a left atrial clot. He was initial ly in atrial fibrillation with a heart rate of 97 beats per minute and a blood pressure of 132/90. W ith adequate deep sedation and AP pads placed, he received a 300 joule synchronized shock, which conv erted him to sinus rhythm at 88 beats per minute with a blood pressure of 133/86. He awoke from samuel tion with no new neurological deficits. COMPLICATIONS: None. IMPRESSIONS: Successful cardioversion of atrial fibrillation to sinus rhythm with single 300 joule s ynchronized shock. /[id number]/MODL
--- NOTE | 2019-02-01 13:24 | CPEKG ---
Test Reason : OPEN Blood Pressure : / mmHG Vent. Rate : 097 BPM Atrial Rate : 000 BPM P-R Int : 161 ms QRS Dur : 089 ms QT Int : 335 ms P-R-T Axes : 000 064 242 degrees QTc Int : 426 ms Atrial fibrillation Ventricular premature complex Low voltage, extremity leads Diffuse repol abnl Confirmed by Renetta Schneider ([id number]) on 02/01/2019 1:23:52 PM Referred By: Nba Corona Confirmed By:Renetta Schneider
--- NOTE | 2019-02-01 13:27 | CPEKG ---
Test Reason : OPEN Blood Pressure : / mmHG Vent. Rate : 096 BPM Atrial Rate : 096 BPM P-R Int : 176 ms QRS Dur : 091 ms QT Int : 332 ms P-R-T Axes : 066 052 055 degrees QTc Int : 420 ms Sinus rhythm Low voltage, extremity leads Nonspecific T abnrm, anterolateral leads compared with 02/01/2019 at 7:32 a.m. a.m., sinus rhythm has been restored Confirmed by Renetta Schneider ([id number]) on 02/01/2019 1:26:58 PM Referred By: Nba Corona Confirmed By:Renetta Schneider
--- NOTE | 2019-02-01 20:22 | ECHO ---
[email or web address] [address] [address] Main: [phone] Echocardiography Examination Transesophageal Name: ESSENCE CORDON MR#: [id number] Study Date: 02/01/2019 Study Time: 09:02 AM Date of : 1980 Age: 38 year(s) Height: ( ) Weight: ( ) BSA: Gender: Male Examination: MOISES Contrast: Image Quality: Rhythm: Heart Rate: BP: / Indication: Pre Cardioversion Procedure Staff Referring Physician: Press Machine Operator: Ryan Castañeda RDCS Reading Physician: Nba Corona MD Requesting Provider: Ordering Physician: Nba Corona MD Indication: Pre Cardioversion Conclusions Left Ventricle: CONCLUSIONS:1)Mildly reduced LV systolic function with a LVEF of 43%.2)Moderate left atrial enlargement. Intra-atrial septal aneursym noted with left to right PFO and positive IV bubble study.3)No clot or thrombus seen in any of the four cardiac chambers or left atrial appendage. PW dopper in DIANA 40cm/sec.4)Trivial MR without MV prolapse.5)Mild TR noted.6)Normal size ascending thoracic aorta (2.5cm) with no dissection flap or atherom. Complications: none. Findings Left Ventricle: CONCLUSIONS: 1)Mildly reduced LV systolic function with a LVEF of 43%. 2)Moderate left atrial enlargement. Intra-atrial septal aneursym noted with left to right PFO and positive IV bubble study. 3)No clot or thrombus seen in any of the four cardiac chambers or left atrial appendage. PW dopper in DIANA 40cm/sec. 4)Trivial MR without MV prolapse. 5)Mild TR noted. 6)Normal size ascending thoracic aorta (2.5cm) with no dissection flap or atherom. Complications: none. Right Ventricle: The RV function appears grossly normal. Patient: ESSENCE CORDON Study Date: 02/01/2019 Page 1 of 2 09:02 AM Left Atrium Appendage: Good color flow doppler in the left atrial appendage. No thrombus is identified. IAS: An agitated saline study was performed and was positive for intracardiac shunting. Right Atrium: The right atrium is normal in size. Mitral Valve: Mitral valve appears structurally normal. Trivial mitral regurgitation. Aortic Valve: Aortic leaflets are structurally normal. No significant aortic valve regurgitation. The aortic valve is trileaflet. Tricuspid Valve: Tricuspid valve leaflets are structurally normal. Mild tricuspid regurgitation. Pulmonic Valve: No significant pulmonic valve regurgitation is evident. Aorta: The aorta is normal. Pericardium: No pericardial effusion. Exam Details Procedure Ordered: MOISES (No Signature Object) Patient: ESSENCE CORDON Study Date: 02/01/2019 Page 2 of 2 09:02 AM [id number]
== END 2019-02-01 11:03 | disposition home or self-care (01) ==
LOC: FCATH 07:14
PROVIDERS: ATTEND Internal Medicine Cardiovascular Disease
PROC: 5A2204Z Restoration of Cardiac Rhythm, Single (ICD-10-PCS; principal; 2019-02-01)
PROC: B245ZZ4 Ultrasonography of Left Heart, Transesophageal (ICD-10-PCS; principal; 2019-02-01)
DX: I48.1 Persistent atrial fibrillation (principal); I50.21 Acute systolic (congestive) heart failure; E66.01 Morbid (severe) obesity due to excess calories; F14.11 Cocaine abuse, in remission; F10.11 Alcohol abuse, in remission; E11.9 Type 2 diabetes mellitus without complications; I77.9 Disorder of arteries and arterioles, unspecified; Z68.35 Body mass index [BMI] 35.0-35.9, adult
CPT/HCPCS: J0461; J2250; J2704